=== PATIENT | male | born 1930 | race Caucasian/White ===

== ENCOUNTER → 2017-03-15 | Outpatient (CLI) | payer MEDICARE ==
[2017-03-15 09:23] LABS: Basophils # (A) 0.1 k/uL (0-0.2); Basophils % (A) 1 %; CHCM 34.6; Eosinophils # (A) 0.4 k/uL (0-0.7); Eosinophils % (A) 6 %; HDW 2.26; HGB 15.5 gm/dL (13.0-17.5); Luc # (Auto) 0.15; Luc % (Auto) 2; Lymphocytes # (A) 2.9 k/uL (1.0-4.8); Lymphocytes % (A) 42 %; MCH 31.5 pg (25.0-35.0); MCV 95.7 fL (80.0-100.0); Mean Platelet Volume 7.4; Monocytes # (A) 0.5 k/uL (0-1.0); Monocytes % (A) 7 %; Neutrophils # (A) 2.8 k/uL (1.3-7.7); Neutrophils % (A) 41 %; RBC 4.91 m/uL (4.30-5.90); RDW 13.4 % (11.5-15.5); WBC 6.7 k/uL (3.8-10.6); WBC (Perox) 6.38
[2017-03-15 09:45] LABS: ALT 41 U/L (21-72); AST 42 U/L (17-59); Alkaline Phosphatase 78 U/L (38-126); Anion Gap 7 mmol/L; Blood Urea Nitrogen 13 mg/dL (9-20); Calcium 9.1 mg/dL (8.4-10.2); Carbon Dioxide 34 mmol/L (22-30); Chloride 88 mmol/L (98-107); Cholesterol 170 mg/dL (<200); Glucose 86 mg/dL (74-99); HDL Cholesterol 64 mg/dL (40-60); Non-African American GFR(MDRD) >60 (>60 ml/min/1.73 sqM); Sodium 129 mmol/L (137-145); Total Bilirubin 1.2 mg/dL (0.2-1.3); Total Protein 6.6 g/dL (6.3-8.2)
== END | disposition home or self-care (01) ==
LOC: LABWHC1 08:28
PROVIDERS: ATTEND Internal Medicine
DX: E78.5 Hyperlipidemia, unspecified (principal); I10 Essential (primary) hypertension
CPT/HCPCS: 36415; 80053; 80061; 84439; 84443; 85025

== ENCOUNTER 2018-04-30 12:13 | Emergency (ER) | payer MEDICARE ==
[2018-04-30 12:37] VITALS: BP 149/81; PULSE 82; RESP 18; TEMP 98.3
[2018-04-30] MEDS ORDERED: KETOROLAC 60 MG/2 ML VIAL IM STA (13:11)
--- NOTE | 2018-04-30 13:20 | ED ---
General Adult HPI - General Chief complaint: Extremity Injury, Upper Stated complaint: swollen wrist Time Seen by Provider: 04/30/18 12:35 Source: patient, RN notes reviewed Mode of arrival: ambulatory Limitations: no limitations - History of Present Illness Initial comments: This is an 87-year-old male presents emergency Department complaining of right medial wrist pain. Patient states the area is very tender and swollen. Patient doesn't recall any injury. Patient denies any hand pain. Patient was elbow pain. Patient denies any history of gout. Patient denies any fever chills. Patient states he woke up this morning with the pain is the first time he noticed it. - Related Data Allergies Allergy/AdvReac Type Severity Reaction Status Date / Time aspirin Allergy Unknown Verified 04/30/18 12:37 Review of Systems ROS Statement: Those systems with pertinent positive or pertinent negative responses have been documented in the HPI. ROS Other: All systems not noted in ROS Statement are negative. Past Medical History Past Medical History: Asthma History of Any Multi-Drug Resistant Organisms: None Reported Past Surgical History: No Surgical Hx Reported Past Psychological History: No Psychological Hx Reported Smoking Status: Never smoker Past Alcohol Use History: None Reported Past Drug Use History: None Reported General Exam - General Exam Comments Initial Comments: GENERAL Patient is well-developed and well-nourished. Patient is in mild distress. EYES Patient's pupils are equal and round. Extraocular motion is intact SKIN Unremarkable NEURO The patient is alert and oriented 3 PYSCH Patient has normal interpersonal interactions. MUSCULOSKELETAL Patient's right medial wrist is tender and mildly swollen. Limitations: no limitations Course Vital Signs 04/30/18 12:34 Temperature 98.3 F Pulse Rate 82 Respiratory 18 Rate Blood Pressure 149/81 O2 Sat by Pulse 95 Oximetry Medical Decision Making - Medical Decision Making X-ray of the wrist showed no acute abnormality. Disposition Clinical Impression: Sprain and strain of wrist Disposition: HOME SELF-CARE Condition: Good Instructions: Wrist Injury (ED) Additional Instructions: Patient should take 400 mg of Motrin every 6 hours. Is patient prescribed a controlled substance at d/c from ED?: No Referrals: Nasrin Carr MD [Primary Care Provider] - 1-2 days Time of Disposition: 14:34
--- NOTE | 2018-04-30 14:11 | XR ---
EXAMINATION TYPE: XR wrist complete RT DATE OF EXAM: 04/30/2018 COMPARISON: NONE HISTORY: 87-year-old male pain and swelling lateral aspect TECHNIQUE: 4 views FINDINGS: Diffuse osteopenia. Tiny 2 mm density adjacent to the radial styloid process. There is TFC calcificat ion as well as scattered synovial calcification. Large chronic ununited fracture fragment measuring 1 .3 cm of the ulnar styloid process. No acute fracture, subluxation, or dislocation seen. Moderate deg enerative change at the triscaphe joint and first MCP joint. Mild at the first CMC joint. IMPRESSION: 1. TFC and scattered synovial calcifications. Findings could be idiopathic or could reflect CPPD. 2. Additional tiny 2 mm calcification adjacent to the radial styloid process. If pain localizes here, a calcific capsulitis is possible. 3. 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 4. Osteopenia without acute fracture seen. 5. Degenerative changes at the thumb and triscaphe joint.
== END 2018-04-30 15:00 | disposition home or self-care (01) ==
LOC: EC 12:13
DX: S66.911A Strain of unspecified muscle, fascia and tendon at wrist and hand level, right hand, initial encounter (principal); S63.501A Unspecified sprain of right wrist, initial encounter; Z88.6 Allergy status to analgesic agent
CPT/HCPCS: 96372; 99283

== ENCOUNTER → 2018-05-07 | Outpatient (CLI) | payer MEDICARE ==
[2018-05-07 12:01] LABS: Basophils % (A) 0 %; Eosinophils # (A) 0.3 k/uL (0-0.7); Eosinophils % (A) 4 %; HCT 44.3 % (39.0-53.0); HGB 14.9 gm/dL (13.0-17.5); Lymphocytes # (A) 2.2 k/uL (1.0-4.8); Lymphocytes % (A) 35 %; MCH 31.9 pg (25.0-35.0); MCHC 33.6 g/dL (31.0-37.0); MCV 95.1 fL (80.0-100.0); Mean Platelet Volume 6.5; Monocytes # (A) 0.3 k/uL (0-1.0); Monocytes % (A) 5 %; Neutrophils # (A) 3.4 k/uL (1.3-7.7); Neutrophils % (A) 54 %; Platelet Count 273 k/uL (150-450); RBC 4.66 m/uL (4.30-5.90); RDW 12.1 % (11.5-15.5); WBC 6.3 k/uL (3.8-10.6)
[2018-05-07 12:22] LABS: Albumin 3.7 g/dL (3.5-5.0); Calcium 9.3 mg/dL (8.4-10.2); Potassium 4.4 mmol/L (3.5-5.1); Total Protein 6.5 g/dL (6.3-8.2)
[2018-05-07 12:37] LABS: T4, Free (Free Thyroxine) 1.29 ng/dL (0.78-2.19)
== END | disposition home or self-care (01) ==
LOC: LABWHC1 10:31
PROVIDERS: ATTEND Internal Medicine
DX: Z00.00 Encounter for general adult medical examination without abnormal findings (principal); E78.5 Hyperlipidemia, unspecified; E87.1 Hypo-osmolality and hyponatremia
CPT/HCPCS: 36415; 80053; 80061; 84439; 84443; 85025

== ENCOUNTER 2018-10-21 09:13 | Observation (INO) | payer MEDICARE ==
[2018-10-21] MEDS ORDERED: MORPHINE SULFATE 4 MG/ML SYRINGE IV STA (10:02)
[2018-10-21] MEDS ORDERED: SODIUM CHLORIDE 0.9% 500 ML 500 ML IV ONE (10:02)
[2018-10-21] MEDS ORDERED: methylPREDNISolone SOD SUCCI 125 MG/2 ML VIAL IV STA (10:04)
--- NOTE | 2018-10-21 10:06 | ED ---
General Adult HPI - General Chief complaint: Fall Stated complaint: Back pain Time Seen by Provider: 10/21/18 09:45 Source: patient, RN notes reviewed Mode of arrival: EMS Limitations: no limitations - History of Present Illness Initial comments: Patient is a pleasant 88-year-old male presenting to the emergency Department with son-in-law for back problems. Patient did have a fall 1 month ago and may have had some other falls. Patient has no history of chronic back problems prior to that. Patient has gone and orthopedics in [place] as well as e mergency department there. Patient has had x-rays and has had steroid injection. Patient is having difficulty getting around the house. Patient has decreased appetite. Area of discomfort is lower back. Discomfort does extend towards the bilateral buttocks and legs. - Related Data Home Medications Medication Instructions Recorded Confirmed ALPRAZolam [Xanax] 0.25 mg PO Q12H PRN 10/21/18 10/21/18 Acetaminophen-Codeine 300-30mg 1 tab PO Q6H PRN 10/21/18 10/21/18 [Tylenol w/codeine #3] Albuterol Sulfate [Proair Hfa] 2 puff INHALATION RT-QID PRN 10/21/18 10/21/18 Hydrochlorothiazide [Hydrodiuril] 25 mg PO MOWEFR 10/21/18 10/21/18 Mometasone/Formoterol [Dulera 200 2 puff INHALATION RT-BID 10/21/18 10/21/18 Mcg/5 Mcg Inhaler] Montelukast Sodium [Singulair] 10 mg PO HS 10/21/18 10/21/18 Zolpidem [Ambien] 5 mg PO HS 10/21/18 10/21/18 amLODIPine BESYLATE [Norvasc] 2.5 mg PO DAILY 10/21/18 10/21/18 Allergies Allergy/AdvReac Type Severity Reaction Status Date / Time aspirin Allergy Unknown Verified 04/30/18 12:37 Review of Systems ROS Statement: Those systems with pertinent positive or pertinent negative responses have been documented in the HPI. ROS Other: All systems not noted in ROS Statement are negative. Constitutional: Denies: fever Eyes: Denies: eye pain ENT: Denies: ear pain Respiratory: Denies: dyspnea Cardiovascular: Denies: chest pain Endocrine: Denies: fatigue Gastrointestinal: Denies: abdominal pain Genitourinary: Denies: dysuria Musculoskeletal: Reports: as per HPI, back pain Skin: Denies: rash Neurological: Denies: weakness Past Medical History Past Medical History: Asthma Additional Past Medical History / Comment(s): [place] History of Any Multi-Drug Resistant Organisms: None Reported Past Surgical History: No Surgical Hx Reported Past Psychological History: No Psychological Hx Reported Smoking Status: Never smoker Past Alcohol Use History: None Reported Past Drug Use History: None Reported General Exam Limitations: no limitations General appearance: alert, in no apparent distress Head exam: Present: atraumatic Eye exam: Present: normal appearance Neck exam: Present: normal inspection Respiratory exam: Present: normal lung sounds bilaterally Cardiovascular Exam: Present: regular rate, normal rhythm Expanded Peripheral pulses: 2+: Posterior Tibialis (R), Posterior Tibialis (L) GI/Abdominal exam: Present: soft. Absent: distended, tenderness, pulsatile mass Extremities exam: Present: normal inspection, full ROM. Absent: tenderness Back exam: Absent: tenderness Neurological exam: Present: alert. Absent: motor sensory deficit Psychiatric exam: Present: normal affect, normal mood Skin exam: Present: normal color Course Vital Signs 10/21/18 10/21/18 09:20 12:08 Temperature 98.8 F Pulse Rate 85 81 Respiratory 18 18 Rate Blood Pressure 147/74 173/85 O2 Sat by Pulse 97 96 Oximetry Medical Decision Making - Medical Decision Making Patient reevaluated. Patient and family updated. Case was discussed in detail with Dr. Milner, who will admit. Case was earlier discussed with Mariana, with Dr. Villarreal, covering for Dr. Carr who did recommend admission to Dr. Vitale. - Lab Data Result diagrams: 10/21/18 11:15 10/21/18 11:15 Lab Results 10/21/18 10/21/18 10/21/18 Range/Units 11:15 11:15 11:20 WBC 9.5 (3.8-10.6) k/uL RBC 4.62 (4.30-5.90) m/uL Hgb 14.1 (13.0-17.5) gm/dL Hct 43.0 (39.0-53.0) % MCV 93.2 (80.0-100.0) fL MCH 30.6 (25.0-35.0) pg MCHC 32.8 (31.0-37.0) g/dL RDW 12.6 (11.5-15.5) % Plt Count 319 (150-450) k/uL Neutrophils % 79 % Lymphocytes % 12 % Monocytes % 7 % Eosinophils % 1 % Basophils % 0 % Neutrophils # 7.4 (1.3-7.7) k/uL Lymphocytes # 1.2 (1.0-4.8) k/uL Monocytes # 0.6 (0-1.0) k/uL Eosinophils # 0.1 (0-0.7) k/uL Basophils # 0.0 (0-0.2) k/uL Sodium 133 L (137-145) mmol/L Potassium 4.0 (3.5-5.1) mmol/L Chloride 98 (98-107) mmol/L Carbon Dioxide 24 (22-30) mmol/L Anion Gap 11 mmol/L BUN 25 H (9-20) mg/dL Creatinine 0.78 (0.66-1.25) mg/dL Est GFR (CKD-EPI)AfAm >90 (>60 ml/min/1.73 sqM) Est GFR (CKD-EPI)NonAf 80 (>60 ml/min/1.73 sqM) Glucose 70 L (74-99) mg/dL Calcium 8.9 (8.4-10.2) mg/dL Total Bilirubin 1.6 H (0.2-1.3) mg/dL AST 41 (17-59) U/L ALT 33 (21-72) U/L Alkaline Phosphatase 94 (38-126) U/L Total Protein 5.5 L (6.3-8.2) g/dL Albumin 3.1 L (3.5-5.0) g/dL Urine Color Yellow Urine Appearance Clear (Clear) Urine pH 6.5 (5.0-8.0) Ur Specific [place] 1.012 (1.001-1.035) Urine Protein Trace H (Negative) Urine Glucose (UA) Negative (Negative) Urine Ketones 2+ H (Negative) Urine Blood Trace H (Negative) Urine Nitrite Negative (Negative) Urine Bilirubin Negative (Negative) Urine Urobilinogen <2.0 (<2.0) mg/dL Ur Leukocyte Esterase Large H (Negative) Urine RBC 3 (0-5) /hpf Urine WBC 35 H (0-5) /hpf Ur Squamous Epith Cells <1 (0-4) /hpf Urine Bacteria Rare H (None) /hpf Urine Mucus Rare H (None) /hpf - Radiology Data Radiology results: image reviewed (Lower spine x-ray shows no acute compression deformity. Anterolisthesis L5 on S1. Diffuse osseous demineralization is also seeing.) Disposition Clinical Impression: Low back pain, UTI (urinary tract infection), Dehydration Disposition: ADMITTED IP TO THIS HOSP Is patient prescribed a controlled substance at d/c from ED?: No Referrals: Nasrin Carr MD [Primary Care Provider] - 1-2 days Decision Time: 13:17
[2018-10-21 11:32] LABS: Basophils % (A) 0 %; Eosinophils # (A) 0.1 k/uL (0-0.7); Eosinophils % (A) 1 %; HGB 14.1 gm/dL (13.0-17.5); Lymphocytes # (A) 1.2 k/uL (1.0-4.8); Lymphocytes % (A) 12 %; MCH 30.6 pg (25.0-35.0); MCHC 32.8 g/dL (31.0-37.0); MCV 93.2 fL (80.0-100.0); Mean Platelet Volume 6.4; Monocytes # (A) 0.6 k/uL (0-1.0); Monocytes % (A) 7 %; Neutrophils # (A) 7.4 k/uL (1.3-7.7); Neutrophils % (A) 79 %; Platelet Count 319 k/uL (150-450); RBC 4.62 m/uL (4.30-5.90); RDW 12.6 % (11.5-15.5); WBC 9.5 k/uL (3.8-10.6)
[2018-10-21 11:47] LABS: Appearance,Urine Clear (Clear); Bacteria,Urine Rare /hpf; Bilirubin,Urine Negative (Negative); Blood,Urine Trace (Negative); Color,Urine Yellow; Glucose,Urine (UA) Negative (Negative); Ketones,Urine 2+ (Negative); Leukocyte Esterase,Urine Large (Negative); Mucus,Urine Rare /hpf; Nitrite,Urine Negative (Negative); PH, Urine 6.5 (5.0-8.0); Protein,Urine Trace (Negative); RBC,Urine 3 /hpf (0-5); Specific Gravity,Urine 1.012 (1.001-1.035); Squamous Epithelial Cell,Urine <1 /hpf (0-4); Urobilinogen,Urine <2.0 mg/dL (<2.0); WBC,Urine 35 /hpf (0-5)
--- NOTE | 2018-10-21 11:50 | XR ---
EXAMINATION TYPE: XR lumbar spine 2 or 3V DATE OF EXAM: 10/21/2018 CLINICAL HISTORY: Back pain after a fall TECHNIQUE: Frontal and lateral images of the lumbar spine are obtained. COMPARISON: None FINDINGS: There are 5 lumbar type vertebral bodies identified. There is diffuse osseous demineraliza tion. Grade 1 anterolisthesis is seen of L5 on S1. No vertebral body height loss of the lumbar spine is seen. Facet arthropathy is present from L3 through S1. Intervertebral disc space narrowing is seen at L3-L4. Mild atherosclerosis of the abdominal aorta is noted. IMPRESSION: No acute compression deformity of the lumbar spine. 1 anterolisthesis of L5 on S1. This m ay relate to facet hypertrophy. Diffuse osseous demineralization is also seen.
[2018-10-21 11:55] LABS: ALT 33 U/L (21-72); AST 41 U/L (17-59); Albumin 3.1 g/dL (3.5-5.0); Alkaline Phosphatase 94 U/L (38-126); Anion Gap 11 mmol/L; Blood Urea Nitrogen 25 mg/dL (9-20); Calcium 8.9 mg/dL (8.4-10.2); Carbon Dioxide 24 mmol/L (22-30); Chloride 98 mmol/L (98-107); Glucose 70 mg/dL (74-99); Sodium 133 mmol/L (137-145); Total Bilirubin 1.6 mg/dL (0.2-1.3); Total Protein 5.5 g/dL (6.3-8.2)
[2018-10-21] MEDS ORDERED: cefTRIAXone IN SWFI 1,000 MG/10 ML SYRINGE IVP STA (13:23)
[2018-10-21] MEDS ORDERED: MORPHINE SULFATE 4 MG/ML SYRINGE IV PRN (13:23)
[2018-10-21] MEDS ORDERED: NALOXONE 0.4 MG/ML 1 ML VIAL IV PRN (13:23)
[2018-10-21 14:11] VITALS: BMI 22.8
[2018-10-21] MEDS: SODIUM CHLORIDE 0.9% 1,000 ML IV SCH (14:16)
[2018-10-21] MEDS: KETOROLAC 30 MG/ML 1 ML VIAL IVP PRN (16:00)
[2018-10-21] MEDS ORDERED: ALBUTEROL NEBULIZED 2.5 MG/3 ML INHALATION PRN (16:35)
--- NOTE | 2018-10-21 16:42 | P.HPIM ---
History of Present Illness Patient is a pleasant 88-year-old the male came in with complaints of back pain did have some falls. Patient followed up the with orthopedic surgery as an outpatient and it did get extensive recent steroid injection patient did get an x-ray showed spondylolisthesis. Patient is complaining of severe radicular pain in both legs denied any increased weakness, and tingling numbness but does have sharp pain radiating to both buttock areas more so in the left side. Denied any bowel or bladder incontinence. Patient is being admitted because of extreme poor functionality and may need placement and to subacute rehabilitation. Pat ieshaina denied any UTI symptoms although urine is bit abnormal with positive leukocyte esterase elevated white blood cell count because of which patient was started on Rocephin patient may have mostly asymptomatic bacteriuria rather than UTI. Review of Systems REVIEW OF SYSTEMS: CONSTITUTIONAL: No fever, no malaise, no fatigue. HEENT: No recent visual problems or hearing problems. Denied any sore throat. CARDIOVASCULAR: No chest pain, orthopnea, PND, no palpitations, no syncope. PULMONARY: No shortness of breath, no cough, no hemoptysis. GASTROINTESTINAL: No diarrhea, no nausea, no vomiting, no abdominal pain. NEUROLOGICAL: No headaches, no weakness, no numbness. HEMATOLOGICAL: Denies any bleeding or petechiae. GENITOURINARY: Denies any burning micturition, frequency, or urgency. MUSCULOSKELETAL/RHEUMATOLOGICAL: As mentioned in HPI ENDOCRINE: Denies any polyuria or polydipsia. The rest of the 14-point review of systems is negative. Past Medical History Past Medical History: Asthma, Hearing Disorder / Deafness, Memory Impairment Additional Past Medical History / Comment(s): Some short term memory problems, [place] bilaterally. History of Any Multi-Drug Resistant Organisms: None Reported Past Surgical History: Appendectomy Additional Past Surgical History / Comment(s): Low back injection, colonoscopies, nasal polyps removed. Past Anesthesia/Blood Transfusion Reactions: No Reported Reaction Smoking Status: Never smoker - Past Family History Father Additional Family Medical History / Comment(s): Father of heart problems at the ageof 45yrs. Mother Family Medical History: No Reported History Medications and Allergies Home Medications Medication Instructions Recorded Confirmed Type ALPRAZolam [Xanax] 0.25 mg PO Q12H PRN 10/21/18 10/21/18 History Acetaminophen-Codeine 300-30mg 1 tab PO Q6H PRN 10/21/18 10/21/18 History [Tylenol w/codeine #3] Albuterol Sulfate [Proair Hfa] 2 puff INHALATION RT-QID PRN 10/21/18 10/21/18 History Hydrochlorothiazide [Hydrodiuril] 25 mg PO MOWEFR 10/21/18 10/21/18 History Mometasone/Formoterol [Dulera 200 2 puff INHALATION RT-BID 10/21/18 10/21/18 History Mcg/5 Mcg Inhaler] Montelukast Sodium [Singulair] 10 mg PO HS 10/21/18 10/21/18 History Zolpidem [Ambien] 5 mg PO HS 10/21/18 10/21/18 History amLODIPine BESYLATE [Norvasc] 2.5 mg PO DAILY 10/21/18 10/21/18 History Allergies Allergy/AdvReac Type Severity Reaction Status Date / Time aspirin Allergy Unknown Verified 04/30/18 12:37 Physical Exam Vitals: Vital Signs Temp Pulse Resp BP Pulse Ox 10/21/18 15:15 98.7 F 80 16 163/87 95 10/21/18 14:19 98.9 F 81 16 160/81 96 10/21/18 12:08 81 18 173/85 96 10/21/18 09:20 98.8 F 85 18 147/74 97 Intake and Output 10/21/18 10/21/18 10/21/18 06:59 14:59 22:59 Other: Weight 78.517 kg PHYSICAL EXAMINATION: GENERAL: The patient is alert and oriented x3, not in any acute distress. Well developed, well nourished. HEENT: Pupils are round and equally reacting to light. EOMI. No scleral icterus. No conjunctival pallor. Normocephalic, atraumatic. No pharyngeal erythema. No thyromegaly. CARDIOVASCULAR: S1 and S2 present. No murmurs, rubs, or gallops. PULMONARY: Chest is clear to auscultation, no wheezing or crackles. ABDOMEN: Soft, nontender, nondistended, normoactive bowel sounds. No palpable organomegaly. MUSCULOSKELETAL: Radicular pain as mentioned in HPI EXTREMITIES: No cyanosis, clubbing, or pedal edema. NEUROLOGICAL: Gross neurological examination did not reveal any focal deficits. SKIN: No rashes. Results CBC & Chem 7: 10/21/18 11:15 10/21/18 11:15 Labs: Abnormal Lab Results - Last 24 Hours (Table) 10/21/18 10/21/18 Range/Units 11:15 11:20 Sodium 133 L (137-145) mmol/L BUN 25 H (9-20) mg/dL Glucose 70 L (74-99) mg/dL Total Bilirubin 1.6 H (0.2-1.3) mg/dL Total Protein 5.5 L (6.3-8.2) g/dL Albumin 3.1 L (3.5-5.0) g/dL Urine Protein Trace H (Negative) Urine Ketones 2+ H (Negative) Urine Blood Trace H (Negative) Ur Leukocyte Esterase Large H (Negative) Urine WBC 35 H (0-5) /hpf Urine Bacteria Rare H (None) /hpf Urine Mucus Rare H (None) /hpf Thrombosis Risk Factor Assmnt - Choose All That Apply Any of the Below Risk Factors Present?: Yes Other Risk Factors: Yes Each Risk Factor Represents 3 Points: Age 75 years or older Other congenital or acquired thrombophilia - If yes, enter type in comment: No Thrombosis Risk Factor Assessment Total Risk Factor Score: 3 Thrombosis Risk Factor Assessment Level: Moderate Risk Assessment and Plan Plan: Lumbar radiculopathy with poor functionality, consulted orthopedic surgery patient will be started on Decadron PT and OT consultation, patient may need to disposition to subacute rehabilitation -Hyponatremia secondary to hydrochlorothiazide which will be held amlodipine dose will be increased patient blood pressure is bit elevated because of the pain. Patient will be started on Toradol as well for pain. -Hypertension -Possible asymptomatic bacteriuria possibility of urinary tract infection is low -Asthma without any significant exacerbation
[2018-10-21] MEDS: DEXAMETHASONE 4 MG TAB PO SCH ×2 (17:36→21:14)
[2018-10-21] MEDS: Acetaminophen-Codeine 300-30mg TAB PO PRN (17:38)
[2018-10-21] MEDS: SYMBICORT 160-4.5 MCG INHALER INHALATION SCH (19:27)
[2018-10-21] MEDS: FAMOTIDINE 20 MG TAB PO SCH (21:14)
[2018-10-21] MEDS: MONTELUKAST 10 MG TAB PO SCH (21:14)
[2018-10-21] MEDS: ZOLPIDEM 5 MG TAB PO SCH (21:14)
[2018-10-21] MEDS: HEPARIN SODIUM,PORCINE 5,000 UNIT/ML 1 ML VIAL SQ SCH (21:14)
[2018-10-22] MEDS: SODIUM CHLORIDE 0.9% 1,000 ML IV SCH ×2 (06:18→17:03)
[2018-10-22] MEDS: amLODIPine 5 MG TAB PO SCH (07:25)
[2018-10-22] MEDS: FAMOTIDINE 20 MG TAB PO SCH ×2 (07:25→21:12)
[2018-10-22] MEDS: DEXAMETHASONE 4 MG TAB PO SCH ×3 (07:25→21:55)
[2018-10-22] MEDS: HEPARIN SODIUM,PORCINE 5,000 UNIT/ML 1 ML VIAL SQ SCH ×2 (07:25→21:12)
[2018-10-22] MEDS: Acetaminophen-Codeine 300-30mg TAB PO PRN ×3 (07:30→19:25)
[2018-10-22] MEDS: KETOROLAC 30 MG/ML 1 ML VIAL IVP PRN ×3 (07:31→21:56)
[2018-10-22] MEDS ORDERED: HYDROCHLOROTHIAZIDE 25 MG TAB PO SCH (09:00)
[2018-10-22] MEDS: SYMBICORT 160-4.5 MCG INHALER INHALATION SCH ×2 (09:33→19:40)
--- NOTE | 2018-10-22 16:52 | P.CNOR ---
History of Present Illness - [facility] Consult date: 10/22/18 Requesting physician: Massimo Javier Consult reason: low back pain History of present illness: Patient is a very pleasant 88-year-old male who is seen and examined at bedside for further evaluation after consultation was placed for low back pain and lower extremity pain. Patient sustained a fall approximately 1 month ago where he fell into a ditch and was unable to get out of the ditch. He was taken to [facility] for further evaluation. He was not experiencing back pain at that time. Following that fall he has been experiencing some increased back pain along with some pain into the lower extremities and the buttocks. He presented back to [facility] for further evaluation. During his last trip to the emergency department he did undergo a steroid injection. He also was evaluated by orthopedics in [place] without significant acute finding s. He has continued to have some difficulty with ambulation and back pain. He presented to the emergency department yesterday, 10/21/2018 for further evaluation. Patient states he does live with his son-in-law. Patient states since his admission he is not experiencing any significant back pain. He feels his back pain and lower extremity and buttock pain has improved during his admission. His pain is currently being controlled with Toradol and Tylenol #3. At this time he does not feel he needs specific further treatment. He is currently happy with his treatment while in the hospital. Medicine is planning for placement to a subacute rehabilitation facility the time of discharge. X-ra ys of the lumbar spine were taken during his evaluation in emergency department. Past Medical History Past Medical History: Asthma, Hearing Disorder / Deafness, Memory Impairment Additional Past Medical History / Comment(s): Some short term memory problems, crow bilaterally. History of Any Multi-Drug Resistant Organisms: None Reported Past Surgical History: Appendectomy Additional Past Surgical History / Comment(s): Low back injection, colonosco pies, nasal polyps removed. Past Anesthesia/Blood Transfusion Reactions: No Reported Reaction Smoking Status: Never smoker - Past Family History Father Additional Family Medical History / Comment(s): Father of heart problems at the ageof 45yrs. Mother Family Medical History: No Reported History Medications and Allergies Home Medications Medication Instructions Recorded Confirmed Type ALPRAZolam [Xanax] 0.25 mg PO Q12H PRN 10/21/18 10/21/18 History Acetaminophen-Codeine 300-30mg 1 tab PO Q6H PRN 10/21/18 10/21/18 History [Tylenol w/codeine #3] Albuterol Sulfate [Proair Hfa] 2 puff INHALATION RT-QID PRN 10/21/18 10/21/18 History Hydrochlorothiazide [Hydrodiuril] 25 mg PO MOWEFR 10/21/18 10/21/18 History Mometasone/Formoterol [Dulera 200 2 puff INHALATION RT-BID 10/21/18 10/21/18 History Mcg/5 Mcg Inhaler] Montelukast Sodium [Singulair] 10 mg PO HS 10/21/18 10/21/18 History Zolpidem [Ambien] 5 mg PO HS 10/21/18 10/21/18 History amLODIPine BESYLATE [Norvasc] 2.5 mg PO DAILY 10/21/18 10/21/18 History Allergies Allergy/AdvReac Type Severity Reaction Status Date / Time aspirin Allergy Unknown Verified 04/30/18 12:37 Physical Examination Physical exam: Patient is awake, alert, and oriented 3 Vital signs stable Good chest excursion with deep inspiration and expiration Abdomen soft nontender Examination of lumbar spine reveals skin is intact with no abrasions, lacerations, or bruises; no erythema, purulence or signs of infection No significant pain with palpation of the lumbosacral spine Dorsiflexion, plantarflexion, and extensor hallucis longus positive sustained bilaterally Lower extremity strength 5/5 bilaterally Patient is able to lift legs off the bed independently without significant difficulty No lower extremity hyperreflexia bilaterally Straight leg test negative bilateral lower extremities No signs or symptoms of DVT; no calf pain No pain with internal and external rotation of the hips bilaterally Neurovascularly intact Results Pertinent studies: X-rays lumbosacral spine taken on 10/21/2018: L5-S1 significant degenerative disc disease and spondylolisthesis most likely due to spondylolysis; no evidence of vertebral body compression fracture - Labs Labs: Microbiology - Last 24 Hours (Table) 10/21/18 11:20 Urine Culture - Preliminary Urine,Voided H & H 10/21/18 Range/Units 11:15 Hgb 14.1 (13.0-17.5) gm/dL Hct 43.0 (39.0-53.0) % Result Diagrams: 10/21/18 11:15 10/21/18 11:15 Assessment and Plan Assessment: Assessment: Low back pain Lower extremity numbness and tingling, resolved L5-S1 significant degenerative disc disease L5-S1 spondylolisthesis Probable spondylolysis L5 History of recent falls (1) Spondylolisthesis at L5-S1 level Current Visit: Yes Status: Acute Code(s): M43.17 - SPONDYLOLISTHESIS, LUMBOSACRAL REGION SNOMED Code(s): 917417063 (2) Degenerative disc disease at L5-S1 level Current Visit: Yes Status: Acute Code(s): M51.36 - OTHER INTERVERTEBRAL DISC DEGENERATION, LUMBAR REGION SNOMED Code(s): 68106325 (3) History of recent fall Current Visit: Yes Status: Acute Code(s): Z91.81 - HISTORY OF FALLING SNOMED Code(s): 412952173 (4) Low back pain Current Visit: Yes Status: Acute Code(s): M54.5 - LOW BACK PAIN SNOMED Code(s): 921421070 Plan: Plan: 1. After reviewing of imaging, physical examination of the patient, and further discussion with the patient, we will currently plan to continue with conservative treatment. He has been experiencing recent falls and increased low back pain with lower extremity pain and pain in bilateral buttocks. The symptoms have improved during his admission here [facility]. We are not planning for surgical intervention at his lumbosacral spine. I do feel he could benefit from bracing given his ongoing back pain and evidence of spondylolisthesis. A prescription for an Exos LSO has been written, signed, and given the case management. They'll plan to try to obtain this brace for him. Once this brace is delivered and fitted appropriately, he may wear this brace for comfort support as needed during increased activities and ambulation. He will be cleared for discharge from orthopedic spine standpoint. We'll plan to have him follow up in outpatient setting on as-needed basis. If he has an exacerbation of his symptoms following discharge she may call the office to set up follow-up appointment. He may follow-up with René Kent PA-C or Dr. Jorge Ozuna at [facility]. 2. Patient will continue to be seen and examined by medicine for his other medical diagnoses Time with Patient: Greater than 30 (Including obtaining history, physical examination, reviewing of imaging, and dictation.)
--- NOTE | 2018-10-22 18:56 | P.PN ---
Subjective Progress Note Date: 10/22/18 Interval history: Patient is a pleasant 88-year-old the male came in with complaints of back pain did have some falls. Patient followed up the with orthopedic surgery as an outpatient and it did get extensive recent steroid injection patient did get an x-ray showed spondylolisthesis. Patient is complaining of severe radicular pain in both legs denied any increased weakness, and tingling numbness but does have sharp pain radiating to both buttock areas more so in the left side. Denied any bowel or bladder incontinence. Patient is being admitted because of extreme poor functionality and may need placement and to subacute rehabilitation. Patient denied any UTI symptoms although urine is bit abnormal with positive leukocyte esterase elevated white blood cell count because of which patient was started on Rocephin patient may have mostly asymptomatic bacteriuria rather than UTI. 10/22/2018 Evaluated by physical therapy, sub acute rehab recommended at discharge. Maintained on Decadron, Toradol. Complains of pain with movement/activity as mentioned above. Orthopedic spine evaluation pending. Afebrile. Urine culture in progress. Denies chest pain, palpitations or increasing shortness of breath. Denies lightheadedness , dizziness or focal deficits. Objective - Vital Signs Vital signs: Vital Signs Temp 97.4 F L 10/22/18 05:00 Pulse 81 10/22/18 05:00 Resp 16 10/22/18 05:00 BP 142/68 10/22/18 05:00 Pulse Ox 93 L 10/22/18 05:00 Intake & Output 10/21/18 10/22/18 10/22/18 18:59 06:59 18:59 Intake Total 840 Output Total 400 Balance 440 Weight 78.517 kg Intake: Intake, IV Titration 300 Amount Sodium Chloride 0.9% 1, 300 000 ml @ 75 mls/hr IV . [id number] [facility] Rx#:[id number] Oral 540 Output: Urine 400 Other: Voiding Method Urinal Urinal - Exam GENERAL: The patient is alert and oriented x3, no acute distress. Sitting up in a chair HEENT: Pupils are round and equally reacting to light. EOMI. No scleral icterus. No conjunctival pallor. Normocephalic, atraumatic. CARDIOVASCULAR: S1 and S2 present. No murmurs, rubs, or gallops. PULMONARY: Chest is clear to auscultation, no wheezing or crackles. ABDOMEN: Soft, nontender, nondistended, normoactive bowel sounds. No palpable organomegaly. MUSCULOSKELETAL: Radicular pain as mentioned in HPI EXTREMITIES: No cyanosis, clubbing, or pedal edema. NEUROLOGICAL: Gross neurological examination did not reveal any focal deficits. SKIN: No rashes. - Labs CBC & Chem 7: 10/21/18 11:15 10/21/18 11:15 Labs: Abnormal Lab Results - Last 24 Hours (Table) 10/21/18 10/21/18 Range/Units 11:15 11:20 Sodium 133 L (137-145) mmol/L BUN 25 H (9-20) mg/dL Glucose 70 L (74-99) mg/dL Total Bilirubin 1.6 H (0.2-1.3) mg/dL Total Protein 5.5 L (6.3-8.2) g/dL Albumin 3.1 L (3.5-5.0) g/dL Urine Protein Trace H (Negative) Urine Ketones 2+ H (Negative) Urine Blood Trace H (Negative) Ur Leukocyte Esterase Large H (Negative) Urine WBC 35 H (0-5) /hpf Urine Bacteria Rare H (None) /hpf Urine Mucus Rare H (None) /hpf Microbiology - Last 24 Hours (Table) 10/21/18 11:20 Urine Culture - Preliminary Urine,Voided Assessment and Plan Assessment: Lumbar radiculopathy with poor functionality, orthopedic spine evaluation pending -Hyponatremia secondary to hydrochlorothiazide,held -Hypertension, pain induced -Possible asymptomatic bacteriuria possibility of urinary tract infection low, culture pending -Asthma without any significant exacerbation Plan: Continue on current medication regime , Pepcid, heparin subcu ,monitoring and symptomatic treatment. Pain management. Continue on Decadron, Toradol. Orthopedic consult in place with recommendations pending. [facility] records are being obtained regarding back pain visits. Subacute rehab recommended at discharge as per PT. Further recommendations to follow. The impression and plan of care has been dictated as directed. : I performed a history and examination of this patient, discussed the same with the dictator. I agree with the dictator's note ,documented as a scribe. Any additional findings or plans will be noted.
[2018-10-22] MEDS: MONTELUKAST 10 MG TAB PO SCH (21:12)
[2018-10-22] MEDS: ZOLPIDEM 5 MG TAB PO SCH (22:51)
[2018-10-23] MEDS: Acetaminophen-Codeine 300-30mg TAB PO PRN ×2 (03:59→10:22)
[2018-10-23] MEDS: SYMBICORT 160-4.5 MCG INHALER INHALATION SCH (07:41)
[2018-10-23] MEDS: SODIUM CHLORIDE 0.9% 1,000 ML IV SCH (08:22)
[2018-10-23] MEDS: KETOROLAC 30 MG/ML 1 ML VIAL IVP PRN (08:29)
[2018-10-23 09:01] LABS: Basophils % (A) 0 %; Eosinophils % (A) 0 %; HCT 43.4 % (39.0-53.0); HGB 13.7 gm/dL (13.0-17.5); Lymphocytes # (A) 1.1 k/uL (1.0-4.8); Lymphocytes % (A) 10 %; MCHC 31.5 g/dL (31.0-37.0); MCV 95.2 fL (80.0-100.0); Mean Platelet Volume 6.9; Monocytes # (A) 0.3 k/uL (0-1.0); Monocytes % (A) 3 %; Neutrophils # (A) 10.4 k/uL (1.3-7.7); Neutrophils % (A) 87 %; Platelet Count 404 k/uL (150-450); RBC 4.56 m/uL (4.30-5.90); RDW 12.6 % (11.5-15.5); WBC 11.9 k/uL (3.8-10.6)
[2018-10-23 09:14] LABS: Calcium 8.9 mg/dL (8.4-10.2); Potassium 3.8 mmol/L (3.5-5.1)
[2018-10-23] MEDS: amLODIPine 5 MG TAB PO SCH (09:40)
[2018-10-23] MEDS: FAMOTIDINE 20 MG TAB PO SCH (09:40)
[2018-10-23] MEDS: DEXAMETHASONE 4 MG TAB PO SCH (09:40)
[2018-10-23] MEDS: HEPARIN SODIUM,PORCINE 5,000 UNIT/ML 1 ML VIAL SQ SCH (09:41)
[2018-10-23] MEDS ORDERED: SODIUM CHLORIDE 0.9% 1,000 ML IV SCH (10:45)
[2018-10-23] MEDS ORDERED: Acetaminophen-Codeine 300-30mg TAB PO PRN (11:25)
[2018-10-23] MEDS ORDERED: SENNOSIDES 8.6 MG TAB PO PRN (11:30)
--- NOTE | 2018-10-23 13:38 | P.PN ---
Subjective 88-year-old the male came in with complaints of back pain did have some falls. Patient followed up the with orthopedic surgery as an outpatient and it did get extensive recent steroid injection patient did get an x-ray showed spondylolisthesis. Patient is complaining of severe radicular pain in both legs denied any increased weakness, and tingling numbness but does have sharp pain radiating to both buttock areas more so in the left side. Denied any bowel or bladder incontinence. Patient is being admitted because of extreme poor functionality and may need placement and to subacute rehabilitation. Patient denied any UTI symptoms although urine is bit abnormal with positive leukocyte esterase elevated white blood cell count because of which patient was started on Rocephin patient may have mostly asymptomatic bacteriuria rather than UTI. 10/22/2018 Evaluated by physical therapy, sub acute rehab recommended at discharge. Maintained on Decadron, Toradol. Complains of pain with movement/activity as mentioned above. Orthopedic spine evaluation pending. Afebrile. Urine culture in progress. Denies chest pain, palpitations or increas ing shortness of breath. Denies lightheadedness , dizziness or focal deficits. 10/23/2018 Patient still has back pain was evaluated by orthopedic surgery had a brace patient will undergo physical therapy and subacute rehabilitation along with anti-inflammatories and pain management. Patient's radicular pain did improve Constitutional: Denied any fatigue denied any fever. Cardio vascular: denied any chest pain, palpitations Gastrointestinal denied any nausea vomiting Pulmonary: Denied any shortness of breath cough Neurologic denied any new focal deficits All inpatient medications were reviewed and appropriate changes in these medications as dictated in the interval history and assessment and plan. Objective - Vital Signs Vital signs: Vital Signs Temp 97.6 F 10/23/18 12:46 Pulse 89 10/23/18 12:46 Resp 17 10/23/18 12:46 BP 175/87 10/23/18 12:46 Pulse Ox 94 L 10/23/18 12:46 Intake & Output 10/22/18 10/23/18 10/23/18 18:59 06:59 18:59 Intake Total 1250 1180 Output Total 400 Balance 1250 780 Weight 78.517 kg Intake: Intake, IV Titration 100 Amount cefTRIAXone 1 gm In 100 Sodium Chloride 0.9% 50 ml @ 100 mls/hr IVPB [facility] Rx#:[id number] Oral 1150 1180 Output: Urine 400 Other: Voiding Method Urinal Urinal Urinal # Voids 2 - Exam GENERAL: The patient is alert and oriented x3, no acute distress. Sitting up in a chair HEENT: Pupils are round and equally reacting to light. EOMI. No scleral icterus. No conjunctival pallor. Normocephalic, atraumatic. CARDIOVASCULAR: S1 and S2 present. No murmurs, rubs, or gallops. PULMONARY: Patient has mild bibasilar crackles on exam with good air entry into bilateral lung pillai alert, chest x-ray most probably atelectasis ABDOMEN: Soft, nontender, nondistended, normoactive bowel sounds. No palpable organomegaly. MUSCULOSKELETAL: Radicular pain as mentioned in HPI EXTREMITIES: No cyanosis, clubbing, or pedal edema. NEUROLOGICAL: Gross neurological examination did not reveal any focal deficits. SKIN: No rashes. - Labs CBC & Chem 7: 10/23/18 08:09 10/23/18 08:09 Labs: Abnormal Lab Results - Last 24 Hours (Table) 10/23/18 10/23/18 Range/Units 08:09 08:09 WBC 11.9 H (3.8-10.6) k/uL Neutrophils # 10.4 H (1.3-7.7) k/uL Sodium 136 L (137-145) mmol/L BUN 43 H (9-20) mg/dL Glucose 134 H (74-99) mg/dL Assessment and Plan Plan: Lumbar radiculopathy with poor functionality, orthopedic surgery evaluated the patient continue with anti-inflammatories along with the Decadron possible is patient to subacute rehabilitation and patient decided to place for that -Hyponatremia secondary to hydrochlorothiazide which will be held amlodipine dose was increased. -Hypertension - asymptomatic bacteriuria possibility of urinary tract infection is low, antiemetics will be discontinued -Asthma without any significant exacerbation
--- NOTE | 2018-10-23 14:37 | P.DS ---
Providers Date of admission: 10/21/18 13:23 Attending physician: Thang Milner Consults: 10/21/18 13:23 Consult Physician Urgent Consulting Provider: Bandar Ozuna Consult Reason/Comments: back pain Do you want consulting provider notified?: Yes Primary care physician: Nasrin Lilly [facility] Course: 88-year-old the male came in with complaints of back pain did have some falls. Patient followed up the with orthopedic surgery as an outpatient and it did get extensive recent steroid injection patient did get an x-ray showed spondylolisthesis. Patient is complaining of severe radicular pain in both legs denied any increased weakness, and tingling numbness but does have sharp pain radiating to both buttock areas more so in the left side. Denied any bowel or bladder incontinence. Patient is being admitted because of extreme poor functionality and may need placement and to subacute rehabilitation. Patient denied any UTI symptoms although urine is bit abnormal with positive leukocyte esterase elevated white blood cell count because of which patient was started on Rocephin patient may have mostly asymptomatic bacteriuria rather than UTI. 10/22/2018 Evaluated by physical therapy, sub acute rehab recommended at discharge. Maintained on Decadron, Toradol. Complains of pain with movement/activity as mentioned above. Orthopedic spine evaluation pending. Afebrile. Urine culture in progress. Denies chest pain, palpitations or increasing shortness of breath. Denies lightheadedness , dizziness or focal deficits. 10/23/2018 Patient still has back pain was evaluated by orthopedic surgery had a brace patient will undergo physical therapy and subacute rehabilitation along with anti-inflammatories and pain management. Patient's radicular pain did improve. Patient is being discharged today to subacute rehabilitation - Exam GENERAL: The patient is alert and oriented x3, no acute distress. Sitting up in a chair HEENT: Pupils are round and equally reacting to light. EOMI. No scleral icterus. No conjunctival pallor. Normocephalic, atraumatic. CARDIOVASCULAR: S1 and S2 present. No murmurs, rubs, or gallops. PULMONARY: Patient has mild bibasilar crackles on exam with good air entry into bilateral lung pillai alert, chest x-ray most probably atelectasis ABDOMEN: Soft, nontender, nondistended, normoactive bowel sounds. No palpable organomegaly. MUSCULOSKELETAL: Radicular pain as mentioned in HPI EXTREMITIES: No cyanosis, clubbing, or pedal edema. NEUROLOGICAL: Gross neurological examination did not reveal any focal deficits. SKIN: No rashes. Assessment and Plan Plan: Lumbar radiculopathy with poor functionality, orthopedic surgery evaluated the patient continue with anti-inflammatories along with the Decadron -Hyponatremia secondary to hydrochlorothiazide which was discontinued amlodipine dose was increased. -Hypertension - asymptomatic bacteriuria possibility of urinary tract infection is low, antibiotics were discontinued and patient received 3 days of antibiotics here -Asthma without any significant exacerbation Plan - Discharge Summary Discharge Rx Participant: No New Discharge Prescriptions: New Dexamethasone [Hexadrol] 4 mg PO TID tab Etodolac [Lodine] 400 mg PO BID #10 tablet amLODIPine [Norvasc] 5 mg PO DAILY tab Famotidine [Pepcid] 20 mg PO BID tab Continue Montelukast Sodium [Singulair] 10 mg PO HS Mometasone/Formoterol [Dulera 200 Mcg/5 Mcg Inhaler] 2 puff INHALATION RT-BID Albuterol Sulfate [Proair Hfa] 2 puff INHALATION RT-QID PRN PRN Reason: Shortness Of Breath Zolpidem [Ambien] 5 mg PO HS #10 tab Changed Acetaminophen-Codeine 300-30mg [Tylenol w/codeine #3] 1 tab PO Q4HR PRN #14 tab PRN Reason: Pain Discontinued Hydrochlorothiazide [Hydrodiuril] 25 mg PO MOWEFR amLODIPine BESYLATE [Norvasc] 2.5 mg PO DAILY ALPRAZolam [Xanax] 0.25 mg PO Q12H PRN PRN Reason: Anxiety Discharge Medication List Albuterol Sulfate [Proair Hfa] 2 puff INHALATION RT-QID PRN 10/21/18 [History] Mometasone/Formoterol [Dulera 200 Mcg/5 Mcg Inhaler] 2 puff INHALATION RT-BID 10/21/18 [History] Montelukast Sodium [Singulair] 10 mg PO HS 10/21/18 [History] Acetaminophen-Codeine 300-30mg [Tylenol w/codeine #3] 1 tab PO Q4HR PRN #14 tab 10/23/18 [Rx] Dexamethasone [Hexadrol] 4 mg PO TID tab 10/23/18 [Rx] Etodolac [Lodine] 400 mg PO BID #10 tablet 10/23/18 [Rx] Famotidine [Pepcid] 20 mg PO BID tab 10/23/18 [Rx] Zolpidem [Ambien] 5 mg PO HS #10 tab 10/23/18 [Rx] amLODIPine [Norvasc] 5 mg PO DAILY tab 10/23/18 [Rx] Follow up Appointment(s)/Referral(s): Nasrin Carr MD [Primary Care Provider] - 1-2 days René Kent PAC [[employer]] - As Needed (Patient may follow-up with René Kent PA-C or Dr. Jorge Ozuna at [facility] on an as-needed basis following discharge. ) Activity/Diet/Wound Care/Special Instructions: 1. Patient may wear LSO brace for comfort or support during increase activities as needed Discharge Disposition: HOME WITH HOME HEALTH SERVICES
[2018-10-23 16:23] VITALS: BP 134/67; PULSE 82; RESP 12; TEMP 97.5
--- NOTE | 2018-10-24 07:23 | XR ---
EXAMINATION TYPE: XR chest 1V portable DATE OF EXAM: 10/23/2018 CLINICAL HISTORY: Abnormal physical exam, crackles in lung bases. ECF placement. TECHNIQUE: Single AP portable upright view of the chest is obtained. COMPARISON: None FINDINGS: Bibasilar opacities are present. There is mild cardiomegaly with atherosclerotic thoracic aorta. Upper lungs are clear without pneumothorax. Osseous structures are intact. IMPRESSION: There is mild cardiomegaly with small bilateral pleural effusions and associated bibasila r atelectasis and/or infiltrate noted. Consider progress study.
== END 2018-10-23 17:22 ==
LOC: EC 09:13 → 3NMEDONC 13:23
PROVIDERS: ADMIT Internal Medicine; ATTEND Internal Medicine
DX: M51.17 Intervertebral disc disorders with radiculopathy, lumbosacral region (principal); M43.17 Spondylolisthesis, lumbosacral region; D72.829 Elevated white blood cell count, unspecified; E87.1 Hypo-osmolality and hyponatremia; T50.2X5A Adverse effect of carbonic-anhydrase inhibitors, benzothiadiazides and other diuretics, initial encounter; E86.0 Dehydration; I10 Essential (primary) hypertension; R82.71 Bacteriuria; J45.909 Unspecified asthma, uncomplicated; R29.6 Repeated falls; Z91.81 History of falling; H91.90 Unspecified hearing loss, unspecified ear; R41.3 Other amnesia; Z79.51 Long term (current) use of inhaled steroids; Z79.899 Other long term (current) drug therapy; Z88.6 Allergy status to analgesic agent; Z82.49 Family history of ischemic heart disease and other diseases of the circulatory system
CPT/HCPCS: 96376 ×2; 96361 ×2; 96366; 96372 ×3; 96375 ×2; 96365; 99285; 36415; 94640 ×4; 97116; 97162; 97535; 97166; 80053; 80048; 85025 ×2; 81001; 87086; 87077; 87186; 72100; 71045; G0378 ×3; J8540 ×3; J2270; J1644 ×3; J2930; J0696 ×3; J1885 ×3

== ENCOUNTER 2018-11-06 11:36 | Inpatient (IN) | payer MEDICARE ==
[2018-11-06] MEDS ORDERED: SODIUM CHLORIDE 0.9% 1,000 ML IV STA (11:44)
[2018-11-06] MEDS ORDERED: FAMOTIDINE 20 MG/2 ML VIAL IV STA (11:51)
--- NOTE | 2018-11-06 12:04 | ED ---
GI Bleed HPI - General Stated complaint: abn labs Time Seen by Provider: 11/06/18 11:36 Source: RN/MD, EMS, RN notes reviewed, old records reviewed Mode of arrival: EMS - History of Present Illness Initial comments: This is a 88-year-old male with no known prior history of GI bleeding who currently is had a slow decline in his hemoglobin level last week or so. He was brought in by EMS for evaluation he apparently is having some dark stools. Patient does have lumbar radiculopathy and initially was not complaining of any pain and per paramedics she was ambulatory at the half-way. He presents w ith complaints of left lateral distal thigh pain. No other reported complaints this time no falls reported. No nausea no vomiting fevers chills sweats no complaints of abdominal pain. The patient himself is a poor historian MD complaint: melena, other - Related Data Home Medications Medication Instructions Recorded Confirmed Albuterol Sulfate [Proair Hfa] 2 puff INHALATION RT-QID PRN 10/21/18 11/06/18 Mometasone/Formoterol [Dulera 200 2 puff INHALATION RT-BID 10/21/18 11/06/18 Mcg/5 Mcg Inhaler] Montelukast Sodium [Singulair] 10 mg PO HS 10/21/18 11/06/18 HYDROcodone/APAP 7.5-325MG [[place] 1 tab PO Q4H PRN 11/06/18 11/06/18 7.5-325] Zolpidem [Ambien] 5 mg PO HS PRN 11/06/18 11/06/18 predniSONE 50 mg PO DAILY 11/06/18 11/06/18 Previous Rx's Medication Instructions Recorded Famotidine [Pepcid] 20 mg PO BID tab 10/23/18 amLODIPine [Norvasc] 5 mg PO DAILY tab 10/23/18 Allergies Allergy/AdvReac Type Severity Reaction Status Date / Time aspirin Allergy Unknown Verified 11/06/18 12:37 Review of Systems ROS Statement: Those systems with pertinent positive or pertinent negative responses have been documented in the HPI. ROS Other: All systems not noted in ROS Statement are negative. Past Medical History Past Medical History: Asthma, Hearing Disorder / Deafness, Memory Impairment Additional Past Medical History / Comment(s): Some short term memory problems, ely [place] bilaterally. History of Any Multi-Drug Resistant Organisms: None Reported Past Surgical History: Appendectomy Additional Past Surgical History / Comment(s): Low back injection, colonoscopies, nasal polyps removed. Past Anesthesia/Blood Transfusion Reactions: No Reported Reaction Smoking Status: Never smoker - Past Family History Father Additional Family Medical History / Comment(s): Father of heart problems at the ageof 45yrs. Mother Family Medical History: No Reported History General Exam - General Exam Comments Initial Comments: This is a well-developed well-nourished awake alert but confused gentleman General appearance: alert, anxious Head exam: Present: atraumatic, normocephalic, normal inspection Eye exam: Present: normal appearance, PERRL, EOMI. Absent: scleral icterus, conjunctival injection, periorbital swelling ENT exam: Present: normal exam, mucous membranes moist Neck exam: Present: normal inspection. Absent: tenderness, meningismus, lymphadenopathy Respiratory exam: Present: normal lung sounds bilaterally. Absent: respiratory distress, wheezes, rales, rhonchi, stridor Cardiovascular Exam: Present: regular rate, normal rhythm, normal heart sounds. Absent: systolic murmur, diastolic murmur, rubs, gallop, clicks GI/Abdominal exam: Present: soft, normal bowel sounds. Absent: distended, tenderness, guarding, rebound, rigid Rectal exam: Present: normal rectal tone, black stool Extremities exam: Present: normal inspection, full ROM, normal capillary refill. Absent: tenderness, pedal edema, joint swelling, calf tenderness Back exam: Present: normal inspection Neurological exam: Present: alert, oriented X3, CN II-XII intact Psychiatric exam: Present: normal affect, normal mood Skin exam: Present: warm, dry, intact, pallor. Absent: rash Course Vital Signs 11/06/18 11/06/18 11/06/18 11:38 15:16 15:44 Temperature 98.5 F 98.0 F Pulse Rate 74 80 79 Respiratory 18 18 18 Rate Blood Pressure 132/68 115/63 121/67 O2 Sat by Pulse 96 96 Oximetry 11/06/18 11/06/18 15:46 15:56 Temperature 97.5 F L Pulse Rate 77 80 Respiratory 18 18 Rate Blood Pressure 127/65 119/62 O2 Sat by Pulse 95 95 Oximetry - Reevaluation(s) Reevaluation #1: 11/06/18 16:27 I did reevaluate patient several occasions I did discuss findings the patient an d his son was present. Also discuss case with Dr. Howe. Patient be admitted for evaluation of apparent upper GI bleed and anemia with GI consultation. Reevaluation #2: 11/06/18 16:27 Patient's son did state that the patient did seem to have some difficult with speech for brief period time is unclear whether this represented symptoms secondary to the presenting complaints. He is back to his normal self at this time. Dr. Howe is aware Medical Decision Making - Lab Data Result diagrams: 11/06/18 12:04 11/06/18 12:04 Lab Results 11/06/18 11/06/18 11/06/18 Range/Units 12:04 12:04 12:04 WBC 21.5 H (3.8-10.6) k/uL RBC 2.23 L (4.30-5.90) m/uL Hgb 7.3 L (13.0-17.5) gm/dL Hct 21.4 L (39.0-53.0) % MCV 96.2 (80.0-100.0) fL MCH 32.9 (25.0-35.0) pg MCHC 34.2 (31.0-37.0) g/dL RDW 16.3 H (11.5-15.5) % Plt Count 213 (150-450) k/uL Neutrophils % 96 % Lymphocytes % 1 % Monocytes % 2 % Eosinophils % 1 % Basophils % 0 % Neutrophils # 20.6 H (1.3-7.7) k/uL Lymphocytes # 0.3 L (1.0-4.8) k/uL Monocytes # 0.4 (0-1.0) k/uL Eosinophils # 0.1 (0-0.7) k/uL Basophils # 0.0 (0-0.2) k/uL Anisocytosis Slight Macrocytosis Slight PT 11.6 (9.0-12.0) sec INR 1.1 (<1.2) APTT 23.2 (22.0-30.0) sec Sodium 134 L (137-145) mmol/L Potassium 4.5 (3.5-5.1) mmol/L Chloride 102 (98-107) mmol/L Carbon Dioxide 27 (22-30) mmol/L Anion Gap 5 mmol/L BUN 65 H (9-20) mg/dL Creatinine 1.14 (0.66-1.25) mg/dL Est GFR (CKD-EPI)AfAm 66 (>60 ml/min/1.73 sqM) Est GFR (CKD-EPI)NonAf 57 (>60 ml/min/1.73 sqM) Glucose 103 H (74-99) mg/dL Calcium 8.0 L (8.4-10.2) mg/dL Magnesium 2.3 (1.6-2.3) mg/dL Total Bilirubin 1.3 (0.2-1.3) mg/dL AST 24 (17-59) U/L ALT 39 (21-72) U/L Alkaline Phosphatase 67 (38-126) U/L Creatine Kinase 44 L (55-170) U/L Troponin I (0.000-0.034) ng/mL Total Protein 4.7 L (6.3-8.2) g/dL Albumin 2.8 L (3.5-5.0) g/dL Urine Color Urine Appearance (Clear) Urine pH (5.0-8.0) Ur Specific Gladys (1.001-1.035) Urine Protein (Negative) Urine Glucose (UA) (Negative) Urine Ketones (Negative) Urine Blood (Negative) Urine Nitrite (Negative) Urine Bilirubin (Negative) Urine Urobilinogen (<2.0) mg/dL Ur Leukocyte Esterase (Negative) Urine RBC (0-5) /hpf Urine WBC (0-5) /hpf Ur Squamous Epith Cells (0-4) /hpf Urine Bacteria (None) /hpf Urine Mucus (None) /hpf Stool Occult Blood (Negative) Blood Type Blood Type Confirm Blood Type Recheck Antibody Screen Crossmatch Spec Expiration Date 11/06/18 11/06/18 11/06/18 Range/Units 12:04 12:04 12:04 WBC (3.8-10.6) k/uL RBC (4.30-5.90) m/uL Hgb (13.0-17.5) gm/dL Hct (39.0-53.0) % MCV (80.0-100.0) fL MCH (25.0-35.0) pg MCHC (31.0-37.0) g/dL RDW (11.5-15.5) % Plt Count (150-450) k/uL Neutrophils % % Lymphocytes % % Monocytes % % Eosinophils % % Basophils % % Neutrophils # (1.3-7.7) k/uL Lymphocytes # (1.0-4.8) k/uL Monocytes # (0-1.0) k/uL Eosinophils # (0-0.7) k/uL Basophils # (0-0.2) k/uL Anisocytosis Macrocytosis PT (9.0-12.0) sec INR (<1.2) APTT (22.0-30.0) sec Sodium (137-145) mmol/L Potassium (3.5-5.1) mmol/L Chloride (98-107) mmol/L Carbon Dioxide (22-30) mmol/L Anion Gap mmol/L BUN (9-20) mg/dL Creatinine (0.66-1.25) mg/dL Est GFR (CKD-EPI)AfAm (>60 ml/min/1.73 sqM) Est GFR (CKD-EPI)NonAf (>60 ml/min/1.73 sqM) Glucose (74-99) mg/dL Calcium (8.4-10.2) mg/dL Magnesium (1.6-2.3) mg/dL Total Bilirubin (0.2-1.3) mg/dL AST (17-59) U/L ALT (21-72) U/L Alkaline Phosphatase (38-126) U/L Creatine Kinase (55-170) U/L Troponin I 0.044 H* (0.000-0.034) ng/mL Total Protein (6.3-8.2) g/dL Albumin (3.5-5.0) g/dL Urine Color Urine Appearance (Clear) Urine pH (5.0-8.0) Ur Specific Gladys (1.001-1.035) Urine Protein (Negative) Urine Glucose (UA) (Negative) Urine Ketones (Negative) Urine Blood (Negative) Urine Nitrite (Negative) Urine Bilirubin (Negative) Urine Urobilinogen (<2.0) mg/dL Ur Leukocyte Esterase (Negative) Urine RBC (0-5) /hpf Urine WBC (0-5) /hpf Ur Squamous Epith Cells (0-4) /hpf Urine Bacteria (None) /hpf Urine Mucus (None) /hpf Stool Occult Blood Positive (Negative) Blood Type Blood Type Confirm O Positive Blood Type Recheck Antibody Screen Crossmatch Spec Expiration Date 11/06/18 11/06/18 Range/Units 12:51 13:47 WBC (3.8-10.6) k/uL RBC (4.30-5.90) m/uL Hgb (13.0-17.5) gm/dL Hct (39.0-53.0) % MCV (80.0-100.0) fL MCH (25.0-35.0) pg MCHC (31.0-37.0) g/dL RDW (11.5-15.5) % Plt Count (150-450) k/uL Neutrophils % % Lymphocytes % % Monocytes % % Eosinophils % % Basophils % % Neutrophils # (1.3-7.7) k/uL Lymphocytes # (1.0-4.8) k/uL Monocytes # (0-1.0) k/uL Eosinophils # (0-0.7) k/uL Basophils # (0-0.2) k/uL Anisocytosis Macrocytosis PT (9.0-12.0) sec INR (<1.2) APTT (22.0-30.0) sec Sodium (137-145) mmol/L Potassium (3.5-5.1) mmol/L Chloride (98-107) mmol/L Carbon Dioxide (22-30) mmol/L Anion Gap mmol/L BUN (9-20) mg/dL Creatinine (0.66-1.25) mg/dL Est GFR (CKD-EPI)AfAm (>60 ml/min/1.73 sqM) Est GFR (CKD-EPI)NonAf (>60 ml/min/1.73 sqM) Glucose (74-99) mg/dL Calcium (8.4-10.2) mg/dL Magnesium (1.6-2.3) mg/dL Total Bilirubin (0.2-1.3) mg/dL AST (17-59) U/L ALT (21-72) U/L Alkaline Phosphatase (38-126) U/L Creatine Kinase (55-170) U/L Troponin I (0.000-0.034) ng/mL Total Protein (6.3-8.2) g/dL Albumin (3.5-5.0) g/dL Urine Color Yellow Urine Appearance Cloudy (Clear) Urine pH 5.5 (5.0-8.0) Ur Specific Gladys 1.022 (1.001-1.035) Urine Protein Trace H (Negative) Urine Glucose (UA) Negative (Negative) Urine Ketones Negative (Negative) Urine Blood Negative (Negative) Urine Nitrite Negative (Negative) Urine Bilirubin 2+ H (Negative) Urine Urobilinogen <2.0 (<2.0) mg/dL Ur Leukocyte Esterase Large H (Negative) Urine RBC 2 (0-5) /hpf Urine WBC 16 H (0-5) /hpf Ur Squamous Epith Cells 9 H (0-4) /hpf Urine Bacteria Occasional H (None) /hpf Urine Mucus Rare H (None) /hpf Stool Occult Blood (Negative) Blood Type O Positive Blood Type Confirm Blood Type Recheck CABO Indicated Antibody Screen NEGATIVE Crossmatch See Detail Spec Expiration Date 11/09/2018 5594 - EKG Data -: EKG Interpreted by Me (Atrial fibrillation rate is 76 QRS duration 70 QT since QTC 424/477 nonspec) Disposition Clinical Impression: Melena, Upper GI bleed, Anemia, Dehydration, Lumbar radiculopathy Disposition: ADMITTED IP TO THIS [facility] Condition: Fair Referrals: Aguilar Kumar MD [Primary Care Provider] - 1-2 days
[2018-11-06 12:31] LABS: Anisocytosis Slight; Basophils % (A) 0 %; Eosinophils # (A) 0.1 k/uL (0-0.7); Eosinophils % (A) 1 %; HCT 21.4 % (39.0-53.0); HGB 7.3 gm/dL (13.0-17.5); Lymphocytes # (A) 0.3 k/uL (1.0-4.8); Lymphocytes % (A) 1 %; MCH 32.9 pg (25.0-35.0); MCHC 34.2 g/dL (31.0-37.0); MCV 96.2 fL (80.0-100.0); Macrocytosis Slight; Mean Platelet Volume 7.5; Monocytes # (A) 0.4 k/uL (0-1.0); Monocytes % (A) 2 %; Neutrophils # (A) 20.6 k/uL (1.3-7.7); Neutrophils % (A) 96 %; Platelet Count 213 k/uL (150-450); RBC 2.23 m/uL (4.30-5.90); RDW 16.3 % (11.5-15.5); WBC 21.5 k/uL (3.8-10.6)
[2018-11-06 12:35] LABS: INR 1.1 (<1.2); Partial Thromboplastin Time 23.2 sec (22.0-30.0); Prothrombin Time 11.6 sec (9.0-12.0)
[2018-11-06 12:42] LABS: Albumin 2.8 g/dL (3.5-5.0); Magnesium 2.3 mg/dL (1.6-2.3); Potassium 4.5 mmol/L (3.5-5.1); Total Bilirubin 1.3 mg/dL (0.2-1.3); Total Protein 4.7 g/dL (6.3-8.2)
[2018-11-06] MEDS ORDERED: fentaNYL (PF) 50 MCG/ML 2 ML AMP IV STA (13:16)
[2018-11-06 14:14] LABS: Appearance,Urine Cloudy (Clear); Bacteria,Urine Occasional /hpf; Bilirubin,Urine 2+ (Negative); Blood,Urine Negative (Negative); Color,Urine Yellow; Glucose,Urine (UA) Negative (Negative); Ketones,Urine Negative (Negative); Leukocyte Esterase,Urine Large (Negative); Mucus,Urine Rare /hpf; Nitrite,Urine Negative (Negative); PH, Urine 5.5 (5.0-8.0); Protein,Urine Trace (Negative); RBC,Urine 2 /hpf (0-5); Specific Gravity,Urine 1.022 (1.001-1.035); Squamous Epithelial Cell,Urine 9 /hpf (0-4); Urobilinogen,Urine <2.0 mg/dL (<2.0)
--- NOTE | 2018-11-06 14:23 | XR ---
EXAMINATION TYPE: XR abdomen acute w cxr DATE OF EXAM: 11/06/2018 CLINICAL HISTORY: Slowly declining hemoglobin. Chest and abdominal pain . TECHNIQUE: Single frontal view of chest is obtained. Supine and upright views of the abdomen are acq uired. COMPARISON: Chest x-ray October 23, 2018. FINDINGS: Small left greater than right pleural effusions are felt present. There is patchy associate d bibasilar atelectasis. Cardiomegaly is redemonstrated with atherosclerotic aorta.. Osseous structu res are intact. Gas prominent small bowel loops throughout the central abdomen are seen. Gas and fecal material is s een in nondistended colon and rectum. Scattered pelvic phleboliths are noted. Advanced degenerative c hange right hip joint with marked joint space loss and [id number] formation is seen. There is moder ate axial joint space loss left hip. Osseous structures are demineralized. No pneumoperitoneum is not ed. IMPRESSION: 1. Cardiomegaly with small to tiny bilateral pleural effusions and associated patchy bibasilar atelec tasis. 2. Overall nonspecific but likely nonobstructive bowel gas pattern.
[2018-11-06] MEDS ORDERED: NALOXONE 0.4 MG/ML 1 ML VIAL IV PRN (16:31)
[2018-11-06] MEDS ORDERED: ALBUTEROL NEBULIZED 2.5 MG/3 ML INHALATION PRN (16:33)
[2018-11-06] MEDS ORDERED: ZOLPIDEM 5 MG TAB PO PRN (16:33)
[2018-11-06] MEDS: SODIUM CHLORIDE 0.9% 1,000 ML IV SCH (17:39)
[2018-11-06] MEDS: SYMBICORT 160-4.5 MCG INHALER INHALATION SCH (19:30)
[2018-11-06] MEDS: HYDROcodone/APAP 7.5-325MG 1 EACH TAB PO PRN (20:07)
[2018-11-06 20:37] VITALS: BMI 20.9
[2018-11-06] MEDS: PANTOPRAZOLE 40 MG/10 ML VIAL IV SCH (21:52)
[2018-11-06] MEDS: MONTELUKAST 10 MG TAB PO SCH ×2 (21:52→21:55)
[2018-11-06] MEDS: FAMOTIDINE 20 MG TAB PO SCH ×2 (21:52→21:55)
[2018-11-07] MEDS: SODIUM CHLORIDE 0.9% 1,000 ML IV SCH ×2 (02:58→11:32)
[2018-11-07 06:24] LABS: Anisocytosis Slight; Basophils % (A) 0 %; Eosinophils # (A) 0.1 k/uL (0-0.7); Eosinophils % (A) 1 %; HCT 23.4 % (39.0-53.0); HGB 7.7 gm/dL (13.0-17.5); Lymphocytes # (A) 0.4 k/uL (1.0-4.8); Lymphocytes % (A) 3 %; MCH 30.4 pg (25.0-35.0); MCHC 32.9 g/dL (31.0-37.0); MCV 92.4 fL (80.0-100.0); Mean Platelet Volume 9.1; Monocytes # (A) 0.4 k/uL (0-1.0); Monocytes % (A) 3 %; Neutrophils # (A) 12.5 k/uL (1.3-7.7); Neutrophils % (A) 93 %; Platelet Count 164 k/uL (150-450); RBC 2.53 m/uL (4.30-5.90); RDW 16.8 % (11.5-15.5); WBC 13.4 k/uL (3.8-10.6)
[2018-11-07 06:43] LABS: Calcium 7.8 mg/dL (8.4-10.2); Potassium 4.2 mmol/L (3.5-5.1)
[2018-11-07] MEDS: SYMBICORT 160-4.5 MCG INHALER INHALATION SCH ×2 (08:17→19:39)
[2018-11-07] MEDS: HYDROcodone/APAP 7.5-325MG 1 EACH TAB PO PRN (08:32)
[2018-11-07] MEDS: FAMOTIDINE 20 MG TAB PO SCH (08:33)
[2018-11-07] MEDS: predniSONE 50 MG TAB PO SCH (08:34)
[2018-11-07] MEDS: PANTOPRAZOLE 40 MG/10 ML VIAL IV SCH ×2 (08:34→22:03)
[2018-11-07] MEDS: amLODIPine 5 MG TAB PO SCH (08:34)
--- NOTE | 2018-11-07 16:22 | CT ---
EXAMINATION TYPE: CT pelvis wo con DATE OF EXAM: 11/07/2018 COMPARISON: Pain HISTORY: Low back and leg pain. CT DLP: 299.4 mGycm Automated exposure control for dose reduction was used. FINDINGS: Axial images were obtained at 3 mm thick sections. Bone soft tissue windows are reviewed. 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 Marked facet degenerative changes present L5-S1. Degenerative disc changes present L5-S1. There is degenerative joint changes of the sacroiliac joints bilaterally. There is loss of the joint space of the right hip. There is some narrowing of the left hip joint spac e. Symphysis pubis appears normal. No acute fractures are evident. Vascular calcifications within the aorta. Normal bowel gas is present. Diverticular changes are withi n the sigmoid colon. Urinary bladder is visualized is normal. Prostate hypertrophy and calcifications are present. IMPRESSION: 1. ADVANCED OSTEOARTHRITIC DEGENERATIVE CHANGE RIGHT HIP. MODERATE OSTEOARTHRITIC DEGENERATIVE CHANGE IN THE LEFT HIP IS PRESENT. 2. DEGENERATIVE DISC CHANGES L5-S1. FACET DEGENERATIVE CHANGES ARE ALSO PRESENT AT THIS LEVEL. 3. SACROILIAC JOINT DEGENERATIVE CHANGES.
--- NOTE | 2018-11-07 16:26 | CT ---
EXAMINATION TYPE: CT lumbar spine wo con DATE OF EXAM: 11/07/2018 4:08 PM COMPARISON: None HISTORY: Low back and leg pain CT DLP: 718.6 mGycm Automated exposure control for dose reduction was used. Unenhanced CT of the lumbar spine was performed. Bone and soft tissue window settings are submitted as well as coronal and sagittal reconstructions. L1-L2: Normal disc space height. No disc herniation protrusion or central stenosis. No facet joint arthropathy. No evidence for foraminal encroachment. L2-L3: Broad-based disc bulge has mild anterior thecal sac compression. No spinal canal stenosis is p resent. Neural foraminal narrowing is present to moderate degree slightly greater on the left. Correl ate with radicular symptoms. L3-L4: Mild disc bulge has anterior thecal sac flattening. Facet hypertrophy and ligamentum flavum queen s posterior lateral thecal sac compression. These are contributing to some spinal canal narrowing thr ough this level. There appears to be moderate to severe right and left foraminal stenosis secondary t o disc bulging and facet hypertrophy. L4-L5: Broad-based disc bulge has moderate anterior thecal sac flattening. No AP spinal canal stenosi s present. Facet hypertrophy and ligamentum flavum laxity of posterior lateral thecal sac compression contributing to lateral canal narrowing. Mild foraminal narrowing is present. L5-S1: Normal disc space height. No disc herniation protrusion or central stenosis. No facet joint arthropathy. No evidence for foraminal encroachment. In the sagittal reconstructed images there is a step-off of the possible cortical defect at approxima tely the S2 level. Correlate for location of the patient's pain. Sacral fracture is not excluded. Due to the plane of section obtained, axial and coronal images are nondiagnostic for this fracture. IMPRESSION: 1. Spinal canal stenosis due to mild to moderate disc bulging and facet hypertrophy and ligamentum fl avum laxity at the L3-4 level. 2. Spinal canal stenosis in the lateral direction due to facet hypertrophy and ligamentum flavum laxi ty L4-5. Some moderate flattening from disc bulge is also present at this level. 3. And sagittal reconstructed images there is a step-off of the anterior S2 region which could indica te an underlying sacral fracture. Correlate with location of the patient's pain.
[2018-11-07] MEDS: HYDROmorphone 0.5 MG/0.5 ML SYRINGE IVP PRN ×2 (16:49→22:04)
--- NOTE | 2018-11-07 18:52 | P.HPIM ---
History of Present Illness H&P Date: 11/07/18 Chief Complaint: Gastrointestinal bleeding, anemia 8-year-old patient known to Dr[facility] has never been seen in our office was brought EMS for evaluation apparently patient was having dark stools. Patient does have lumbar radiculopathy and initially was not complaining of any pain per paramedics he was ambulatory at the [facility] presents for his complaints of lateral distal thigh pain no other reported complaints no falls no nausea no vomiting patient has a very poor historian Review of Systems Constitutional: Reports as per HPI, Reports weakness Ears, nose, mouth and throat: Reports as per HPI Gastrointestinal: Reports as per HPI, Reports abdominal pain, Reports melena Genitourinary: Reports as per HPI Musculoskeletal: Reports low back pain Integumentary: Reports as per HPI Neurological: Reports as per HPI Past Medical History Past Medical History: Asthma, Dementia, Hearing Disorder / Deafness, Memory Impairment Additional Past Medical History / Comment(s): Some short term memory problems, [place] bilaterally. History of Any Multi-Drug Resistant Organisms: None Reported Past Surgical History: Appendectomy Additional Past Surgical History / Comment(s): Low back injection, colonoscopies, nasal polyps removed. Past Anesthesia/Blood Transfusion Reactions: No Reported Reaction Past Psychological History: No Psychological Hx Reported Additional Psychological History / Comment(s): Pt resides with his son-in-law. He ambulates with a walker. He no longer drives. His son in law plans to take over managing pt's medications and he drives pt to his appts. Smoking Status: Never smoker Past Alcohol Use History: None Reported Past Drug Use History: None Reported - Past Family History Father Additional Family Medical History / Comment(s): Father of heart problems at the ageof 45yrs. Mother Family Medical History: No Reported History Medications and Allergies Home Medications Medication Instructions Recorded Confirmed Type Albuterol Sulfate [Proair Hfa] 2 puff INHALATION RT-QID PRN 10/21/18 11/06/18 History Mometasone/Formoterol [Dulera 200 2 puff INHALATION RT-BID 10/21/18 11/06/18 History Mcg/5 Mcg Inhaler] Montelukast Sodium [Singulair] 10 mg PO HS 10/21/18 11/06/18 History Famotidine [Pepcid] 20 mg PO BID tab 10/23/18 11/06/18 Rx amLODIPine [Norvasc] 5 mg PO DAILY tab 10/23/18 11/06/18 Rx HYDROcodone/APAP 7.5-325MG [[place] 1 tab PO Q4H PRN 11/06/18 11/06/18 History 7.5-325] Zolpidem [Ambien] 5 mg PO HS PRN 11/06/18 11/06/18 History predniSONE 50 mg PO DAILY 11/06/18 11/06/18 History Allergies Allergy/AdvReac Type Severity Reaction Status Date / Time aspirin Allergy Unknown Verified 11/06/18 12:37 Physical Exam Osteopathic Statement: *. No significant issues noted on an osteopathic st ructural exam other than those noted in the History and Physical/Consult. Vitals: Vital Signs Temp Pulse Resp BP Pulse Ox 11/07/18 15:17 97.7 F 82 20 115/61 95 11/07/18 11:44 97.7 F 76 20 129/72 94 L 11/07/18 07:45 97.6 F 89 20 148/60 97 11/07/18 03:47 85 17 11/07/18 03:45 97.5 F L 85 17 130/61 96 11/07/18 01:02 85 17 11/07/18 00:55 97.1 F L 85 17 145/70 92 L 11/07/18 00:00 85 17 Intake and Output 11/07/18 11/07/18 11/07/18 06:59 14:59 22:59 Intake Total 600 Output Total 600 650 450 Balance 0 -650 -450 Intake: Intake, IV Titration 600 Amount Sodium Chloride 0.9% 1, 600 000 ml @ 100 mls/hr IV . Q10H [facility] Rx#:[id number] Output: Urine 600 650 450 Other: Voiding Method Diaper # Voids 1 1 1 Weight 76.5 kg General: [Patient awake, alert and oriented times 3. Patient in no acute distre ss.] HEENT: [PERRL. EOMI. No pharyngeal erythema or exudate.] Neck: [No adenopathy.] Cardiac: [Heart regular in rate and rhythm. No S3. No S4. No clicks, rubs. No murmur.] Lungs: [Clear to auscultation bilaterally.] Abdomen: [No mass. No organomegaly. Bowel sounds presnt and normoactive in all 4 quadrants.] Extremes: [No edema no cyanosis no claudication normal pulses] : [] Musculoskeletal: [No joint erythema, edema or tenderness.] Skin: [No rash.] Neurologic: [No lateralizing deficits. CN II - XII grossly intact.] Lymphatic: [No adenopathy.] Results CBC & Chem 7: 11/07/18 05:57 11/07/18 05:57 Labs: Abnormal Lab Results - Last 24 Hours (Table) 11/07/18 11/07/18 Range/Units 05:57 05:57 WBC 13.4 H (3.8-10.6) k/uL RBC 2.53 L (4.30-5.90) m/uL Hgb 7.7 L (13.0-17.5) gm/dL Hct 23.4 L (39.0-53.0) % RDW 16.8 H (11.5-15.5) % Neutrophils # 12.5 H (1.3-7.7) k/uL Lymphocytes # 0.4 L (1.0-4.8) k/uL Sodium 135 L (137-145) mmol/L Carbon Dioxide 31 H (22-30) mmol/L BUN 46 H (9-20) mg/dL Calcium 7.8 L (8.4-10.2) mg/dL Microbiology - Last 24 Hours (Table) 11/06/18 13:47 Urine Culture - Preliminary Urine,Voided Thrombosis Risk Factor Assmnt - Choose All That Apply Any of the Below Risk Factors Present?: Yes Each Factor Represents 1 point: Swollen legs (current) Other Risk Factors: Yes Each Risk Factor Represents 2 Points: Patient confined to bed Each Risk Factor Represents 3 Points: Age 75 years or older Other congenital or acquired thrombophilia - If yes, enter type in comment: No Thrombosis Risk Factor Assessment Total Risk Factor Score: 6 Thrombosis Risk Factor Assessment Level: High Risk Assessment and Plan (1) Anemia Current Visit: Yes Status: Acute Code(s): D64.9 - ANEMIA, UNSPECIFIED SNOMED Code(s): 714438982 (2) Dehydration Current Visit: Yes Status: Acute Code(s): E86.0 - DEHYDRATION SNOMED Code(s): 20779130 (3) Melena Current Visit: Yes Status: Acute Code(s): K92.1 - MELENA SNOMED Code(s): 0416578 (4) Low back pain Current Visit: No Status: Acute Code(s): M54.5 - LOW BACK PAIN SNOMED Code(s): 454516523 Plan: Consultation Dr. dorado a new general surgery regarding gastrointestinal bleed type and cross for 1 units of packed red cells Extensive pain management secondary to lumbar stenosis Will reassess in the morning Time with Patient: Greater than 30
--- NOTE | 2018-11-07 19:02 | P.CONS ---
History of Present Illness - Reason for Consult Consult date: 11/07/18 Anemia Requesting physician: Dmitry Canas Jr - Chief Complaint Dark stool - History of Present Illness The patient is a 88-year-old male with medical history significant for asthma, hearing disorder/gastritis, Ayaka impairment who presented to the hospital 2 to decrease in his hemoglobin and symptoms of dark stool. Of note history is limited as the patient is extremely hard of hearing and unable to answer questions. Reports from nursing staff and on review of the electronic medical record are of the patient having dark-colored stool over the recent past. No re ports of abdominal pain, nausea or vomiting, or gross red blood per rectum. Today the patient has had no further bowel movements. On presentation to the hospital hemoglobin was found to be 7.3 which subsequently trended to 7.7. Stool testing was positive for occult blood. X-ray of the abdomen was significant for a nonspecific bowel gas pattern. Review of Systems Review of systems could not be obtained and patient was started. Past Medical History Past Medical History: Asthma, Dementia, Hearing Disorder / Deafness, Memory I mpairment Additional Past Medical History / Comment(s): Some short term memory problems, [place] bilaterally. History of Any Multi-Drug Resistant Organisms: None Reported Past Surgical History: Appendectomy Additional Past Surgical History / Comment(s): Low back injection, colonoscopies, nasal polyps removed. Past Anesthesia/Blood Transfusion Reactions: No Reported Reaction Past Psychological History: No Psychological Hx Reported Additional Psychological History / Comment(s): Pt resides with his son-in-law. He ambulates with a walker. He no longer drives. His son in law plans to take over managing pt's medications and he drives pt to his appts. Smoking Status: Never smoker Past Alcohol Use History: None Reported Past Drug Use History: None Reported - Past Family History Father Additional Family Medical History / Comment(s): Father of heart problems at the ageof 45yrs. Mother Family Medical History: No Reported History Medications and Allergies Home Medications Medication Instructions Recorded Confirmed Type Albuterol Sulfate [Proair Hfa] 2 puff INHALATION RT-QID PRN 10/21/18 11/06/18 History Mometasone/Formoterol [Dulera 200 2 puff INHALATION RT-BID 10/21/18 11/06/18 History Mcg/5 Mcg Inhaler] Montelukast Sodium [Singulair] 10 mg PO HS 10/21/18 11/06/18 History Famotidine [Pepcid] 20 mg PO BID tab 10/23/18 11/06/18 Rx amLODIPine [Norvasc] 5 mg PO DAILY tab 10/23/18 11/06/18 Rx HYDROcodone/APAP 7.5-325MG [[place] 1 tab PO Q4H PRN 11/06/18 11/06/18 History 7.5-325] Zolpidem [Ambien] 5 mg PO HS PRN 11/06/18 11/06/18 History predniSONE 50 mg PO DAILY 11/06/18 11/06/18 History Allergies Allergy/AdvReac Type Severity Reaction Status Date / Time aspirin Allergy Unknown Verified 11/06/18 12:37 Physical Exam Vitals: Vital Signs Temp Pulse Resp BP Pulse Ox 11/07/18 15:17 97.7 F 82 20 115/61 95 11/07/18 11:44 97.7 F 76 20 129/72 94 L 11/07/18 07:45 97.6 F 89 20 148/60 97 11/07/18 03:47 85 17 11/07/18 03:45 97.5 F L 85 17 130/61 96 11/07/18 01:02 85 17 11/07/18 00:55 97.1 F L 85 17 145/70 92 L 11/07/18 00:00 85 17 Intake and Output 11/07/18 11/07/18 11/07/18 06:59 14:59 22:59 Intake Total 600 Output Total 600 650 450 Balance 0 -650 -450 Intake: Intake, IV Titration 600 Amount Sodium Chloride 0.9% 1, 600 000 ml @ 100 mls/hr IV . Q10H [facility] Rx#:[id number] Output: Urine 600 650 450 Other: Voiding Method Diaper # Voids 1 1 1 Weight 76.5 kg On physical examination, patient appears comfortable in no apparent distress. HEAD: Normocephalic, atraumatic. EYES: No scleral icterus. No conjunctival injection. MOUTH: No lesions, tongue midline. NECK: Trachea midline, no gross abnormalities. CHEST: Clear to auscultation with no wheezing or rhonchi appreciated. HEART: S1-S2 appreciated. ABDOMEN: Soft, obese. Bowel sounds are positive. No organomegaly. No guarding or rigidity. EXTREMITIES: No pedal edema. SKIN: No rashes, no jaundice. NEUROLOGIC: Alert but extremely hard of hearing. No focal deficits. Results CBC & Chem 7: 11/07/18 05:57 11/07/18 05:57 Labs: Abnormal Lab Results - Last 24 Hours (Table) 11/07/18 11/07/18 Range/Units 05:57 05:57 WBC 13.4 H (3.8-10.6) k/uL RBC 2.53 L (4.30-5.90) m/uL Hgb 7.7 L (13.0-17.5) gm/dL Hct 23.4 L (39.0-53.0) % RDW 16.8 H (11.5-15.5) % Neutrophils # 12.5 H (1.3-7.7) k/uL Lymphocytes # 0.4 L (1.0-4.8) k/uL Sodium 135 L (137-145) mmol/L Carbon Dioxide 31 H (22-30) mmol/L BUN 46 H (9-20) mg/dL Calcium 7.8 L (8.4-10.2) mg/dL Microbiology - Last 24 Hours (Table) 11/06/18 13:47 Urine Culture - Preliminary Urine,Voided Abdominal x-ray: report reviewed (X-ray of the abdomen with a nonspecific bowel gas pattern) Assessment and Plan Assessment: 1. Anemia of acute blood loss, patient presenting with complaints of melanotic stool found to have a hemoglobin of 7.7 stable from 7.6. Stool positive for occult blood. Suspicion is for possible upper GI bleed with differential including erosive gastritis/esophagitis, peptic ulcer disease, AVM or other etiology. 2. Melena Plan: Supportive care Clear liquid diet Nothing by mouth after midnight Plan for endoscopic evaluation with EGD in the morning Continue Protonix therapy Continue to monitor for signs or symptoms GI bleeding Continue to monitor hemoglobin and hematocrit and transfuse as needed Thank you for allowing us to participate in the care of the patient we will continue to follow
[2018-11-07] MEDS: MONTELUKAST 10 MG TAB PO SCH (22:04)
[2018-11-08] MEDS: SODIUM CHLORIDE 0.9% 1,000 ML IV SCH ×2 (00:50→16:46)
[2018-11-08] MEDS: HYDROmorphone 0.5 MG/0.5 ML SYRINGE IVP PRN ×4 (03:44→18:02)
[2018-11-08] MEDS: PANTOPRAZOLE 40 MG/10 ML VIAL IV SCH ×2 (08:18→21:31)
[2018-11-08] MEDS: SYMBICORT 160-4.5 MCG INHALER INHALATION SCH ×2 (09:35→19:30)
[2018-11-08] MEDS ORDERED: PROPOFOL 10 MG/ML 20 ML VIAL IV ONE (09:48)
[2018-11-08] MEDS ORDERED: IV FLUID CONTINUATION 1,000 ML IV ONE (10:01)
[2018-11-08] MEDS ORDERED: SODIUM CHLORIDE 0.9% 500 ML 500 ML IV ONE (10:14)
--- NOTE | 2018-11-08 10:36 | P.PCN ---
Date of Procedure: 11/08/18 Procedure(s) Performed: Procedure: Esophagogastroduodenoscopy and biopsy. Preoperative diagnosis: Dark stools and dropping hemoglobin consistent with GI bleeding. Postoperative diagnosis: 1. Zenker's diverticulum. 2. Alicia esophagitis. 3. No ulcers or active bleeding. Preparation and sedation: Was provided by anesthesia. Brief clinical history: The patient is an 88-year-old male with medical history significant for asthma, hearing disorder/gastritis, Ayaka impairment who presented to the hospital due to decrease in his hemoglobin and symptoms of dark stool. Reports from nursing staff and on review of the electronic medical record are of the patient having dark-colored stool over the recent past. No reports of abdominal pain, nausea or vomiting, or gross red blood per rectum. The patient has had no further bowel movements. On presentation to the hospital hemoglobin was found to be 7.3 which subsequently trended to 7.7. Stool testing was positive for occult blood. X-ray of the abdomen was significant for a nonspecific bowel gas pattern. The details as summarized in the history and physical and dictated consultations and progress notes. Procedure: With the patient on his left lateral decubitus position and after informed consent and adequate sedation, I initially attempted to pass the Olympus-GIF Q190 video upper endoscope through the cricopharyngeus, however, there was a moderately sized Zenker's diverticulum that made it hard to intubate the esophagus safely. I was then able to pass the GIF H190 video upper endoscope through the cricopharyngeus down the esophagus. GE junction was around 43 cm from the incisors and there was a small sliding hiatal hernia. The esophagus was carpeted with sticky whitish exudates consistent with Alicia esophagitis. There were no mucosal tears, varices, ulcers or bleeding. The endoscope was then passed into the stomach which was insufflated with air and inspected in detail including the retroflex view in the cardia. Finally, the endoscope was passed through the pylorus into the duodenum. The stomach, pyloric channel, duodenal bulb, post bulbar area and descending duodenum appeared within normal limits without any ulcers or bleeding. I obtained biopsies from the esophagus then the endoscope was withdrawn. The patient tolerated the procedure well. Plan: I discussed the findings with the patient's family. Will initiate Diflucan treatment. Further plans based on his course.
[2018-11-08] MEDS: amLODIPine 5 MG TAB PO SCH (10:55)
[2018-11-08] MEDS: FLUCONAZOLE 100 MG TAB PO SCH (10:55)
[2018-11-08] MEDS: predniSONE 50 MG TAB PO SCH (10:56)
[2018-11-08] MEDS: HYDROcodone/APAP 7.5-325MG 1 EACH TAB PO PRN (11:43)
--- NOTE | 2018-11-08 12:43 | P.PN ---
Subjective Progress Note Date: 11/08/18 Principal diagnosis: GI bleed 88-year-old male new to our practice underwent EGD this morning, patient is a poor historian, appears pleasantly demented no complaints of pain at this time Objective - Vital Signs Vital signs: Vital Signs Temp 96.9 F L 11/08/18 07:55 Pulse 78 11/08/18 11:30 Resp 18 11/08/18 11:30 BP 120/59 11/08/18 11:30 Pulse Ox 92 L 11/08/18 07:55 Intake & Output 11/07/18 11/08/18 11/08/18 18:59 06:59 18:59 Intake Total 600 150 Output Total 1100 325 10 Balance -500 -325 140 Weight 77.5 kg Intake: IV 150 Oral 600 Output: Urine 1100 325 10 Other: Voiding Method Urinal Urinal Diaper Diaper Incontinent # Voids 1 1 1 - Exam General: [Patient awake, alert and oriented to person. Patient in no acute distress.] HEENT: [PERRL. EOMI. No pharyngeal erythema or exudate.] Neck: [No adenopathy.] Cardiac: [Heart regular in rate and rhythm. No S3. No S4. No clicks, rubs. No murmur.] Lungs: [Clear to auscultation bilaterally.] Abdomen: [No mass. No organomegaly. Bowel sounds presnt and normoactive in all 4 quadrants.] Extremes: [No edema no cyanosis no claudication normal pulses] : [] Musculoskeletal: [No joint erythema, edema or tenderness.] Skin: [No rash.] Neurologic: [No lateralizing deficits. CN II - XII grossly intact.] Lymphatic: [No adenopathy.] - Labs CBC & Chem 7: 11/07/18 05:57 11/07/18 05:57 Labs: Microbiology - Last 24 Hours (Table) 11/06/18 13:47 Urine Culture - Final Urine,Voided Assessment and Plan (1) Anemia Current Visit: Yes Status: Acute Code(s): D64.9 - ANEMIA, UNSPECIFIED SNOMED Code(s): 936063798 (2) Dehydration Current Visit: Yes Status: Acute Code(s): E86.0 - DEHYDRATION SNOMED Code(s): 18943208 (3) Melena Current Visit: Yes Status: Acute Code(s): K92.1 - MELENA SNOMED Code(s): 5527011 (4) Low back pain Current Visit: No Status: Acute Code(s): M54.5 - LOW BACK PAIN SNOMED Code(s): 175827690 Plan: Patient underwent EGD with Dr. Contreras Continue clear liquid diet and advance as tolerated Continue Protonix therapy Patient appears to have been transfused H&H pending We'll follow closely Time with Patient: Greater than 30
[2018-11-08] MEDS: SODIUM CHLORIDE 0.9% 500 ML 500 ML IV SCH (14:12)
[2018-11-08 14:15] LABS: Anisocytosis Slight; Basophils % (A) 0 %; Eosinophils # (A) 0.1 k/uL (0-0.7); Eosinophils % (A) 1 %; HCT 24.7 % (39.0-53.0); HGB 8.2 gm/dL (13.0-17.5); Hypochromasia Slight; Lymphocytes # (A) 0.3 k/uL (1.0-4.8); Lymphocytes % (A) 3 %; MCH 30.8 pg (25.0-35.0); MCHC 33.1 g/dL (31.0-37.0); Mean Platelet Volume 9.8; Monocytes # (A) 0.5 k/uL (0-1.0); Monocytes % (A) 4 %; Neutrophils # (A) 11.6 k/uL (1.3-7.7); Neutrophils % (A) 93 %; Platelet Count 138 k/uL (150-450); RBC 2.66 m/uL (4.30-5.90); RDW 17.5 % (11.5-15.5); WBC 12.5 k/uL (3.8-10.6)
[2018-11-08 14:36] LABS: ALT 38 U/L (21-72); AST 22 U/L (17-59); Albumin 2.3 g/dL (3.5-5.0); Alkaline Phosphatase 65 U/L (38-126); Anion Gap 4 mmol/L; Blood Urea Nitrogen 33 mg/dL (9-20); Calcium 7.9 mg/dL (8.4-10.2); Carbon Dioxide 27 mmol/L (22-30); Chloride 104 mmol/L (98-107); Glucose 80 mg/dL (74-99); Potassium 4.2 mmol/L (3.5-5.1); Sodium 135 mmol/L (137-145); Total Bilirubin 1.1 mg/dL (0.2-1.3); Total Protein 4.1 g/dL (6.3-8.2)
[2018-11-08] MEDS: MONTELUKAST 10 MG TAB PO SCH (21:31)
[2018-11-09] MEDS: HYDROcodone/APAP 7.5-325MG 1 EACH TAB PO PRN ×3 (01:35→21:42)
[2018-11-09] MEDS: HYDROmorphone 0.5 MG/0.5 ML SYRINGE IVP PRN ×5 (04:47→21:43)
[2018-11-09] MEDS: SYMBICORT 160-4.5 MCG INHALER INHALATION SCH ×2 (09:05→19:41)
[2018-11-09] MEDS: amLODIPine 5 MG TAB PO SCH (09:32)
[2018-11-09] MEDS: predniSONE 50 MG TAB PO SCH (09:32)
[2018-11-09] MEDS: PANTOPRAZOLE 40 MG/10 ML VIAL IV SCH ×2 (09:33→21:42)
[2018-11-09] MEDS: FLUCONAZOLE 100 MG TAB PO SCH (13:37)
[2018-11-09] MEDS: SODIUM CHLORIDE 0.9% 500 ML 500 ML IV SCH (13:44)
[2018-11-09] MEDS: MONTELUKAST 10 MG TAB PO SCH (21:42)
[2018-11-10] MEDS: HYDROmorphone 0.5 MG/0.5 ML SYRINGE IVP PRN ×6 (01:13→18:51)
[2018-11-10] MEDS: HYDROcodone/APAP 7.5-325MG 1 EACH TAB PO PRN ×4 (04:24→20:55)
[2018-11-10] MEDS: SYMBICORT 160-4.5 MCG INHALER INHALATION SCH ×2 (07:59→19:02)
[2018-11-10] MEDS: PANTOPRAZOLE 40 MG/10 ML VIAL IV SCH ×2 (08:24→20:55)
[2018-11-10] MEDS: predniSONE 50 MG TAB PO SCH (08:25)
[2018-11-10] MEDS: amLODIPine 5 MG TAB PO SCH (08:25)
[2018-11-10] MEDS: FLUCONAZOLE 100 MG TAB PO SCH (08:47)
--- NOTE | 2018-11-10 09:53 | P.PN ---
Subjective Progress Note Date: 11/10/18 11/10/2018: Patient is very confused. Staff are cleaning him with a sponge bath. He is shouting that is in pain. He has his eyes closed while is doing this. He has profound deafness so it's difficult to ascertain any symptomatology. I have seen this patient one time at [facility]. He ordinarily sees Dr. Nasrin Pitts, pulmonology. This is been his primary care physician for quite some time. Shahriar was admitted to the hospital several weeks ago for worsening low back pain. He was seen by staff and then sent to [facility]. He lives alone and was unable to care for himself to his pain. Standard labs were done as well as at the [facility] and was found to have hemoglobin drop. A repeat CBC showed a further drop down to the high sixes. He said the emergency room and evaluated. He since undergone consultation with Dr. Clifton. An EKG has performed showing Zenker's diverticulum, Alicia esophagitis but no ulcers or active bleeding that time. While here currently is on [place] and/or Dilaudid for pain. Hemoglobin today is 8.2. This is up from 7.3 at admission. His hemoglobin at [facility] was 6.6, prompting his visit to emergency room and admission. He has profound deafness and dementia, is unable to tolerate anything other than pain. He is unable to localize pain today. Objective - Vital Signs Vital signs: Vital Signs Temp 98.8 F 11/10/18 05:00 Pulse 76 11/10/18 05:00 Resp 18 11/10/18 05:00 BP 99/56 11/10/18 05:00 Pulse Ox 95 11/10/18 05:00 Intake & Output 11/09/18 11/10/18 11/10/18 18:59 06:59 18:59 Intake Total 240 400 Output Total 260 500 Balance -20 -100 Intake: Intake, IV Titration 160 Amount Sodium Chloride 0.9% 500 160 ml 500 ml @ 20 mls/hr IV .Q24H [facility] Rx#:[id number] Oral 240 240 Output: Urine 260 500 Other: Voiding Method Urinal Urinal Urinal Diaper Diaper # Voids 4 1 - Exam General: The patient is awake, confused, recurrently yelling "help me" while staff for bathing him. There is no lumbosacral palpable pain. No skin breakdown noted. Neck: The neck is supple, there is no thyromegaly, lymphadenopathy, tenderness or JVD. Cardiovascular: S1S2 is normal, There is a regular rate and rhythm. No murmur, rub or gallop is appreciated. Respiratory: Lungs are clear to auscultation bilaterally, respirations are non-labored, breath sounds are equal. Gastrointestinal: Soft, non-distended, non-tender abdomen without masses or organomegaly noted. There is no rebound or guarding present. Bowel sounds are unremarkable. Musculoskeletal: Normal ROM, no tenderness, There is no pedal edema. There is no calf tenderness or swelling. No cords were appreciated. Neurological: CN II-XII intact, there are no obvious motor or sensory deficits. Coordination appears grossly intact. Speech is normal. He has his eyes closed and is frequently yelling out. Skin: Skin is warm and dry and no rashes or lesions are noted. There is no evidence of skin breakdown to his back, buttocks, or heels - Labs CBC & Chem 7: 11/08/18 13:53 11/08/18 13:53 Assessment and Plan (1) Hip osteoarthritis Current Visit: Yes Status: Acute Code(s): M16.9 - OSTEOARTHRITIS OF HIP, UNSPECIFIED SNOMED Code(s): 231444054 (2) Dementia Current Visit: Yes Status: Acute Code(s): F03.90 - UNSPECIFIED DEMENTIA WITHOUT BEHAVIORAL DISTURBANCE SNOMED Code(s): 74870655 (3) Acute delirium Current Visit: Yes Status: Acute Code(s): R41.0 - DISORIENTATION, UNSPEC IFIED SNOMED Code(s): 3178123 (4) Upper GI bleed Current Visit: Yes Status: Acute Code(s): K92.2 - GASTROINTESTINAL HEMORRHAGE, UNSPECIFIED SNOMED Code(s): 01624718 (5) Degenerative disc disease at L5-S1 level Current Visit: No Status: Acute Code(s): M51.36 - OTHER INTERVERTEBRAL DISC DEGENERATION, LUMBAR REGION SNOMED Code(s): 69692849 (6) History of recent fall Current Visit: No Status: Acute Code(s): Z91.81 - HISTORY OF FALLING SNOMED Code(s): 442009554 (7) Spondylolisthesis at L5-S1 level Current Visit: No Status: Acute Code(s): M43.17 - SPONDYLOLISTHESIS, LUMBOSACRAL REGION SNOMED Code(s): 289965893 (8) Asthma Current Visit: Yes Status: Acute Code(s): J45.909 - UNSPECIFIED ASTHMA, UNCOMPLICATED SNOMED Code(s): 887800797 (9) Deaf Current Visit: Yes Status: Acute Code(s): H91.90 - UNSPECIFIED HEARING LOSS, UNSPECIFIED EAR SNOMED Code(s): 17938916 Plan: We'll have physical therapy to continue to evaluate him and attempted to help with his pain. We'll plan on him returning to the facility. We'll start him on an antipsychotic to help with his delirium at this time. Forcefully, height spoken with him, though he is profoundly deaf, he was able to relay what it transpired regarding his fall and pain. Unfortunately, he is not a surgical candidate. He may be a candidate for interventional radiology and/or pain management, once his dementia is improved. I'll explore this in the f uture. He'll continue on his current medications as ordered. he will Be reevaluated next 24 hours. Kike to his son-in-law and discuss his case with him.
[2018-11-10] MEDS: ARIPiprazole 2 MG TAB PO SCH (11:51)
[2018-11-10] MEDS: SODIUM CHLORIDE 0.9% 500 ML 500 ML IV SCH (17:50)
[2018-11-10] MEDS: MONTELUKAST 10 MG TAB PO SCH (20:55)
--- NOTE | 2018-11-10 21:56 | P.PN ---
Subjective Progress Note Date: 11/10/18 Principal diagnosis: Anemia acute blood loss, melena Patient seen lying in bed. No acute complaints. Tolerating his diet. Objective - Vital Signs Vital signs: Vital Signs Temp 98.1 F 11/10/18 11:28 Pulse 97 11/10/18 11:28 Resp 16 11/10/18 20:58 BP 99/56 11/10/18 05:00 Pulse Ox 93 L 11/10/18 11:28 Intake & Output 11/10/18 11/10/18 11/11/18 06:59 18:59 06:59 Intake Total 400 760 180 Output Total 500 850 500 Balance -100 -90 -320 Intake: Intake, IV Titration 160 160 80 Amount Sodium Chloride 0.9% 500 160 160 80 ml 500 ml @ 20 mls/hr IV .Q24H [facility] Rx#:[id number] Oral 240 600 100 Output: Urine 500 850 500 Uretheral ([place]) 850 Other: Voiding Method Urinal Indwelling Catheter Indwelling Catheter Diaper # Voids 1 1 1 - Exam On physical examination, patient appears comfortable in no apparent distress. HEAD: Normocephalic, atraumatic. EYES: No scleral icterus. No conjunctival injection. MOUTH: No lesions, tongue midline. NECK: Trachea midline, no gross abnormalities. CHEST: Decreased air entry in all lung pillai. HEART: S1-S2 appreciated. ABDOMEN: Soft, no tenderness to palpation. Bowel sounds are positive. No organomegaly. No guarding or rigidity. EXTREMITIES: No pedal edema. SKIN: No rashes, no jaundice. NEUROLOGIC: Alert and extremely hard of hearing. - Labs CBC & Chem 7: 11/08/18 13:53 11/08/18 13:53 Assessment and Plan Assessment: 1. Anemia of acute blood loss, patient presenting with complaints of melanotic stool found to have a hemoglobin of 7.7 stable from 7.6. Stool positive for occult blood. EGD performed with findings of Alicia esophagitis, Zenker diverticulum with no active bleeding or old blood noted. 2. Melena, no further episodes. 3. Alicia esophagitis. 4. Zenker's diverticulum Plan: Supportive care Okay for diet Upper endoscopy report reviewed Protonix changed to by mouth daily Continue Diflucan for treatment of esophagitis due to alicia Continue to monitor for signs or symptoms GI bleeding Continue to monitor hemoglobin and hematocrit and transfuse as needed Thank you for allowing us to participate in the care of the patient, the GI service will stand by, please call us back with any questions or concerns
--- NOTE | 2018-11-10 22:40 | P.PAINCN ---
History of Present Illness - Reason for Consult Consult date: 11/10/18 Low back pain and hip pain - Chief Complaint Low back pain and hip pain - History of Present Illness 88-year-old male who presents to the hospital from a nursing care facility secondary to GI bleed. She has a history of lumbar stenosis. Review was maps shows prescriptions for [place] 7.5/325 mg, Tylenol 3 with codeine, Ambien, Xanax. Upon questioning patient appears to have moderate to severe dementia is not aware of place or time. He does not complain of any pain in his back or left hip at the moment. He's been given [place] 7.5 mg as needed his last dose was this evening as well as Dilaudid 0.5 mg IV which was given this evening as well. I'm unable to ascertain an appropriate history from the patient secondary to his dementia and likely sundowners. He is able to say definitively that he is not in any pain at the moment but when asked where his pain is normally he cannot consistently report one area. His current orders are for Dilaudid 0.5 mg every 3 hours when necessary as well as [place] 7.5 mg every 4 hours when necessary. He responds well to the [place] tablets per his nurse, and did not respond his Dilaudid IV this evening. Review of Systems 14 point review of system is negative except as mentioned in HPI. Past Medical History Past Medical History: Asthma, Dementia, Hearing Disorder / Deafness, Memory Impairment Additional Past Medical History / Comment(s): Some short term memory problems, [place] bilaterally. History of Any Multi-Drug Resistant Organisms: None Reported Past Surgical History: Appendectomy Additional Past Surgical History / Comment(s): Low back injection, colonoscopies, nasal polyps removed. Past Anesthesia/Blood Transfusion Reactions: No Reported Reaction Past Psychological History: No Psychological Hx Reported Additional Psychological History / Comment(s): Pt resides with his son-in-law. He ambulates with a walker. He no longer drives. His son in law plans to take over managing pt's medications and he drives pt to his appts. Smoking Status: Never smoker Past Alcohol Use History: None Reported Past Drug Use History: None Reported - Past Family History Father Additional Family Medical History / Comment(s): Father of heart problems at the ageof 45yrs. Mother Family Medical History: No Reported History Medications and Allergies Home Medications Medication Instructions Recorded Confirmed Type Albuterol Sulfate [Proair Hfa] 2 puff INHALATION RT-QID PRN 10/21/18 11/06/18 History Mometasone/Formoterol [Dulera 200 2 puff INHALATION RT-BID 10/21/18 11/06/18 History Mcg/5 Mcg Inhaler] Montelukast Sodium [Singulair] 10 mg PO HS 10/21/18 11/06/18 History Famotidine [Pepcid] 20 mg PO BID tab 10/23/18 11/06/18 Rx amLODIPine [Norvasc] 5 mg PO DAILY tab 10/23/18 11/06/18 Rx HYDROcodone/APAP 7.5-325MG [[place] 1 tab PO Q4H PRN 11/06/18 11/06/18 History 7.5-325] Zolpidem [Ambien] 5 mg PO HS PRN 11/06/18 11/06/18 History predniSONE 50 mg PO DAILY 11/06/18 11/06/18 History Allergies Allergy/AdvReac Type Severity Reaction Status Date / Time aspirin Allergy Unknown Verified 11/06/18 12:37 Physical Exam Vitals: Vital Signs Temp Pulse Pulse Resp BP Pulse Ox 11/10/18 20:58 16 11/10/18 11:28 98.1 F 97 16 93 L 11/10/18 05:00 98.8 F 76 18 99/56 95 11/10/18 00:00 70 18 Intake and Output 11/10/18 11/10/18 11/10/18 06:59 14:59 22:59 Intake Total 240 760 180 Output Total 500 1350 Balance -260 760 -1170 Intake: Intake, IV Titration 160 80 Amount Sodium Chloride 0.9% 500 160 80 ml 500 ml @ 20 mls/hr IV .Q24H [facility] Rx#:[id number] Oral 240 600 100 Output: Urine 500 1350 Uretheral ([place]) 850 Other: Voiding Method Urinal Urinal Indwelling Catheter Diaper Diaper # Voids 1 1 Gen.: Patient is alert and oriented to person but not to place and time. HEENT: NCAT, EOMI, hearing significantly diminished Pulm: Nonlabored, no expiratory wheezing. Abd: soft, NT, ND Neck: supple, trachea midline Muscle skeletal: Unable to do a thorough examination secondary to lack of patient participation. He is moving his limbs with ease, coordination seems to be intact, no gross motor deficits appreciated. Exam of lumbar spine is difficult secondary to lack of patient compliance. Results CBC & Chem 7: 11/08/18 13:53 11/08/18 13:53 Assessment and Plan Plan: Assessment: This is a 88-year-old male with a history of lumbar spinal stenosis and moderate to severe dementia. 1. Moderate lumbar spinal stenosis 2. Lumbar spondylosis 3. Degenerative disc disease 4. Alzheimer's disease 5. Opioid dependence Plan: 1. Medication: Patient seems to responding well to oral medication was decreas ed in frequency of IV Dilaudid in order to avoid the combination of oral and IV medication. frequency will be changed to every 3 hours as needed with IV Dilaudid 0.5 mg every 12 hours when necessary. Do not give oral and IV medication within 2 hours of each other. 2. Investigation: Maps are reviewed and showed multiple prescriptions for opiates including Tylenol 3 as well as [place]. Also benzodiazepines and Ambien. Avoid a combination of benzodiazepines, Ambien and opiates. 3. Interventions: Given patient's cognitive dysfunction sending him for epidural steroid injection as an inpatient or even as an outpatient could be challenging. Difficult to do physical examination identified the degree of neurogenic claudication 4. Disposition: Once underlying reason for admission as a result or improved be appropriate to send patient home on [place] 7.5/325 mg 3 times a day when necessary with 40-50 tablets dispensed. Highly recommend avoiding the combination of benzodiazepines, Ambien, and opiates. Can increase the risk of . PQRS Measure Charge Sheet PQRS Narrative: Smoking Status Never smoker Blood Pressure [Right Arm] 99/56 Blood Pressure 140/70 Pain Intensity [Lower Back] 8 Pain Intensity [Left Hip] 8 Pain Intensity [Right] 0 Pain Intensity 5 Pain Scale Used Numeric (1 - 10) Scale Used Non Verbal Pain Indicator Home Medications: Ambulatory Orders Albuterol Sulfate [Proair Hfa] 2 puff INHALATION RT-QID PRN 10/21/18 Mometasone/Formoterol [Dulera 200 Mcg/5 Mcg Inhaler] 2 puff INHALATION RT-BID 0 10/21/18 Montelukast Sodium [Singulair] 10 mg PO HS 10/21/18 Famotidine [Pepcid] 20 mg PO BID tab 10/23/18 amLODIPine [Norvasc] 5 mg PO DAILY tab 10/23/18 HYDROcodone/APAP 7.5-325MG [[place] 7.5-325] 1 tab PO Q4H PRN 11/06/18 Zolpidem [Ambien] 5 mg PO HS PRN 11/06/18 predniSONE 50 mg PO DAILY 11/06/18
[2018-11-10] MEDS ORDERED: HYDROmorphone 0.5 MG/0.5 ML SYRINGE IM PRN (23:40)
[2018-11-10] MEDS ORDERED: NALOXONE 0.4 MG/ML 1 ML VIAL IV PRN (23:44)
[2018-11-11] MEDS ORDERED: PANTOPRAZOLE 40 MG TABLET PO SCH (07:30)
[2018-11-11] MEDS: FLUCONAZOLE 100 MG TAB PO SCH (08:24)
[2018-11-11] MEDS: HYDROcodone/APAP 7.5-325MG 1 EACH TAB PO PRN ×3 (08:24→16:10)
[2018-11-11] MEDS: ARIPiprazole 2 MG TAB PO SCH (08:25)
[2018-11-11] MEDS: amLODIPine 5 MG TAB PO SCH (08:25)
[2018-11-11] MEDS: predniSONE 50 MG TAB PO SCH (08:25)
[2018-11-11] MEDS: SYMBICORT 160-4.5 MCG INHALER INHALATION SCH (08:47)
[2018-11-11 11:56] VITALS: BP 128/58; PULSE 93; RESP 16; TEMP 98.1
--- NOTE | 2018-11-11 12:23 | P.DS ---
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 Staff are cleaning him with a sponge bath. He is shouting that is in pain. He has his eyes closed while is doing this. He has profound deafness so it's difficult to ascertain any symptomatology. I have seen this patient one time at [facility]. He ordinarily sees Dr. Nasrin Pitts, pulmonology. This is been his primary care physician for quite some time. Shahriar was admitted to the hospital several weeks ago for worsening low back pain. He was seen by staff and then sent to [facility]. He lives alone and was unable to care for himself to his pain. Standard labs were done as well as at the [facility] and was found to have hemoglobin drop. A repeat CBC showed a further drop down to the high sixes. He said the emergency room and evaluated. He since undergone consultation with Dr. Clifton. An EKG has performed showing Zenker's diverticulum, Alicia esophagitis but no ulcers or active bleeding that time. While here currently is on Dixon and/or Dilaudid for pain. Hemoglobin today is 8.2. This is up from 7.3 at admission. His hemoglobin at [facility] was 6.6, prompting his visit to emergency room and admission. He has profound deafness and dementia, is unable to tolerate anything other than pain. He is unable to localize pain today. 11/11/2018: Patient is doing well today. He is much less confused. His son was at bedside. They requested returning to a different facility other than [facility]. His pain is somewhat better. Pain management did see him but he was very confused at their visit. We'll plan further outpatient evaluations. He will be discharged with the Maurisio with a plan to discontinue this in 2 days Patient Condition at Discharge: Fair Plan - Discharge Summary Discharge Rx Participant: Yes New Discharge Prescriptions: New ARIPiprazole [Abilify] 1 mg PO DAILY tab Fluconazole [Diflucan] 100 mg PO DAILY #0 tab HYDROcodone/APAP 7.5-325MG [Dixon 7.5-325] 1 each PO Q6HR PRN tab PRN Reason: Pain predniSONE See Taper PO DIRECTED #90 tab Continue Montelukast Sodium [Singulair] 10 mg PO HS Mometasone/Formoterol [Dulera 200 Mcg/5 Mcg Inhaler] 2 puff INHALATION RT-BID Albuterol Sulfate [Proair Hfa] 2 puff INHALATION RT-QID PRN PRN Reason: Shortness Of Breath amLODIPine [Norvasc] 5 mg PO DAILY tab Famotidine [Pepcid] 20 mg PO BID tab Discontinued HYDROcodone/APAP 7.5-325MG [Dixon 7.5-325] 1 tab PO Q4H PRN PRN Reason: Pain predniSONE 50 mg PO DAILY Zolpidem [Ambien] 5 mg PO HS PRN PRN Reason: Insomnia Discharge Medication List Albuterol Sulfate [Proair Hfa] 2 puff INHALATION RT-QID PRN 10/21/18 [History] Mometasone/Formoterol [Dulera 200 Mcg/5 Mcg Inhaler] 2 puff INHALATION RT-BID 10/21/18 [History] Montelukast Sodium [Singulair] 10 mg PO HS 10/21/18 [History] Famotidine [Pepcid] 20 mg PO BID tab 10/23/18 [Rx] amLODIPine [Norvasc] 5 mg PO DAILY tab 10/23/18 [Rx] ARIPiprazole [Abilify] 1 mg PO DAILY tab 11/11/18 [Rx] Fluconazole [Diflucan] 100 mg PO DAILY #0 tab 11/11/18 [Rx] HYDROcodone/APAP 7.5-325MG [Dixon 7.5-325] 1 each PO Q6HR PRN tab 11/11/18 [Rx] predniSONE See Taper PO DIRECTED #90 tab 11/11/18 [Rx] Follow up Appointment(s)/Referral(s): Aguilar Kumar MD [Primary Care Provider] - 1-2 days Activity/Diet/Wound Care/Special Instructions: Patient from rehab ([facility]-will not return, possible [place]) Care Plan Goals (MU): Forde catheter to gravity until for 11/13/2018 at 6 AM and bladder scan the patient for post void residuals Discharge Disposition: TRANSFER TO SNF/ECF
== END 2018-11-11 16:30 | DRG 378 ==
LOC: EC 11:36 → 3SCARD 16:31 → 3NMEDONC 11-08 17:10
PROVIDERS: ADMIT Family Medicine; ATTEND Family Medicine
PROC: 30230N1 Transfusion of Nonautologous Red Blood Cells into Peripheral Vein, Open Approach (ICD-10-PCS; principal; 2018-11-06)
PROC: 0DB58ZX Excision of Esophagus, Via Natural or Artificial Opening Endoscopic, Diagnostic (ICD-10-PCS; 2018-11-08)
DX: K92.2 Gastrointestinal hemorrhage, unspecified (principal); D62 Acute posthemorrhagic anemia; B37.81 Candidal esophagitis; F05 Delirium due to known physiological condition; E86.0 Dehydration; G30.9 Alzheimer's disease, unspecified; F02.80 Dementia in other diseases classified elsewhere, unspecified severity, without behavioral disturbance, psychotic disturbance, mood disturbance, and anxiety; K22.5 Diverticulum of esophagus, acquired; M16.10 Unilateral primary osteoarthritis, unspecified hip; M48.061 Spinal stenosis, lumbar region without neurogenic claudication; M51.17 Intervertebral disc disorders with radiculopathy, lumbosacral region; M43.17 Spondylolisthesis, lumbosacral region; K44.9 Diaphragmatic hernia without obstruction or gangrene; J45.909 Unspecified asthma, uncomplicated; H91.90 Unspecified hearing loss, unspecified ear; Z79.51 Long term (current) use of inhaled steroids; Z79.899 Other long term (current) drug therapy; Z91.81 History of falling; Z87.19 Personal history of other diseases of the digestive system; Z90.49 Acquired absence of other specified parts of digestive tract; Z88.8 Allergy status to other drugs, medicaments and biological substances; Z82.49 Family history of ischemic heart disease and other diseases of the circulatory system
CPT/HCPCS: 36415; 43239; 72131; 72192; 74022; 80048; 80053; 81001; 82272; 82550; 83735; 84484; 85025; 85610; 85730; 86850; 86900; 86901; 86920; 87086; 88305; 93005; 94640; 96361; 96374; 96375; 99285

== ENCOUNTER 2018-11-19 04:55 | Inpatient (IN) | payer MEDICARE ==
--- NOTE | 2018-11-19 05:42 | XR ---
EXAM: XR Chest, 1 View CLINICAL HISTORY: chest pain TECHNIQUE: Frontal view of the chest. COMPARISON: 10/23/18 FINDINGS: Lungs: Small to moderate amount of bibasilar airspace opacities, more on the right. Centrilobular pulmonary emphysema Pleural space: Small to moderate bilateral pleural effusions, more on the right. No pneumothorax. Heart: Unremarkable. No cardiomegaly. Mediastinum: Unremarkable. Bones/joints: Osteopenia. Vasculature: Aorta is moderate calcified. IMPRESSION: 1. Small to moderate amount of bibasilar airspace opacities, more on the right, suggest pneumonia and/or atelectasis versus aspiration. 2. Small to moderate bilateral pleural effusions, more on the right.
[2018-11-19 05:58] LABS: Albumin 2.1 g/dL (3.5-5.0); Calcium 7.5 mg/dL (8.4-10.2); Magnesium 1.8 mg/dL (1.6-2.3); Total Bilirubin 1.3 mg/dL (0.2-1.3); Total Protein 4.4 g/dL (6.3-8.2)
[2018-11-19 06:01] LABS: Potassium 5.4 mmol/L (3.5-5.1)
[2018-11-19 06:04] LABS: INR 1.1 (<1.2); Partial Thromboplastin Time 29.2 sec (22.0-30.0); Prothrombin Time 11.4 sec (9.0-12.0)
[2018-11-19 06:28] LABS: Basophils % (A) 0 %; Eosinophils % (A) 0 %; HCT 25.7 % (39.0-53.0); HGB 8.1 gm/dL (13.0-17.5); Hypochromasia Moderate; Lymphocytes # (A) 0.8 k/uL (1.0-4.8); Lymphocytes % (A) 31 %; MCH 30.1 pg (25.0-35.0); MCHC 31.7 g/dL (31.0-37.0); Mean Platelet Volume 8.6; Monocytes # (A) 0.1 k/uL (0-1.0); Monocytes % (A) 3 %; Neutrophils # (A) 1.7 k/uL (1.3-7.7); Neutrophils % (A) 64 %; Platelet Count 121 k/uL (150-450); Poikilocytosis Slight; RDW 14.8 % (11.5-15.5); WBC 2.6 k/uL (3.8-10.6)
[2018-11-19 06:30] LABS: Amorphous Sediment,Urine Occasional /hpf; Appearance,Urine Cloudy (Clear); Bacteria,Urine Rare /hpf; Bilirubin,Urine Negative (Negative); Blood,Urine Moderate (Negative); Color,Urine Yellow; Glucose,Urine (UA) Negative (Negative); Ketones,Urine Negative (Negative); Leukocyte Esterase,Urine Small (Negative); Mucus,Urine Rare /hpf; Nitrite,Urine Negative (Negative); PH, Urine 5.5 (5.0-8.0); Protein,Urine 2+ (Negative); RBC,Urine 5 /hpf (0-5); Specific Gravity,Urine 1.025 (1.001-1.035); Squamous Epithelial Cell,Urine 4 /hpf (0-4); Urobilinogen,Urine <2.0 mg/dL (<2.0)
[2018-11-19 07:08] LABS: VBG PH 7.46 (7.31-7.41)
--- NOTE | 2018-11-19 07:11 | CT ---
EXAM: CT Abdomen and Pelvis Without Intravenous Contrast CLINICAL HISTORY: pain, previous CT pelvis on synapse, patient poor historian, TECHNIQUE: Axial computed tomography images of the abdomen and pelvis without intravenous contrast. DLP is 622.4 mGy-cm. This CT exam was performed using one or more of the following dose reduction techniques: automated exposure control, adjustment of the mA and/or kV according to patient size, and/or use of iterative reconstruction technique. Coronal and sagittal reconstructions are performed COMPARISON: No relevant prior studies available. FINDINGS: Artifacts: Scattering and motion artifacts decrease the sensitivity of this exam. Lung bases: See below. Pleural space: Moderate bilateral pleural effusions. Moderate consolidation in bilateral lower lobes with air bronchogram suggest atelectasis and/or pneumonia versus aspiration. Heart: Moderate cardiomegaly with a trace of pericardial effusion. ABDOMEN: Liver: Unremarkable. Gallbladder and bile ducts: Unremarkable. No calcified stones. No ductal dilation. Pancreas: Unremarkable. No ductal dilation. Spleen: Unremarkable. No splenomegaly. Adrenals: Unremarkable. No mass. Kidneys and ureters: Unremarkable. No obstructing stones. No hydronephrosis. Stomach and bowel: Unremarkable. No obstruction. No mucosal thickening. PELVIS: Appendix: Appendix is not definitively visualized. No pericecal inflammatory change. Bladder: Unremarkable. No stones. Reproductive: Unremarkable as visualized. ABDOMEN and PELVIS: Intraperitoneal space: Unremarkable. No free air. No significant fluid collection. Bones/joints: Bilateral sacral insufficiency fractures. Osteopenia. Moderate degenerative changes in the visualized osseous structures. Old bilateral pars defect of L5 No dislocation. Soft tissues: Mild anasarca. Vasculature: Moderate amount of atherosclerotic calcifications. No abdominal aortic aneurysm. Lymph nodes: Unremarkable. No enlarged lymph nodes. IMPRESSION: 1. Moderate bilateral pleural effusions. Moderate consolidation in bilateral lower lobes with air bronchogram suggest atelectasis and/or pneumonia versus aspiration. 2. Mild anasarca. 3. Moderate cardiomegaly with a trace of pericardial effusion. 4. Bilateral sacral insufficiency fractures, nondisplaced, age indeterminate, probably acute, with evidence of healing on the right.
[2018-11-19] MEDS ORDERED: PIPERACILLIN-TAZOBACTAM 3.375 GM in SODIUM CHLORIDE 0.9% 100 ML IVPB STA (08:13)
[2018-11-19] MEDS ORDERED: PNEUMONIA PROTOCOL UTILIZED 1 EACH MISC PO PRN (08:13)
[2018-11-19] MEDS ORDERED: MAGNESIUM HYDROXIDE 2,400 MG/10 ML CUP PO PRN (08:18)
[2018-11-19] MEDS ORDERED: NA PHOS,M-B/NA PHOS,DI-BA 133 ML ENEMA RECTAL PRN (08:18)
[2018-11-19] MEDS ORDERED: ALBUTEROL NEBULIZED 2.5 MG/3 ML INHALATION PRN (08:18)
--- NOTE | 2018-11-19 08:25 | ED ---
Fever HPI - General Chief Complaint: Fever Stated Complaint: Septic UTI CHF Time Seen by Provider: 11/19/18 05:10 Source: EMS Mode of arrival: EMS Limitations: altered mental status - History of Present Illness Initial Comments: This patient is an 88-year-old man sent from alf reportedly for fever and also for moaning in pain. He is reported to have urinary tract infection that is being treated at the alf. The patient's Forde catheter was recently discontinued due to having the infection. The patient is not able to provide any additional history due to advanced dementia. MD Complaint: fever, other -: days(s) Treatments Prior to Arrival: antibiotics - Related Data Home Medications Medication Instructions Recorded Confirmed Albuterol Sulfate [Proair Hfa] 2 puff INHALATION RT-QID PRN 10/21/18 11/19/18 Mometasone/Formoterol [Dulera 200 2 puff INHALATION RT-BID@0800,1700 10/21/18 11/19/18 Mcg/5 Mcg Inhaler] Montelukast Sodium [Singulair] 10 mg PO HS 10/21/18 11/19/18 Acetaminophen [Tylenol 8 Hour] 650 mg PO Q4H PRN 11/19/18 11/19/18 Bisacodyl [Dulcolax] 10 mg RECTAL DAILY PRN 11/19/18 11/19/18 Famotidine [Pepcid] 20 mg PO BID@0800,1700 11/19/18 11/19/18 Gabapentin [Neurontin] 100 mg PO BID 11/19/18 11/19/18 HYDROcodone/APAP 7.5-325MG [[place] 1 tab PO Q6HR PRN 11/19/18 11/19/18 7.5-325] Ibuprofen [Motrin] 400 mg PO Q6HR PRN 11/19/18 11/19/18 Lactose-Reduced Food [Ensure Plus] 120 ml PO BID@0800,1700 11/19/18 11/19/18 Lidocaine 5% Patch [Lidoderm] 1 patch TOPICAL DAILY 11/19/18 11/19/18 Magnesium Hydroxide [Milk of 2,400 mg PO DAILY PRN 11/19/18 11/19/18 Magnesia] Menthol [Biofreeze] 1 applic TOPICAL BID 04/17/19 04/17/19 Na Phos,M-B/Na Phos,Di-Ba [Fleet 133 ml RECTAL DAILY PRN 11/19/18 11/19/18 Adult] Polyethylene Glycol 3350 [Miralax] 17 gm PO DAILY 11/19/18 11/19/18 cefTRIAXone [Rocephin] 1 gm IVPB DAILY@1800 11/19/18 11/19/18 predniSONE See Taper PO DIRECTED 11/19/18 11/19/18 Previous Rx's Medication Instructions Recorded amLODIPine [Norvasc] 5 mg PO DAILY tab 10/23/18 ARIPiprazole [Abilify] 1 mg PO DAILY tab 11/11/18 Allergies Allergy/AdvReac Type Severity Reaction Status Date / Time aspirin Allergy Unknown Verified 11/19/18 07:51 Review of Systems ROS Statement: Those systems with pertinent positive or pertinent negative responses have been documented in the HPI. ROS Other: All systems not noted in ROS Statement are negative. Limitations: ROS unobtainable due to patients medical condition Past Medical History Past Medical History: Asthma, Dementia, Hearing Disorder / Deafness, Memory Impairment Additional Past Medical History / Comment(s): Some short term memory problems, cherokee bilaterally. History of Any Multi-Drug Resistant Organisms: None Reported Past Surgical History: Appendectomy Additional Past Surgical History / Comment(s): Low back injection, colonoscopies, nasal polyps removed. Past Anesthesia/Blood Transfusion Reactions: No Reported Reaction Past Psychological History: No Psychological Hx Reported Smoking Status: Never smoker Past Alcohol Use History: None Reported Past Drug Use History: None Reported - Past Family History Father Additional Family Medical History / Comment(s): Father of heart problems at the ageof 45yrs. Mother Family Medical History: No Reported History General Exam Limitations: altered mental status General appearance: alert, in distress Head exam: Present: atraumatic, normocephalic Eye exam: Present: normal appearance ENT exam: Present: mucous membranes dry Neck exam: Present: full ROM. Absent: meningismus Respiratory exam: Present: rhonchi. Absent: respiratory distress, wheezes, rales, stridor Cardiovascular Exam: Present: tachycardia, irregular rhythm, normal heart sounds. Absent: systolic murmur, diastolic murmur, rubs, gallop GI/Abdominal exam: Present: soft, guarding (Suprapubic), other (There is full ness in the suprapubic area consistent with bladder). Absent: tenderness, rebound, rigid, mass Extremities exam: Present: normal inspection, normal capillary refill. Absent: calf tenderness Neurological exam: Present: altered. Absent: motor sensory deficit Skin exam: Present: warm, dry, intact, pallor. Absent: rash Course Vital Signs 11/19/18 11/19/18 11/19/18 05:00 05:16 06:25 Temperature 100.6 F H Pulse Rate 116 H 104 H Respiratory 18 20 Rate Blood Pressure 75/52 92/54 O2 Sat by Pulse 95 95 Oximetry Medical Decision Making - Lab Data Result diagrams: 11/19/18 05:08 11/19/18 05:08 Lab Results 11/19/18 11/19/18 11/19/18 Range/Units 05:08 05:08 05:08 WBC 2.6 L (3.8-10.6) k/uL RBC 2.70 L (4.30-5.90) m/uL Hgb 8.1 L (13.0-17.5) gm/dL Hct 25.7 L (39.0-53.0) % MCV 95.0 (80.0-100.0) fL MCH 30.1 (25.0-35.0) pg MCHC 31.7 (31.0-37.0) g/dL RDW 14.8 (11.5-15.5) % Plt Count 121 L (150-450) k/uL Neutrophils % 64 % Lymphocytes % 31 % Monocytes % 3 % Eosinophils % 0 % Basophils % 0 % Neutrophils # 1.7 (1.3-7.7) k/uL Lymphocytes # 0.8 L (1.0-4.8) k/uL Monocytes # 0.1 (0-1.0) k/uL Eosinophils # 0.0 (0-0.7) k/uL Basophils # 0.0 (0-0.2) k/uL Hypochromasia Moderate Poikilocytosis Slight PT (9.0-12.0) sec INR (<1.2) APTT (22.0-30.0) sec VBG pH (7.31-7.41) VBG pCO2 (37-51) mmHg VBG HCO3 (24-28) mmol/L Sodium 131 L (137-145) mmol/L Potassium 5.4 H (3.5-5.1) mmol/L Chloride 99 (98-107) mmol/L Carbon Dioxide 30 (22-30) mmol/L Anion Gap 2 mmol/L BUN 41 H (9-20) mg/dL Creatinine 0.95 (0.66-1.25) mg/dL Est GFR (CKD-EPI)AfAm 82 (>60 ml/min/1.73 sqM) Est GFR (CKD-EPI)NonAf 71 (>60 ml/min/1.73 sqM) Glucose 85 (74-99) mg/dL Plasma Lactic Acid Pradeep (0.7-2.0) mmol/L Calcium 7.5 L (8.4-10.2) mg/dL Magnesium 1.8 (1.6-2.3) mg/dL Total Bilirubin 1.3 (0.2-1.3) mg/dL AST 47 (17-59) U/L ALT 36 (21-72) U/L Alkaline Phosphatase 40 (38-126) U/L Troponin I 0.076 H* (0.000-0.034) ng/mL Total Protein 4.4 L (6.3-8.2) g/dL Albumin 2.1 L (3.5-5.0) g/dL Urine Color Urine Appearance (Clear) Urine pH (5.0-8.0) Ur Specific Brandt (1.001-1.035) Urine Protein (Negative) Urine Glucose (UA) (Negative) Urine Ketones (Negative) Urine Blood (Negative) Urine Nitrite (Negative) Urine Bilirubin (Negative) Urine Urobilinogen (<2.0) mg/dL Ur Leukocyte Esterase (Negative) Urine RBC (0-5) /hpf Urine WBC (0-5) /hpf Urine WBC Clumps (None) /hpf Ur Squamous Epith Cells (0-4) /hpf Amorphous Sediment (None) /hpf Urine Bacteria (None) /hpf Urine Mucus (None) /hpf Influenza Type A RNA (Not Detectd) Influenza Type B (PCR) (Not Detectd) 11/19/18 11/19/18 11/19/18 Range/Units 05:08 05:08 05:30 WBC (3.8-10.6) k/uL RBC (4.30-5.90) m/uL Hgb (13.0-17.5) gm/dL Hct (39.0-53.0) % MCV (80.0-100.0) fL MCH (25.0-35.0) pg MCHC (31.0-37.0) g/dL RDW (11.5-15.5) % Plt Count (150-450) k/uL Neutrophils % % Lymphocytes % % Monocytes % % Eosinophils % % Basophils % % Neutrophils # (1.3-7.7) k/uL Lymphocytes # (1.0-4.8) k/uL Monocytes # (0-1.0) k/uL Eosinophils # (0-0.7) k/uL Basophils # (0-0.2) k/uL Hypochromasia Poikilocytosis PT 11.4 (9.0-12.0) sec INR 1.1 (<1.2) APTT 29.2 (22.0-30.0) sec VBG pH (7.31-7.41) VBG pCO2 (37-51) mmHg VBG HCO3 (24-28) mmol/L Sodium (137-145) mmol/L Potassium (3.5-5.1) mmol/L Chloride (98-107) mmol/L Carbon Dioxide (22-30) mmol/L Anion Gap mmol/L BUN (9-20) mg/dL Creatinine (0.66-1.25) mg/dL Est GFR (CKD-EPI)AfAm (>60 ml/min/1.73 sqM) Est GFR (CKD-EPI)NonAf (>60 ml/min/1.73 sqM) Glucose (74-99) mg/dL Plasma Lactic Acid Pradeep 1.8 (0.7-2.0) mmol/L Calcium (8.4-10.2) mg/dL Magnesium (1.6-2.3) mg/dL Total Bilirubin (0.2-1.3) mg/dL AST (17-59) U/L ALT (21-72) U/L Alkaline Phosphatase (38-126) U/L Troponin I (0.000-0.034) ng/mL Total Protein (6.3-8.2) g/dL Albumin (3.5-5.0) g/dL Urine Color Urine Appearance (Clear) Urine pH (5.0-8.0) Ur Specific Brandt (1.001-1.035) Urine Protein (Negative) Urine Glucose (UA) (Negative) Urine Ketones (Negative) Urine Blood (Negative) Urine Nitrite (Negative) Urine Bilirubin (Negative) Urine Urobilinogen (<2.0) mg/dL Ur Leukocyte Esterase (Negative) Urine RBC (0-5) /hpf Urine WBC (0-5) /hpf Urine WBC Clumps (None) /hpf Ur Squamous Epith Cells (0-4) /hpf Amorphous Sediment (None) /hpf Urine Bacteria (None) /hpf Urine Mucus (None) /hpf Influenza Type A RNA Not Detected (Not Detectd) Influenza Type B (PCR) Not Detected (Not Detectd) 11/19/18 11/19/18 Range/Units 05:45 06:50 WBC (3.8-10.6) k/uL RBC (4.30-5.90) m/uL Hgb (13.0-17.5) gm/dL Hct (39.0-53.0) % MCV (80.0-100.0) fL MCH (25.0-35.0) pg MCHC (31.0-37.0) g/dL RDW (11.5-15.5) % Plt Count (150-450) k/uL Neutrophils % % Lymphocytes % % Monocytes % % Eosinophils % % Basophils % % Neutrophils # (1.3-7.7) k/uL Lymphocytes # (1.0-4.8) k/uL Monocytes # (0-1.0) k/uL Eosinophils # (0-0.7) k/uL Basophils # (0-0.2) k/uL Hypochromasia Poikilocytosis PT (9.0-12.0) sec INR (<1.2) APTT (22.0-30.0) sec VBG pH 7.46 H (7.31-7.41) VBG pCO2 41 (37-51) mmHg VBG HCO3 29 H (24-28) mmol/L Sodium (137-145) mmol/L Potassium (3.5-5.1) mmol/L Chloride (98-107) mmol/L Carbon Dioxide (22-30) mmol/L Anion Gap mmol/L BUN (9-20) mg/dL Creatinine (0.66-1.25) mg/dL Est GFR (CKD-EPI)AfAm (>60 ml/min/1.73 sqM) Est GFR (CKD-EPI)NonAf (>60 ml/min/1.73 sqM) Glucose (74-99) mg/dL Plasma Lactic Acid Pradeep (0.7-2.0) mmol/L Calcium (8.4-10.2) mg/dL Magnesium (1.6-2.3) mg/dL Total Bilirubin (0.2-1.3) mg/dL AST (17-59) U/L ALT (21-72) U/L Alkaline Phosphatase (38-126) U/L Troponin I (0.000-0.034) ng/mL Total Protein (6.3-8.2) g/dL Albumin (3.5-5.0) g/dL Urine Color Yellow Urine Appearance Cloudy (Clear) Urine pH 5.5 (5.0-8.0) Ur Specific Brandt 1.025 (1.001-1.035) Urine Protein 2+ H (Negative) Urine Glucose (UA) Negative (Negative) Urine Ketones Negative (Negative) Urine Blood Moderate H (Negative) Urine Nitrite Negative (Negative) Urine Bilirubin Negative (Negative) Urine Urobilinogen <2.0 (<2.0) mg/dL Ur Leukocyte Esterase Small H (Negative) Urine RBC 5 (0-5) /hpf Urine WBC 18 H (0-5) /hpf Urine WBC Clumps Few H (None) /hpf Ur Squamous Epith Cells 4 (0-4) /hpf Amorphous Sediment Occasional H (None) /hpf Urine Bacteria Rare H (None) /hpf Urine Mucus Rare H (None) /hpf Influenza Type A RNA (Not Detectd) Influenza Type B (PCR) (Not Detectd) Disposition Clinical Impression: Dementia, Pneumonia, Elevated troponin I level Disposition: ADMITTED IP TO THIS HOSP Condition: Serious Is patient prescribed a controlled substance at d/c from ED?: No Referrals: Aguilar Kumar MD [Primary Care Provider] - 1-2 days
[2018-11-19] MEDS: LEVOFLOXACIN 750 MG TAB PO SCH (11:10)
[2018-11-19] MEDS: ARIPiprazole 2 MG TAB PO SCH (11:11)
[2018-11-19] MEDS: amLODIPine 5 MG TAB PO SCH (11:11)
[2018-11-19] MEDS: GABAPENTIN 100 MG CAP PO SCH ×2 (11:11→22:30)
[2018-11-19] MEDS: POLYETHYLENE GLYCOL 3350 17 GM POWD.PACK PO SCH (11:13)
[2018-11-19] MEDS: LIDOCAINE 5% PATCH TOPICAL SCH (11:33)
[2018-11-19] MEDS: PIPERACILLIN-TAZOBACTAM 3.375 GM in SODIUM CHLORIDE 0.9% 100 ML IVPB SCH ×2 (15:30→23:40)
[2018-11-19 16:09] LABS: Glucose,Whole Blood 138 mg/dL (75-99)
[2018-11-19] MEDS: FAMOTIDINE 20 MG TAB PO SCH (17:33)
[2018-11-19] MEDS ORDERED: cefTRIAXone 1 GM VIAL IVPB SCH (18:00)
[2018-11-19] MEDS: METHYL SALICYLATE/MENTHOL CREAM 5 OZ TOPICAL SCH (19:36)
[2018-11-19] MEDS: HYDROcodone/APAP 7.5-325MG 1 EACH TAB PO PRN (19:49)
[2018-11-19] MEDS: SYMBICORT 160-4.5 MCG INHALER INHALATION SCH (20:27)
[2018-11-19] MEDS: ACETAMINOPHEN TAB 325 MG TAB PO PRN (21:16)
[2018-11-19] MEDS: MONTELUKAST 10 MG TAB PO SCH (22:30)
[2018-11-20] MEDS: ARIPiprazole 2 MG TAB PO SCH (07:40)
[2018-11-20] MEDS: PIPERACILLIN-TAZOBACTAM 3.375 GM in SODIUM CHLORIDE 0.9% 100 ML IVPB SCH (07:40)
[2018-11-20 07:41] LABS: Basophils % (A) 0 %; Eosinophils % (A) 0 %; HCT 25.5 % (39.0-53.0); Hypochromasia Marked; Lymphocytes # (A) 0.6 k/uL (1.0-4.8); Lymphocytes % (A) 15 %; MCHC 31.5 g/dL (31.0-37.0); MCV 95.4 fL (80.0-100.0); Mean Platelet Volume 8.3; Monocytes # (A) 0.1 k/uL (0-1.0); Monocytes % (A) 3 %; Neutrophils % (A) 81 %; Platelet Count 158 k/uL (150-450); RBC 2.67 m/uL (4.30-5.90); WBC 3.8 k/uL (3.8-10.6)
[2018-11-20] MEDS: POLYETHYLENE GLYCOL 3350 17 GM POWD.PACK PO SCH (07:41)
[2018-11-20] MEDS: LEVOFLOXACIN 750 MG TAB PO SCH (07:41)
[2018-11-20] MEDS: LIDOCAINE 5% PATCH TOPICAL SCH (07:41)
[2018-11-20] MEDS: GABAPENTIN 100 MG CAP PO SCH ×2 (07:41→20:20)
[2018-11-20] MEDS: amLODIPine 5 MG TAB PO SCH (07:41)
[2018-11-20] MEDS: FAMOTIDINE 20 MG TAB PO SCH (07:41)
[2018-11-20] MEDS: METHYL SALICYLATE/MENTHOL CREAM 5 OZ TOPICAL SCH ×2 (07:42→20:22)
[2018-11-20 08:02] LABS: Calcium 7.5 mg/dL (8.4-10.2); Potassium 4.4 mmol/L (3.5-5.1)
[2018-11-20] MEDS: SYMBICORT 160-4.5 MCG INHALER INHALATION SCH ×2 (08:19→20:34)
[2018-11-20] MEDS: SODIUM CHLORIDE 0.9% 1,000 ML IV SCH (09:06)
--- NOTE | 2018-11-20 09:38 | CONS ---
CONSULTATION CHIEF COMPLAINT: Altered mental status. This is an 88-year-old gentleman who lives in a longterm, was brought in because of fever and moaning. He has been diagnosed with urinary tract infection and is admitted to hospital for the same. She has severe advanced dementia. An EKG on him showed atrial fibrillation with nonspecific ST-T wave changes and PVCs. The patient was in sinus rhythm at his last admission. I am not able to obtain any meaningful information from the patient who is constantly moaning, but is really not giving any information. He remains in A. fib with somewhat of a poorly controlled ventricular rate. The patient was in the hospital not too long ago with GI bleed and low hemoglobin. PAST MEDICAL HISTORY: Past medical history is significant for severe dementia, hypertension. CURRENT MEDICATIONS: Current medications include Abilify, Lidoderm, MiraLAX, Norvasc, Singulair, Ensure, Neurontin, prednisone, ibuprofen. ALLERGIES: Allergic to ASPIRIN. FAMILY HISTORY: Family history is negative for premature coronary artery disease. SOCIAL HISTORY AND REVIEW OF SYSTEMS: I am unable to obtain from the patient. PHYSICAL EXAMINATION: On exam, patient is constantly moaning. Heart rate is 77 beats per minute. Blood pressure is 110/45. Respiratory rate is 18. Chest exam reveals good air entry bilaterally. Heart exam reveals first and second heart sounds, irregular rhythm. A systolic murmur at the apex. Abdomen is soft, nontender. Examination of extremities reveals bilateral 1+ pitting edema. LABS: Labs show a hemoglobin of 8, potassium is 4.4, creatinine is 1.3. ASSESSMENT: 1. Persistent atrial fibrillation with controlled ventricular rate. 2. Severe advanced dementia. 3. Urinary tract infection. PLAN: Patient is not a candidate for long-term anticoagulation given the recent GI bleed. Will use beta blockers for optimal rate control. MMODL / IJN: [id number] /
[2018-11-20] MEDS ORDERED: IPRATROPIUM-ALBUTEROL 3 ML NEB INHALATION PRN (11:31)
[2018-11-20] MEDS: IPRATROPIUM-ALBUTEROL 3 ML NEB INHALATION SCH ×3 (11:53→20:34)
[2018-11-20] MEDS: HYDROcodone/APAP 7.5-325MG 1 EACH TAB PO PRN (11:55)
--- NOTE | 2018-11-20 12:50 | P.HPIM ---
History of Present Illness H&P Date: 11/20/18 This is a 88-year-old gentleman from [facility] admitted with fever ,sepsis, bilateral pneumonia, pleural effusions,UTI in a patient with advanced dementia, anemia, recent GI bleed, contractures and multiple other medical issues. EKG reported atrial fibrillation with nonspecific ST-T wave changes, PVCs. Telemetry reports uncontrolled atrial fibrillation with heart rates up to 130. Troponin 0.076, 0.079, 0.069.Beta blockers initiated.Lactic acid normal on admission, worsened during the night up to 3.8, systolic blood pressure dropped into the mid 80s, received 500 mL fluid bolus, normal this morning. Systolic blood pressure in the low 100s this morning. Forde catheter inserted for urinary retention. Creatinine 0.95, up to 1.37. On admission, temperature 100.6, WBC 2.6. T-max currently 103.1. Blood cultures pending. Urine cultures reporting group D enterococcus. Chest x-ray reporting small to moderate by basilar airspace more on the right suggestive of pneumonia and or atelectasis versus aspiration. Small to moderate bilateral pleural effusions, more on the right. Abdomen/pelvis CT reported moderate bilateral pleural effusions, moderate bilateral lower lobe consolidation with air bronchogram suggestive of pneumonia versus aspiration, Centrilobular pulmonary emphysema, small moderate bilateral pleural effusions, mild anasarca, moderate cardiomegaly,. Oxygen requirements have increased from 3-5 L to maintain O2 sats in the low to high 90%. Maintained on Zosyn and Levaquin. Review of Systems ROS unobtainable: due to mental status Past Medical History Past Medical History: Asthma, Heart Failure, COPD, Dementia, GERD/Reflux, Hearing Disorder / Deafness, Memory Impairment Additional Past Medical History / Comment(s): Some short term memory problems, very [place] bilaterally, upper GI bleed, acute blood loss anemia with transfusions, melanotic stools/+OB, mild CHF, arthritis in hips, DDD L5-S1, spondylolithiasis, lumbar radiculopathy/pain goes down both legs with L leg worse, benjamin esophagitis, zencker's diverticulum. History of Any Multi-Drug Resistant Organisms: None Reported Past Surgical History: Appendectomy Additional Past Surgical History / Comment(s): Low back injection, 11/10/18 EGD with bx, colonoscopies, nasal polyps removed. Past Anesthesia/Blood Transfusion Reactions: No Reported Reaction Past Psychological History: No Psychological Hx Reported Additional Psychological History / Comment(s): Pt resides at [facility]. Staff states he is in bed or merced lifted to wheelchair. Staff state pt is normally AxOx3 but is very [place]. Smoking Status: Never smoker Past Alcohol Use History: None Reported Past Drug Use History: None Reported - Past Family History Father Additional Family Medical History / Comment(s): Father of heart problems at the ageof 45yrs. Mother Family Medical History: No Reported History Medications and Allergies Home Medications Medication Instructions Recorded Confirmed Type Albuterol Sulfate [Proair Hfa] 2 puff INHALATION RT-QID PRN 10/21/18 11/19/18 History Mometasone/Formoterol [Dulera 200 2 puff INHALATION RT-BID@0800,1700 10/21/18 11/19/18 History Mcg/5 Mcg Inhaler] Montelukast Sodium [Singulair] 10 mg PO HS 10/21/18 11/19/18 History amLODIPine [Norvasc] 5 mg PO DAILY tab 10/23/18 11/19/18 Rx ARIPiprazole [Abilify] 1 mg PO DAILY tab 11/11/18 11/19/18 Rx Acetaminophen [Tylenol 8 Hour] 650 mg PO Q4H PRN 11/19/18 11/19/18 History Bisacodyl [Dulcolax] 10 mg RECTAL DAILY PRN 11/19/18 11/19/18 History Famotidine [Pepcid] 20 mg PO BID@0800,1700 11/19/18 11/19/18 History Gabapentin [Neurontin] 100 mg PO BID 11/19/18 11/19/18 History HYDROcodone/APAP 7.5-325MG [Dorothy 1 tab PO Q6HR PRN 11/19/18 11/19/18 History 7.5-325] Ibuprofen [Motrin] 400 mg PO Q6HR PRN 11/19/18 11/19/18 History Lactose-Reduced Food [Ensure Plus] 120 ml PO BID@0800,1700 11/19/18 11/19/18 History Lidocaine 5% Patch [Lidoderm] 1 patch TOPICAL DAILY 11/19/18 11/19/18 History Magnesium Hydroxide [Milk of 2,400 mg PO DAILY PRN 11/19/18 11/19/18 History Magnesia] Menthol [Biofreeze] 1 applic TOPICAL BID 11/19/18 11/19/18 History Na Phos,M-B/Na Phos,Di-Ba [Fleet 133 ml RECTAL DAILY PRN 11/19/18 11/19/18 History Adult] Polyethylene Glycol 3350 [Miralax] 17 gm PO DAILY 11/19/18 11/19/18 History cefTRIAXone [Rocephin] 1 gm IVPB DAILY@1800 11/19/18 11/19/18 History predniSONE See Taper PO DIRECTED 11/19/18 11/19/18 History Allergies Allergy/AdvReac Type Severity Reaction Status Date / Time aspirin Allergy Unknown Verified 11/19/18 07:51 Physical Exam Vitals: Vital Signs Temp Pulse Pulse Resp BP BP Pulse Ox 11/20/18 08:00 77 18 11/20/18 07:45 98.9 F 77 18 110/49 92 L 11/20/18 03:45 98.7 F 80 20 102/62 95 11/20/18 00:00 99 F 93 20 86/60 95 11/19/18 20:35 78 11/19/18 20:27 76 11/19/18 20:00 103.1 F H 76 20 116/78 98 11/19/18 16:00 98.6 F 118 H 16 86/57 91 L 11/19/18 12:00 98.3 F 114 H 22 132/70 92 L 11/19/18 10:10 100.6 F H 90 17 105/55 94 L 11/19/18 10:07 90 17 105/55 94 L 11/19/18 09:50 100 15 105/55 11/19/18 09:40 99 17 105/55 11/19/18 09:30 96 18 105/55 11/19/18 09:20 105 H 25 H 11/19/18 09:10 97 15 105/55 11/19/18 09:00 110 H 15 105/55 Intake and Output 11/19/18 11/20/18 11/20/18 22:59 06:59 14:59 Output Total 300 150 Balance -300 -150 Output: Urine 300 150 Other: Voiding Method Indwelling Catheter Indwelling Catheter Indwelling Catheter Weight 68.2 kg PHYSICAL EXAM: VITAL SIGNS: As above GENERAL: Lying in bed, no acute distress, moaning at times. Alert and oriented 1. HEENT: Conjunctivae normal. eyes normal. NECK: No JVD. No thyroid enlargement. No LNs CARDIOVASCULAR: S1, S2 irregular with rapid ventricular rate. Positive systolic murmur. RESPIRATION: Nonlabored ,Breath sounds diminished in the bases, fine bibasilar crackles. No rhonchi. ABDOMEN: Soft, nontender . No guarding. no masses palpable. No guarding, no rigidity Bowel sounds heard. Extremities: Positive edema of bilateral upper and lower extremities PSYCHIATRY: Alert and oriented -1, mood and affect normal. NERVOUS SYSTEM: Cranial N 2-12 grossly normal. Contractures, Diffuse weakness. No focal deficits. Skin: Unstageable coccyx ulcer, present on admission Microbiology 11/19/18 05:45 Urine,Voided Urine Culture - Preliminary Group D Enterococcus 11/19/18 06:50 Blood Blood Culture - Preliminary No Growth after 24 hours Results CBC & Chem 7: 11/20/18 07:12 11/20/18 07:12 Labs: Abnormal Lab Results - Last 24 Hours (Table) 11/19/18 11/19/18 11/19/18 Range/Units 14:29 16:08 19:40 RBC (4.30-5.90) m/uL Hgb (13.0-17.5) gm/dL Hct (39.0-53.0) % Lymphocytes # (1.0-4.8) k/uL Sodium (137-145) mmol/L BUN (9-20) mg/dL Creatinine (0.66-1.25) mg/dL Glucose (74-99) mg/dL POC Glucose (mg/dL) 138 H (75-99) mg/dL Plasma Lactic Acid Pradeep (0.7-2.0) mmol/L Calcium (8.4-10.2) mg/dL Troponin I 0.079 H* 0.069 H* (0.000-0.034) ng/mL 11/19/18 11/19/18 11/20/18 Range/Units 19:48 23:46 07:12 RBC 2.67 L (4.30-5.90) m/uL Hgb 8.0 L (13.0-17.5) gm/dL Hct 25.5 L (39.0-53.0) % Lymphocytes # 0.6 L (1.0-4.8) k/uL Sodium (137-145) mmol/L BUN (9-20) mg/dL Creatinine (0.66-1.25) mg/dL Glucose (74-99) mg/dL POC Glucose (mg/dL) (75-99) mg/dL Plasma Lactic Acid Pradeep 3.8 H* 2.5 H* (0.7-2.0) mmol/L Calcium (8.4-10.2) mg/dL Troponin I (0.000-0.034) ng/mL 11/20/18 Range/Units 07:12 RBC (4.30-5.90) m/uL Hgb (13.0-17.5) gm/dL Hct (39.0-53.0) % Lymphocytes # (1.0-4.8) k/uL Sodium 136 L (137-145) mmol/L BUN 47 H (9-20) mg/dL Creatinine 1.37 H (0.66-1.25) mg/dL Glucose 106 H (74-99) mg/dL POC Glucose (mg/dL) (75-99) mg/dL Plasma Lactic Acid Pradeep (0.7-2.0) mmol/L Calcium 7.5 L (8.4-10.2) mg/dL Troponin I (0.000-0.034) ng/mL Microbiology - Last 24 Hours (Table) 11/19/18 05:45 Urine Culture - Preliminary Urine,Voided Thrombosis Risk Factor Assmnt - Choose All That Apply Any of the Below Risk Factors Present?: Yes Each Factor Represents 1 point: Abnormal pulmonary function (COPD), Serious lung disease incl. pneumonia (< 1month) Other Risk Factors: Yes Each Risk Factor Represents 3 Points: Age 75 years or older Other congenital or acquired thrombophilia - If yes, enter type in comment: No Thrombosis Risk Factor Assessment Total Risk Factor Score: 5 Thrombosis Risk Factor Assessment Level: High Risk Assessment and Plan Assessment: -Sepsis secondary to Bilateral pneumonia with pleural effusions, UTI. -Hypoxic respiratory failure secondary to the above -Persistent atrial fibrillation with uncontrolled ventricular rate, not candidate for anticoagulation secondary to recent GI bleed as per cardiology - acute UTI with group D enterococcus -Unstageable coccyx ulcer, present on admission -Severe advanced dementia -To acute renal failure. -COPD -Dementia, possibly Alzheimer's -Gastroesophageal reflux disease -Hard of hearing Plan: Continue on current medication regime ,monitoring and symptomatic treatment. Strict aspiration precautions. Infectious disease consulted regarding wound care, antibiotics. Follow cultures closely. maintaining antibiotics, gentle IV fluid hydration. Pulmonary consulted.Home meds have been reviewed and resumed. GI prophylaxis in place. Close monitoring of renal function, electrolytes with repeat labs ordered for a.m. Prognosis guarded given multiple complex medical issues. The impression and plan of care has been dictated as directed. : I performed a history and examination of this patient, discussed the same with the dictator. I agree with the dictator's note ,documented as a scribe. Any additional findings or plans will be noted.
[2018-11-20 14:10] VITALS: BMI 20.4
--- NOTE | 2018-11-20 14:46 | P.CNPUL ---
History of Present Illness Consult date: 11/20/18 Requesting physician: Aguilar Kumar Reason for consult: dyspnea, hypoxemia, pneumonia, abnormal CXR/CT Chief complaint: Acute aspiration pneumonia History of present illness: This is a 88-year-old white male patient of Dr. Kumar with multiple medical comorbidities including history of hypertension, hypercholesterolemia, degenerative joint disease, mild intermittent asthma, moderate to severe dementia, chronic pain syndrome related to history of lumbar spinal stenosis, who is a resident of a local care home, [facility], was brought into the hospital per EMS on 11/19/2018 for evaluation of fever, and a suspected aspiration pneumonia. He was being treated with antibiotics for a urinary tract infection at the care home. Forde catheter has recently been discontinued related to infection. Ration is an extremely poor historian related to underlying history of advanced dementia. Is febrile on presentation with a temp of 100.6F, which later increased to 103.1. Influenza screen was negative, chest x-ray was obtained, and showed a [id number] amount of bibasilar airspace opacities more so on the right, [id number] bilateral pleural effusions more so on the right. EKG showed A. fib with a rate of 117 BPM, with nonspecific ST abnormality. he was also complaining of abdominal pain, and CT of the abdomen and pelvis was obtained, showing mild anasarca, intraperitoneal space was unremarkable, no evidence of free air, no significant fluid collection, there were bilateral sacral insufficiency fractures, osteopenia, moderate degenerative changes in the osseous structures, upper cuts of the abdominal CT showed moderate bilateral pleural effusions, with moderate consolidation in bilateral lower lobes with air bronchograms consistent with malou bauer's history of aspiration pneumonia. Initial lab work showed leukopenia, with white blood cell count of 2.6, hemoglobin of 8.1, sodium of 131, potassium is of 5.4, chloride was 99, CO2 is 30, BUN was 41, creatinine was 0.95, plasma lactic acid was initially 1.8, did increase to 3.8, with fluid resuscitation and is currently at 1.4. Troponins are 0.076, 0.079, and 0.069, LFTs were normal, urinalysis showed 2+ protein, small leuk trase, white blood cells in clumps, rare bacteria. IV fluid hydration has been initiated, he was started on broad- spectrum antibiotics, patient was initially hypotensive on presentation, which has improved with IV fluids. Patient is quite debilitated, he is only oriented to self, his verbal responses are mumbled, difficult to understand, patient is generally weak, does not seem to be in acute respiratory distress at the moment, he is resting in bed, he seems to be chilled, he wants to be covered up, lung sounds are quite diminished at the bases, with crackles. No rhonchi, no wheezing noted, he apparently does have an unstageable sacrum wound. Currently hemodynamically stable, his oxygen requirement did increase, from 0-5 L, his pulse ox on supplemental oxygen is only 92, afebrile this morning, urine culture showed group D enterococcus Review of Systems All systems: negative Constitutional: Denies chills, Denies fever Eyes: denies blurred vision, denies pain Ears, nose, mouth and throat: Denies headache, Denies sore throat Cardiovascular: Denies chest pain, Denies shortness of breath Respiratory: Reports dyspnea, Denies cough Gastrointestinal: Reports abdominal pain, Denies diarrhea, Denies nausea, Denies vomiting Musculoskeletal: Denies myalgias Integumentary: Denies pruritus, Denies rash Neurological: Denies numbness, Denies weakness Psychiatric: Reports confusion, Denies anxiety, Denies depression Endocrine: Denies fatigue, Denies weight change Past Medical History Past Medical History: Asthma, Heart Failure, COPD, Dementia, GERD/Reflux, Hearing Disorder / Deafness, Memory Impairment Additional Past Medical History / Comment(s): Some short term memory problems, very [place] bilaterally, upper GI bleed, acute blood loss anemia with transfusions, melanotic stools/+OB, mild CHF, arthritis in hips, DDD L5-S1, spondylolithiasis, lumbar radiculopathy/pain goes down both legs with L leg worse, benjamin esophagitis, zencker's diverticulum. History of Any Multi-Drug Resistant Organisms: None Reported Past Surgical History: Appendectomy Additional Past Surgical History / Comment(s): Low back injection, 11/10/18 EGD with bx, colonoscopies, nasal polyps removed. Past Anesthesia/Blood Transfusion Reactions: No Reported Reaction Past Psychological History: No Psychological Hx Reported Additional Psychological History / Comment(s): Pt resides at [facility]. Staff states he is in bed or merced lifted to wheelchair. Staff state pt is normally AxOx3 but is very [place]. Smoking Status: Never smoker Past Alcohol Use History: None Reported Past Drug Use History: None Reported - Past Family History Father Additional Family Medical History / Comment(s): Father of heart problems at the ageof 45yrs. Mother Family Medical History: No Reported History Medications and Allergies Home Medications Medication Instructions Recorded Confirmed Type Albuterol Sulfate [Proair Hfa] 2 puff INHALATION RT-QID PRN 10/21/18 11/19/18 History Mometasone/Formoterol [Dulera 200 2 puff INHALATION RT-BID@0800,1700 10/21/18 11/19/18 History Mcg/5 Mcg Inhaler] Montelukast Sodium [Singulair] 10 mg PO HS 10/21/18 11/19/18 History amLODIPine [Norvasc] 5 mg PO DAILY tab 10/23/18 11/19/18 Rx ARIPiprazole [Abilify] 1 mg PO DAILY tab 11/11/18 11/19/18 Rx Acetaminophen [Tylenol 8 Hour] 650 mg PO Q4H PRN 11/19/18 11/19/18 History Bisacodyl [Dulcolax] 10 mg RECTAL DAILY PRN 11/19/18 11/19/18 History Famotidine [Pepcid] 20 mg PO BID@0800,1700 11/19/18 11/19/18 History Gabapentin [Neurontin] 100 mg PO BID 11/19/18 11/19/18 History HYDROcodone/APAP 7.5-325MG [Arley 1 tab PO Q6HR PRN 11/19/18 11/19/18 History 7.5-325] Ibuprofen [Motrin] 400 mg PO Q6HR PRN 11/19/18 11/19/18 History Lactose-Reduced Food [Ensure Plus] 120 ml PO BID@0800,1700 11/19/18 11/19/18 History Lidocaine 5% Patch [Lidoderm] 1 patch TOPICAL DAILY 11/19/18 11/19/18 History Magnesium Hydroxide [Milk of 2,400 mg PO DAILY PRN 11/19/18 11/19/18 History Magnesia] Menthol [Biofreeze] 1 applic TOPICAL BID 11/19/18 11/19/18 History Na Phos,M-B/Na Phos,Di-Ba [Fleet 133 ml RECTAL DAILY PRN 11/19/18 11/19/18 History Adult] Polyethylene Glycol 3350 [Miralax] 17 gm PO DAILY 11/19/18 11/19/18 History cefTRIAXone [Rocephin] 1 gm IVPB DAILY@1800 11/19/18 11/19/18 History predniSONE See Taper PO DIRECTED 11/19/18 11/19/18 History Allergies Allergy/AdvReac Type Severity Reaction Status Date / Time aspirin Allergy Unknown Verified 11/19/18 07:51 Physical Exam Vitals: Vital Signs Temp Pulse Pulse Resp BP Pulse Ox 11/20/18 12:00 98.1 F 81 108/52 92 L 11/20/18 11:02 77 18 11/20/18 08:00 77 18 11/20/18 07:45 98.9 F 77 18 110/49 92 L 11/20/18 03:45 98.7 F 80 20 102/62 95 11/20/18 00:00 99 F 93 20 86/60 95 11/19/18 20:35 78 11/19/18 20:27 76 11/19/18 20:00 103.1 F H 76 20 116/78 98 11/19/18 16:00 98.6 F 118 H 16 86/57 91 L Intake and Output 11/19/18 11/20/18 11/20/18 22:59 06:59 14:59 Output Total 300 150 Balance -300 -150 Output: Urine 300 150 Other: Voiding Method Indwelling Catheter Indwelling Catheter Indwelling Catheter Weight 68.2 kg GENERAL EXAM: Lethargic but arousable 88-year-old frail elderly male, confused, appears to be quite debilitated, resting in bed, has difficulty with mobility in no apparent distress. HEAD: Normocephalic/atraumatic. EYES: Normal reaction of pupils, equal size. Conjunctiva pink, sclera white. NOSE: Clear with pink turbinates. THROAT: No erythema or exudates. NECK: No masses, no JVD, no thyroid enlargement, no adenopathy. CHEST: No chest wall deformity. Symmetrical expansion. LUNGS: Equal air entry with diminished breath sounds CVS: Regular rate and rhythm, normal S1 and S2, no gallops, no murmurs, no rubs ABDOMEN: Soft, nontender. No hepatosplenomegaly, normal bowel sounds, no guarding or rigidity. EXTREMITIES: No clubbing, extensive 2+ edema pitting in upper and lower extremities no cyanosis, 2+ pulses and upper and lower extremities. MUSCULOSKELETAL: Muscle strength and tone normal. Patient has chronic stiffness, rigidity SPINE: No scoliosis or deformity SKIN: No rashes CENTRAL NERVOUS SYSTEM: Sleepy but arousable, confused, unaware of place and time. Results - Laboratory Findings CBC and BMP: 11/20/18 07:12 11/20/18 07:12 PT/INR, D-dimer PT 11.4 sec (9.0-12.0) 11/19/18 05:30 INR 1.1 (<1.2) 11/19/18 05:30 Abnormal lab findings: Abnormal Labs 11/19/18 11/19/18 11/19/18 05:08 05:08 05:08 WBC 2.6 L RBC 2.70 L Hgb 8.1 L Hct 25.7 L Plt Count 121 L Lymphocytes # 0.8 L VBG pH VBG HCO3 Sodium 131 L Potassium 5.4 H BUN 41 H Creatinine Glucose POC Glucose (mg/dL) Plasma Lactic Acid Pradeep Calcium 7.5 L Troponin I 0.076 H* Total Protein 4.4 L Albumin 2.1 L Urine Protein Urine Blood Ur Leukocyte Esterase Urine WBC Urine WBC Clumps Amorphous Sediment Urine Bacteria Urine Mucus 11/19/18 11/19/18 11/19/18 05:45 06:50 14:29 WBC RBC Hgb Hct Plt Count Lymphocytes # VBG pH 7.46 H VBG HCO3 29 H Sodium Potassium BUN Creatinine Glucose POC Glucose (mg/dL) Plasma Lactic Acid Pradeep Calcium Troponin I 0.079 H* Total Protein Albumin Urine Protein 2+ H Urine Blood Moderate H Ur Leukocyte Esterase Small H Urine WBC 18 H Urine WBC Clumps Few H Amorphous Sediment Occasional H Urine Bacteria Rare H Urine Mucus Rare H 11/19/18 11/19/18 11/19/18 16:08 19:40 19:48 WBC RBC Hgb Hct Plt Count Lymphocytes # VBG pH VBG HCO3 Sodium Potassium BUN Creatinine Glucose POC Glucose (mg/dL) 138 H Plasma Lactic Acid Pradeep 3.8 H* Calcium Troponin I 0.069 H* Total Protein Albumin Urine Protein Urine Blood Ur Leukocyte Esterase Urine WBC Urine WBC Clumps Amorphous Sediment Urine Bacteria Urine Mucus 11/19/18 11/20/18 11/20/18 23:46 07:12 07:12 WBC RBC 2.67 L Hgb 8.0 L Hct 25.5 L Plt Count Lymphocytes # 0.6 L VBG pH VBG HCO3 Sodium 136 L Potassium BUN 47 H Creatinine 1.37 H Glucose 106 H POC Glucose (mg/dL) Plasma Lactic Acid Pradeep 2.5 H* Calcium 7.5 L Troponin I Total Protein Albumin Urine Protein Urine Blood Ur Leukocyte Esterase Urine WBC Urine WBC Clumps Amorphous Sediment Urine Bacteria Urine Mucus - Diagnostic Findings Chest x-ray: report reviewed, image reviewed Additional studies: EKG reviewed, Abdomen and pelvis ct reviewed Assessment and Plan Plan: Assessment: #1. Acute hypoxemic respiratory failure secondary to aspiration pneumonia versus healthcare acquired pneumonia, chest x-ray showed bibasilar airspace opacities right greater than left. #2. Acute urinary tract infection, was being treated with antibiotics at the [facility], urine culture is positive for group D enterococcus #3. Acute sepsis and septic shock, and the sources could include pneumonia, urinary tract infection, also considered possibility of a wound infection from the sacral wound #4. Mild lactic acidosis, related to sepsis improved with IV hydration #5. Mild elevation of troponins, leukopenia, likely related to sepsis #6. Chronic A. fib not on any chronic anticoagulation related to recent history of GI bleeding #7. Chronic anemia #8. Chronic pain syndrome related to history of lumbar spinal stenosis #9. Advanced dementia #10. Resident of a care home #11. Poor functional performance status #12. Mild intermittent asthma, patient is lifetime nonsmoker Plan: Chest x-ray and lung sections on the abdomen and pelvis CT have been reviewed by Dr. Pitts, patient has bilateral lower lobe consolidation related to pneumonia, and small right-sided pleural effusion, not enough for drainage. Antibiotic coverage will be switched from Zosyn and Levaquin to Unasyn and daptomycin. Obtain wound culture. he is not producing any sputum for culture. The influenza screen was negative. Will await recommendations from ID service as far as antibiotics. Maintain aspiration precautions. CODE STATUS is DO NOT RESUSCITATE will continue with supportive care. Patient has advanced dementia, and quite poor functional performance status. Overall long-term prognosis is poor. I performed a history & physical examination of the patient and discussed their management with my nurse practitioner, Carmen Spicer. I reviewed the nurse practitioner's note and agree with the documented findings and plan of care. Lung sounds are positive for breast sounds bilaterally. The findings and the impression was discussed with the patient. I attest to the documentation by the nurse practitioner. Time with Patient: Greater than 30
[2018-11-20] MEDS: DAPTOmycin 500 MG in SODIUM CHLORIDE 0.9% 50 ML IVPB SCH (16:07)
[2018-11-20] MEDS: AMPICILLIN-SULBACTAM 1.5 GM in SODIUM CHLORIDE 0.9% 50 ML IVPB SCH ×2 (16:56→23:24)
[2018-11-20] MEDS: ACETAMINOPHEN TAB 325 MG TAB PO PRN (20:20)
[2018-11-20] MEDS: MONTELUKAST 10 MG TAB PO SCH (20:21)
--- NOTE | 2018-11-20 23:54 | P.CONS ---
History of Present Illness - Reason for Consult Consult date: 11/20/18 - Chief Complaint fever - History of Present Illness 88-year-old male from the extended care facility presents to hospital with fever from the extended care facility and concerns to urinary tract infection and pneumonia. Because of these concerns the infectious diseases consultation requested. Chart review of present the patient has distinct also medical troubles that includes dementia, chronic pain syndrome with spinal stenosis. The patient is demented and no further information is obtainable from the patient. 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 History of Any Multi-Drug Resistant Organisms: None Reported Past Surgical History: Appendectomy Additional Past Surgical History / Comment(s): Low back injection, 11/10/18 EGD with bx, colonoscopies, nasal polyps removed. Past Anesthesia/Blood Transfusion Reactions: No Reported Reaction Past Psychological History: No Psychological Hx Reported Additional Psychological History / Comment(s): Pt resides at [facility]. Staff states he is in bed or merced lifted to wheelchair. Staff state pt is normally AxOx3 but is very AGDAAGUX. Smoking Status: Never smoker Past Alcohol Use History: None Reported Past Drug Use History: None Reported - Past Family History Father Additional Family Medical History / Comment(s): Father of heart problems at the ageof 45yrs. Mother Family Medical History: No Reported History Medications and Allergies Home Medications and Allergies Comment(s): Current Medications Acetaminophen (Tylenol Tab) 650 mg PO Q6HR PRN PRN Reason: Fever and/ or MILD Pain Last Admin: 11/20/18 20:20 Dose: 650 mg Documented by: Hydrocodone Bitart/Acetaminophen ([place] 7.5-325) 1 each PO Q6HR PRN PRN Reason: MODERATE Pain Last Admin: 11/20/18 11:55 Dose: 1 each Documented by: Albuterol Sulfate (Ventolin Nebulized) 2.5 mg INHALATION RT-QID PRN PRN Reason: Shortness Of Breath Last Admin: 11/19/18 20:25 Dose: 2.5 mg Documented by: Albuterol/Ipratropium (Duoneb 0.5 Mg-3 Mg/3 Ml Soln) 3 ml INHALATION RT-QID [facility] Last Admin: 11/20/18 20:34 Dose: 3 ml Documented by: Albuterol/Ipratropium (Duoneb 0.5 Mg-3 Mg/3 Ml Soln) 3 ml INHALATION RT-Q2H PRN PRN Reason: Shortness Of Breath Or Wheezing Amlodipine Besylate (Norvasc) 5 mg PO DAILY [facility] Last Admin: 11/20/18 07:41 Dose: 5 mg Documented by: Aripiprazole (Abilify) 1 mg PO DAILY [facility] Last Admin: 11/20/18 07:40 Dose: 1 mg Documented by: Budesonide/Formoterol Fumarate (Symbicort 160-4.5 Mcg Inhaler) 2 puff INHALATION RT-BID@0800,1700 [facility] Last Admin: 11/20/18 20:34 Dose: Not Given Documented by: Famotidine (Pepcid) 20 mg PO DAILY@0800 [facility] Gabapentin (Neurontin) 100 mg PO BID [facility] Last Admin: 11/20/18 20:20 Dose: 100 mg Documented by: Sodium Chloride (Saline 0.9%) 1,000 mls @ 50 mls/hr IV .Q20H [facility] Last Admin: 11/20/18 09:06 Dose: Not Given Documented by: Ampicillin Sodium/Sulbactam (Sodium 1.5 gm/ Sodium Chloride) 50 mls @ 100 mls/hr IVPB Q8HR [facility] Last Admin: 11/20/18 23:24 Dose: 100 mls/hr Documented by: Daptomycin 500 mg/ Sodium (Chloride) 50 mls @ 100 mls/hr IVPB Q24H [facility]; Protocol Last Admin: 11/20/18 16:07 Dose: 100 mls/hr Documented by: Lidocaine (Lidoderm) 1 patch TOPICAL DAILY [facility] Last Admin: 11/20/18 07:41 Dose: 1 patch Documented by: Magnesium Hydroxide (Milk Of Magnesia) 2,400 mg PO DAILY PRN PRN Reason: Constipation Methyl Salicylate (Thera-Gesic Cream) 1 applic TOPICAL BID [facility] Last Admin: 11/20/18 20:22 Dose: 1 applic Documented by: Miscellaneous Information (Pneumonia Protocol Utilized) 1 each PO ONCE PRN PRN Reason: Per Protocol Montelukast Sodium (Singulair) 10 mg PO [facility] Last Admin: 11/20/18 20:21 Dose: 10 mg Documented by: Polyethylene Glycol (Miralax) 17 gm PO DAILY [facility] Last Admin: 11/20/18 07:41 Dose: 17 gm Documented by: Sodium Biphosphate/Sodium Phosphate (Fleet Adult) 133 ml RECTAL DAILY PRN PRN Reason: Constipation Home Medications Medication Instructions Recorded Confirmed Type Albuterol Sulfate [Proair Hfa] 2 puff INHALATION RT-QID PRN 10/21/18 11/19/18 History Mometasone/Formoterol [Dulera 200 2 puff INHALATION RT-BID@0800,1700 10/21/18 11/19/18 History Mcg/5 Mcg Inhaler] Montelukast Sodium [Singulair] 10 mg PO 10/21/18 11/19/18 History amLODIPine [Norvasc] 5 mg PO DAILY tab 10/23/18 11/19/18 Rx ARIPiprazole [Abilify] 1 mg PO DAILY tab 11/11/18 11/19/18 Rx Acetaminophen [Tylenol 8 Hour] 650 mg PO Q4H PRN 11/19/18 11/19/18 History Bisacodyl [Dulcolax] 10 mg RECTAL DAILY PRN 11/19/18 11/19/18 History Famotidine [Pepcid] 20 mg PO BID@0800,1700 11/19/18 11/19/18 History Gabapentin [Neurontin] 100 mg PO BID 11/19/18 11/19/18 History HYDROcodone/APAP 7.5-325MG [[place] 1 tab PO Q6HR PRN 11/19/18 11/19/18 History 7.5-325] Ibuprofen [Motrin] 400 mg PO Q6HR PRN 11/19/18 11/19/18 History Lactose-Reduced Food [Ensure Plus] 120 ml PO BID@0800,1700 11/19/18 11/19/18 History Lidocaine 5% Patch [Lidoderm] 1 patch TOPICAL DAILY 11/19/18 11/19/18 History Magnesium Hydroxide [Milk of 2,400 mg PO DAILY PRN 11/19/18 11/19/18 History Magnesia] Menthol [Biofreeze] 1 applic TOPICAL BID 11/19/18 11/19/18 History Na Phos,M-B/Na Phos,Di-Ba [Fleet 133 ml RECTAL DAILY PRN 11/19/18 11/19/18 History Adult] Polyethylene Glycol 3350 [Miralax] 17 gm PO DAILY 11/19/18 11/19/18 History cefTRIAXone [Rocephin] 1 gm IVPB DAILY@1800 11/19/18 11/19/18 History predniSONE See Taper PO DIRECTED 11/19/18 11/19/18 History Allergies Allergy/AdvReac Type Severity Reaction Status Date / Time aspirin Allergy Unknown Verified 11/19/18 07:51 Physical Exam Vitals: Vital Signs Temp Pulse Pulse Resp BP Pulse Ox 11/20/18 23:34 98.1 F 91 17 95/58 93 L 11/20/18 20:36 72 11/20/18 19:44 101 F H 90 14 106/54 95 11/20/18 16:03 76 11/20/18 16:00 102 F H 84 17 102/59 89 L 11/20/18 15:53 80 11/20/18 12:00 98.1 F 81 108/52 92 L 11/20/18 11:02 77 18 11/20/18 08:00 77 18 11/20/18 07:45 98.9 F 77 18 110/49 92 L 11/20/18 03:45 98.7 F 80 20 102/62 95 11/20/18 00:00 99 F 93 20 86/60 95 Intake and Output 11/20/18 11/20/18 11/21/18 14:59 22:59 06:59 Intake Total 50 Output Total 300 Balance 50 -300 Intake: Intake, IV Titration 50 Amount Sodium Chloride 0.9% 1, 50 000 ml @ 50 mls/hr IV . Q20H [facility] Rx#:[id number] Oral 0 Output: Urine 300 Other: Voiding Method Indwelling Catheter Indwelling Catheter Indwelling Catheter Weight 68.2 kg 88-year-old male propped up in bed moaning HEENT: Anicteric oral mucosa dry Neck: The neck is supple without significant lymphadenopathy or thyromegaly. Lungs: Symmetrical air entry with coarse crackles in the bilateral bases Heart: Irregular with a soft S4 click or rub, PMI was nondisplaced. Abdomen: Positive bowel sounds soft and nontender without palpable masses or organomegaly. There was no guarding or rebound. Extremities: The upper extremities have excellent pulses they are symmetric, no significant petechiae or telangiectasia. No splinter hemorrhages were noted. Lower extremities have evidence of bilateral symmetric edema Neuro: Moans and does not interact with the observer Skin was significant solar damage Results CBC & Chem 7: 11/20/18 07:12 11/20/18 07:12 Labs: Abnormal Lab Results - Last 24 Hours (Table) 11/19/18 11/20/18 11/20/18 Range/Units 23:46 07:12 07:12 RBC 2.67 L (4.30-5.90) m/uL Hgb 8.0 L (13.0-17.5) gm/dL Hct 25.5 L (39.0-53.0) % Lymphocytes # 0.6 L (1.0-4.8) k/uL Sodium 136 L (137-145) mmol/L BUN 47 H (9-20) mg/dL Creatinine 1.37 H (0.66-1.25) mg/dL Glucose 106 H (74-99) mg/dL Plasma Lactic Acid Pradeep 2.5 H* (0.7-2.0) mmol/L Calcium 7.5 L (8.4-10.2) mg/dL Microbiology - Last 24 Hours (Table) 11/20/18 12:00 Wound Culture - Preliminary Buttock 11/19/18 05:45 Urine Culture - Preliminary Urine,Voided Group D Enterococcus 11/19/18 06:50 Blood Culture - Preliminary Blood No Growth after 24 hours Laboratory Results WBC 3.8 k/uL (3.8-10.6) 11/20/18 07:12 RBC 2.67 m/uL (4.30-5.90) L 11/20/18 07:12 Hgb 8.0 gm/dL (13.0-17.5) L 11/20/18 07:12 Hct 25.5 % (39.0-53.0) L 11/20/18 07:12 MCV 95.4 fL (80.0-100.0) 11/20/18 07:12 MCH 30.0 pg (25.0-35.0) 11/20/18 07:12 MCHC 31.5 g/dL (31.0-37.0) 11/20/18 07:12 RDW 15.0 % (11.5-15.5) 11/20/18 07:12 Plt Count 158 k/uL (150-450) 11/20/18 07:12 Neutrophils % 81 % 11/20/18 07:12 Lymphocytes % 15 % 11/20/18 07:12 Monocytes % 3 % 11/20/18 07:12 Eosinophils % 0 % 11/20/18 07:12 Basophils % 0 % 11/20/18 07:12 Neutrophils # 3.0 k/uL (1.3-7.7) 11/20/18 07:12 Lymphocytes # 0.6 k/uL (1.0-4.8) L 11/20/18 07:12 Monocytes # 0.1 k/uL (0-1.0) 11/20/18 07:12 Eosinophils # 0.0 k/uL (0-0.7) 11/20/18 07:12 Basophils # 0.0 k/uL (0-0.2) 11/20/18 07:12 Hypochromasia Marked 11/20/18 07:12 Poikilocytosis Slight 11/19/18 05:08 PT 11.4 sec (9.0-12.0) 11/19/18 05:30 INR 1.1 (<1.2) 11/19/18 05:30 APTT 29.2 sec (22.0-30.0) 11/19/18 05:30 VBG pH 7.46 (7.31-7.41) H 11/19/18 06:50 VBG pCO2 41 mmHg (37-51) 11/19/18 06:50 VBG HCO3 29 mmol/L (24-28) H 11/19/18 06:50 Sodium 136 mmol/L (137-145) L 11/20/18 07:12 Potassium 4.4 mmol/L (3.5-5.1) 11/20/18 07:12 Chloride 102 mmol/L (98-107) 11/20/18 07:12 Carbon Dioxide 30 mmol/L (22-30) 11/20/18 07:12 Anion Gap 4 mmol/L 11/20/18 07:12 BUN 47 mg/dL (9-20) H 11/20/18 07:12 Creatinine 1.37 mg/dL (0.66-1.25) H 11/20/18 07:12 Est GFR (CKD-EPI)AfAm 53 (>60 ml/min/1.73 sqM) 11/20/18 07:12 Est GFR (CKD-EPI)NonAf 45 (>60 ml/min/1.73 sqM) 11/20/18 07:12 Glucose 106 mg/dL (74-99) H 11/20/18 07:12 POC Glucose (mg/dL) 138 mg/dL (75-99) H 11/19/18 16:08 POC Glu Registered Nurse Bone Marrow Transplant ID Alina Fernandez 11/19/18 16:08 Lactic Ac Sepsis Rflx Y 11/19/18 20:20 Plasma Lactic Acid Pradeep 1.4 mmol/L (0.7-2.0) 11/20/18 07:16 Calcium 7.5 mg/dL (8.4-10.2) L 11/20/18 07:12 Magnesium 1.8 mg/dL (1.6-2.3) 11/19/18 05:08 Total Bilirubin 1.3 mg/dL (0.2-1.3) 11/19/18 05:08 AST 47 U/L (17-59) 11/19/18 05:08 ALT 36 U/L (21-72) 11/19/18 05:08 Alkaline Phosphatase 40 U/L (38-126) 11/19/18 05:08 Troponin I 0.069 ng/mL (0.000-0.034) H* 11/19/18 19:40 Total Protein 4.4 g/dL (6.3-8.2) L 11/19/18 05:08 Albumin 2.1 g/dL (3.5-5.0) L 11/19/18 05:08 TSH 0.883 mIU/L (0.465-4.680) 11/20/18 07:12 Urine Color Yellow 11/19/18 05:45 Urine Appearance Cloudy (Clear) 11/19/18 05:45 Urine pH 5.5 (5.0-8.0) 11/19/18 05:45 Ur Specific [place] 1.025 (1.001-1.035) 11/19/18 05:45 Urine Protein 2+ (Negative) H 11/19/18 05:45 Urine Glucose (UA) Negative (Negative) 11/19/18 05:45 Urine Ketones Negative (Negative) 11/19/18 05:45 Urine Blood Moderate (Negative) H 11/19/18 05:45 Urine Nitrite Negative (Negative) 11/19/18 05:45 Urine Bilirubin Negative (Negative) 11/19/18 05:45 Urine Urobilinogen <2.0 mg/dL (<2.0) 11/19/18 05:45 Ur Leukocyte Esterase Small (Negative) H 11/19/18 05:45 Urine RBC 5 /hpf (0-5) 11/19/18 05:45 Urine WBC 18 /hpf (0-5) H 11/19/18 05:45 Urine WBC Clumps Few /hpf (None) H 11/19/18 05:45 Ur Squamous Epith Cells 4 /hpf (0-4) 11/19/18 05:45 Amorphous Sediment Occasional /hpf (None) H 11/19/18 05:45 Urine Bacteria Rare /hpf (None) H 11/19/18 05:45 Urine Mucus Rare /hpf (None) H 11/19/18 05:45 Influenza Type A RNA Not Detected (Not Detectd) 11/19/18 05:08 Influenza Type B (PCR) Not Detected (Not Detectd) 11/19/18 05:08 Microbiology 11/20/18 12:00 Buttock Wound Culture - Preliminary 11/19/18 05:45 Urine,Voided Urine Culture - Preliminary Group D Enterococcus 11/19/18 06:50 Blood Blood Culture - Preliminary No Growth after 24 hours Assessment and Plan (1) Dementia Current Visit: Yes Status: Acute Code(s): F03.90 - UNSPECIFIED DEMENTIA WITHOUT BEHAVIORAL DISTURBANCE SNOMED Code(s): 05474382 (2) Aspiration pneumonia Current Visit: Yes Status: Acute Code(s): J69.0 - PNEUMONITIS DUE TO INHALATION OF FOOD AND VOMIT SNOMED Code(s): 557593384 (3) Enterococcus UTI Narrative/Plan: 88-year-old male with a significant recent past medical history of hospitalization, care for the extended care facility has evidence of pneumonia likely aspiration type, enterococcal urinary tract infection that does not appea r to be VRE in the sacral pressure ulceration that has been cultured. Antimicrobial therapy at this point in time should include piperacillin tazobactam for treatment of potential aspiration pneumonia in a extended care facility resident, consider pseudomonas. Piperacillin also give excellent cover age for enterococcal urinary tract infection. Would continue daptomycin therapy for now if is MRSA of the sacral ulceration while culture is pending. The daptomycin however would give no coverage for pulmonary infection. Cultures were further direct antibiotic therapy, prognosis poor Protocol is being utilized the foam dressing for the sacral pressure ulceration, stage III, present on admission. Current Visit: Yes Status: Acute Code(s): N39.0 - URINARY TRACT INFECTION, SITE NOT SPECIFIED; B95.2 - ENTEROCOCCUS THE CAUSE OF DISEASES CLASSIFIED ELSEWHERE SNOMED Code(s): 815571509175535
[2018-11-21] MEDS: PIPERACILLIN-TAZOBACTAM 3.375 GM in SODIUM CHLORIDE 0.9% 100 ML IVPB SCH ×3 (00:28→13:54)
[2018-11-21] MEDS: SODIUM CHLORIDE 0.9% 1,000 ML IV SCH (06:08)
[2018-11-21 07:33] LABS: Basophils % (A) 0 %; Eosinophils % (A) 1 %; HCT 23.4 % (39.0-53.0); HGB 7.3 gm/dL (13.0-17.5); Hypochromasia Marked; Lymphocytes # (A) 0.5 k/uL (1.0-4.8); Lymphocytes % (A) 14 %; MCH 30.1 pg (25.0-35.0); Mean Platelet Volume 9.3; Monocytes # (A) 0.1 k/uL (0-1.0); Monocytes % (A) 3 %; Neutrophils % (A) 81 %; Platelet Count 149 k/uL (150-450); RBC 2.42 m/uL (4.30-5.90); RDW 15.4 % (11.5-15.5); WBC 3.7 k/uL (3.8-10.6)
[2018-11-21 08:01] LABS: Calcium 7.6 mg/dL (8.4-10.2)
[2018-11-21] MEDS: ARIPiprazole 2 MG TAB PO SCH (09:17)
[2018-11-21] MEDS: GABAPENTIN 100 MG CAP PO SCH ×2 (09:17→20:38)
[2018-11-21] MEDS: METHYL SALICYLATE/MENTHOL CREAM 5 OZ TOPICAL SCH ×2 (09:17→20:59)
[2018-11-21] MEDS: LIDOCAINE 5% PATCH TOPICAL SCH (09:17)
[2018-11-21] MEDS: POLYETHYLENE GLYCOL 3350 17 GM POWD.PACK PO SCH (09:18)
[2018-11-21] MEDS: amLODIPine 5 MG TAB PO SCH (09:18)
[2018-11-21] MEDS: FAMOTIDINE 20 MG TAB PO SCH (09:18)
[2018-11-21] MEDS: IPRATROPIUM-ALBUTEROL 3 ML NEB INHALATION SCH ×4 (09:28→20:10)
--- NOTE | 2018-11-21 09:48 | ECHOF ---
Referral Reason:afib MEASUREMENTS -------- HEIGHT: 182.9 cm WEIGHT: 68.0 kg BP: RVIDd: 3.7 cm (< 3.3) IVSd: 1.3 cm (0.6 - 1.1) LVIDd: 3.2 cm (3.9 - 5.3) LVPWd: 1.2 cm (0.6 - 1.1) IVSs: 1.6 cm LVIDs: 2.2 cm LVPWs: 1.0 cm LA Diam: 4.0 cm (2.7 - 3.8) MV EXCURSION: 22.907 mm (> 18.000) MV EF SLOPE: 100 mm/s (70 - 150) MV E Rajendra: 0.94 m/s MV DecT: 86 ms MV A Rajendra: 0.54 m/s MV E/A Ratio: 1.75 RAP: 10.00 mmHg RVSP: 88.54 mmHg FINDINGS -------- Undetermined rhythm. This was a technically adequate study. The left ventricular size is normal. There is mild concentric left ventricular hypertrophy. Overa ll left ventricular systolic function is low-normal with, an EF between 50 - 55 %. The right ventricle is moderate to severely enlarged. The left atrium is mildly dilated. The right atrial size is normal. There is mild aortic valve sclerosis. There is no evidence of aortic regurgitation. Mild mitral annular calcification present. Mild mitral regurgitation is present. Moderate to severe tricuspid regurgitation present. There is moderate to severe pulmonary hypertens ion. The right ventricular systolic pressure, as measured by Doppler is more than 60 mm of Hg There is no pulmonic regurgitation present. The aortic root size is normal. IVC Not well visulized. Echo free space represents a pericardial fat pad. CONCLUSIONS -------- 1. The left ventricular size is normal. 2. There is mild concentric left ventricular hypertrophy. 3. Overall left ventricular systolic function is low-normal with, an EF between 50 - 55 %. 4. The right ventricle is moderate to severely enlarged. 5. The left atrium is mildly dilated. 6. The right atrial size is normal. 7. Interatrial Septum not well visulized. 8. There is mild aortic valve sclerosis. 9. Mild mitral annular calcification present. 10. Mild mitral regurgitation is present. 11. Moderate to severe tricuspid regurgitation present. 12. There is moderate to severe pulmonary hypertension. 13. The right ventricular systolic pressure, as measured by Doppler, is 14. There is no pulmonic regurgitation present. 15. The aortic root size is normal. 16. IVC Not well visulized. 17. Echo free space represents a pericardial fat pad. WIRE WINDING MACHINE TENDER: Paty Elizalde RDCS
[2018-11-21] MEDS: SYMBICORT 160-4.5 MCG INHALER INHALATION SCH ×2 (10:02→20:10)
--- NOTE | 2018-11-21 11:23 | CDI ---
Documentation Clarification Form Date: 11/21/2018 11:10:58 AM From: Sondra MontesSanchezHUEY, CCDS Admit Date: 11/20/2018 4:13:00 PM Patient Name: Shahriar Rojas Visit Number: [id number] Discharge Date: ATTENTION: The Clinical Documentation Specialists (CDI) and [facility] Coding Staff appreciate your assistance in clarifying documentation. Please respond to the clarification below the line at the bottom and electronically sign. The CDI & [facility] Coding staff will review the response and follow-up if needed. Please note: Queries are made part of the Legal Health Record. If you have any questions, please contact the author of this message via ITS. Dr. Dmitry Canas: A diagnosis of anemia lacks specificity to accurately reflect your patients severity of condition and clarification is needed. Per the H/P: anemia, Per the pulmonary consult: chronic anemia. History/Risk Factors: Recent GI Bleed with ABLA requiring transfusion. COPD, GERD, Spinal stenosis with chronic pain syndrome. Clinical indicators: Presented with sepsis with fever, bilateral pneumonia, pleural effusions, UTI, Sacral pressure ulcer & UTI. Also noted to be in Atrial fibrillation, no anticoagulants due to recent GI bleed. From [facility]. Hemoglobin: 8.1 - 8.0* - 7.3* Hematocrit: Hct 25.7 - 25.5* - 23.4* Treatment: IV Zosyn, INH albuterol, IV Rocephin, IV fluid rate 100 In order to capture the severity of condition, please clarify the type of anemia and etiology if known: Blood Loss Hemolytic Simple Unable to determine Other, Please specify: (Last Revision: May 2017) chronic anemia in a patient with history of recent GI bleed ,possible acute blood loss anemia in a patient with extensive medical debility , without s/sx of active bleeding.,no melena, With sepsis, acute renal failure, Recently scoped 11/21 reporting Zenker's Diverticulum, benjamin esophagitis,no ulcers or active bleeding..patient was transitioned to hospice. . MTDD
--- NOTE | 2018-11-21 12:07 | P.PN ---
Subjective Progress Note Date: 11/21/18 This is a 88-year-old white male patient of Dr. Kumar with multiple medical comorbidities including history of hypertension, hypercholesterolemia, degenerative joint disease, mild intermittent asthma, moderate to severe dementia, chronic pain syndrome related to history of lumbar spinal stenosis, who is a resident of a local [place], [facility] re[facility], was brought into the hospital per EMS on 11/19/2018 for evaluation of fever, and a suspected aspiration pneumonia. He was being treated with antibiotics for a urinary tract infection at the [place] [facility] [place]. Forde catheter has recently been discontinued related to infection. Ration is an extremely poor historian related to underlying history of advanced dementia. Is febrile on presentation with a temp of 100.6F, which later increased to 103.1. Influenza screen was negative, chest x-ray was obtained, and showed a [id number] amount of bibasilar airspace opacities more so on the right, [id number] bilateral pleural effusions more so on the right. EKG showed A. fib with a rate of 117 BPM, with nonspecific ST abnormality. he was also complaining of abdominal pain, and CT of the abdomen and pelvis was obtained, showing mild anasarca, intraperitoneal space was unremarkable, no evidence of free air, no significant fluid collection, there were bilateral sacral insufficiency fractures, osteopenia, moderate degenerative changes in the osseous structures, upper cuts of the abdominal CT showed moderate bilateral pleural effusions, with moderate consolidation in bilateral lower lobes with air bronchograms consistent with patient's history of aspiration pneumonia. Initial lab work showed leukopenia, with white blood cell count of 2.6, hemoglobin of 8.1, sodium of 131, potassium is of 5.4, chloride was 99, CO2 is 30, BUN was 41, creatinine was 0.95, plasma lactic acid was initially 1.8, did increase to 3.8, with fluid resuscitation and is currently at 1.4. Troponins are 0.076, 0.079, and 0.069, LFTs were normal, urinalysis showed 2+ protein, small leuk trase, white blood cells in clumps, rare bacteria. IV fluid hydration has been initiated, he was started on broad- spectrum antibiotics, patient was initially hypotensive on presentation, which has improved with IV fluids. Patient is quite debilitated, he is only oriented to self, his verbal responses are mumbled, difficult to understand, patient is generally weak, does not seem to be in acute respiratory distress at the moment. An echocardiogram with Doppler study was performed which revealed an ejection fraction of 50-55%, severe TR and severe pulmonary hypertension. Objective - Vital Signs Vital signs: Vital Signs Temp 98 F 11/21/18 08:00 Pulse 68 11/21/18 09:55 Resp 16 11/21/18 09:28 BP 104/53 11/21/18 08:00 Pulse Ox 99 11/21/18 09:28 Intake & Output 11/20/18 11/21/18 11/21/18 18:59 06:59 18:59 Intake Total 0 400 Output Total 300 Balance 0 100 Weight 68.2 kg 68.3 kg Intake: Intake, IV Titration 400 Amount Sodium Chloride 0.9% 1, 400 000 ml @ 50 mls/hr IV . Q20H [facility] Rx#:[id number] Oral 0 Output: Urine 300 Other: Voiding Method Indwelling Catheter Indwelling Catheter Indwelling Catheter - Exam GENERAL EXAM: Lethargic but arousable 88-year-old frail elderly male, confused, appears to be quite debilitated, resting in bed, has difficulty with mobility in no apparent distress. HEAD: Normocephalic/atraumatic. EYES: Normal reaction of pupils, equal size. Conjunctiva pink, sclera white. NOSE: Clear with pink turbinates. THROAT: No erythema or exudates. NECK: No masses, no JVD, no thyroid enlargement, no adenopathy. CHEST: No chest wall deformity. Symmetrical expansion. LUNGS: Equal air entry with diminished breath sounds CVS: Regular rate and rhythm, normal S1 and S2, no gallops, no murmurs, no rubs ABDOMEN: Soft, nontender. No hepatosplenomegaly, normal bowel sounds, no guarding or rigidity. EXTREMITIES: No clubbing, extensive 2+ edema pitting in upper and lower extremities no cyanosis, 2+ pulses and upper and lower extremities. MUSCULOSKELETAL: Muscle strength and tone normal. Patient has chronic stiffness, rigidity SPINE: No scoliosis or deformity SKIN: No rashes CENTRAL NERVOUS SYSTEM: Sleepy but arousable, confused, unaware of place and time. - Labs CBC & Chem 7: 11/21/18 07:17 11/21/18 07:17 Labs: Abnormal Lab Results - Last 24 Hours (Table) 11/21/18 11/21/18 Range/Units 07:17 07:17 WBC 3.7 L (3.8-10.6) k/uL RBC 2.42 L (4.30-5.90) m/uL Hgb 7.3 L (13.0-17.5) gm/dL Hct 23.4 L (39.0-53.0) % Plt Count 149 L (150-450) k/uL Lymphocytes # 0.5 L (1.0-4.8) k/uL BUN 52 H (9-20) mg/dL Creatinine 1.65 H (0.66-1.25) mg/dL Calcium 7.6 L (8.4-10.2) mg/dL Microbiology - Last 24 Hours (Table) 11/20/18 12:00 Gram Stain - Preliminary Buttock Wound Culture - Preliminary Presumptive MRSA 11/19/18 06:50 Blood Culture - Preliminary Blood No Growth after 48 hours 11/19/18 05:45 Urine Culture - Preliminary Urine,Voided Group D Enterococcus Assessment and Plan Plan: Assessment and plan #1. Acute hypoxemic respiratory failure secondary to aspiration pneumonia versu s healthcare acquired pneumonia, chest x-ray showed bibasilar airspace opacities right greater than left. #2. Acute urinary tract infection, was being treated with antibiotics at the [facility], urine culture is positive for group D enterococcus #3. Acute sepsis and septic shock, and the sources could include pneumonia, urinary tract infection, also considered possibility of a wound infection from t he sacral wound #4. Mild lactic acidosis, related to sepsis improved with IV hydration #5. Mild elevation of troponins, leukopenia, likely related to sepsis #6. Chronic A. fib not on any chronic anticoagulation related to recent history of GI bleeding #7. Chronic anemia #8. Chronic pain syndrome related to history of lumbar spinal stenosis #9. Advanced dementia #10. Resident of a [place] #11. Poor functional performance status #12. Mild intermittent asthma, patient is lifetime nonsmoker Plan Echocardiogram with Doppler study was performed which revealed a normal left v entricular systolic function. We will follow this patient along with you now on an as-needed basis only, please don't hesitate to call with any questions. DNP note has been reviewed, I agree with a documented findings and plan of care. Patient was seen and examined.
[2018-11-21] MEDS: VERAPAMIL 40 MG TAB PO SCH ×3 (13:28→20:36)
[2018-11-21] MEDS: HYDROcodone/APAP 7.5-325MG 1 EACH TAB PO PRN (13:28)
[2018-11-21] MEDS: DAPTOmycin 500 MG in SODIUM CHLORIDE 0.9% 50 ML IVPB SCH (13:28)
--- NOTE | 2018-11-21 14:17 | P.PN ---
Subjective Progress Note Date: 11/21/18 Principal diagnosis: Acute aspiration pneumonia, enterococcus UTI, sepsis This is a 88-year-old white male patient of Dr. Kumar with multiple medical comorbidities including history of hypertension, hypercholesterolemia, degenerative joint disease, mild intermittent asthma, moderate to severe dementia, chronic pain syndrome related to history of lumbar spinal stenosis, who is a resident of a local senior living, [facility] rehab, was brought into the hospital per EMS on 11/19/2018 for evaluation of fever, and a suspected aspiration pneumonia. He was being treated with antibiotics for a urinary tract infection at the senior living. Forde catheter has recently been discontinued related to infection. Ration is an extremely poor historian related to underlying history of advanced dementia. Is febrile on presentation with a temp of 100.6F, which later increased to 103.1. Influenza screen was negative, chest x-ray was obtained, and showed a [id number]-[id number] amount of bibasilar airspace opacities more so on the right, [id number] bilateral pleural effusions more so on the right. EKG showed A. fib with a rate of 117 BPM, with nonspecific ST abnormality. he was also complaining of abdominal pain, and CT of the abdomen and pelvis was obtained, showing mild anasarca, intraperitoneal space was unremarkable, no evidence of free air, no significant fluid collection, there were bilateral sacral insufficiency fractures, osteopenia, moderate degenerative changes in the osseous structures, upper cuts of the abdominal CT showed moderate bilateral pleural effusions, with moderate consolidation in bilateral lower lobes with air bronchograms consistent with patient's history of aspiration pneumonia. Initial lab work showed leukopenia, with white blood cell count of 2.6, hemoglobin of 8.1, sodium of 131, potassium is of 5.4, chloride was 99, CO2 is 30, BUN was 41, creatinine was 0.95, plasma lactic acid was initially 1.8, did increase to 3.8, with fluid resuscitation and is currently at 1.4. Troponins are 0.076, 0.079, and 0.069, LFTs were normal, urinalysis showed 2+ protein, small leuk trase, white blood cells in clumps, rare bacteria. IV fluid hydration has been initiated, he was started on broad- spectrum antibiotics, patient was initially hypotensive on presentation, which has improved with IV fluids. Patient is quite debilitated, he is only oriented to self, his verbal responses are mumbled, difficult to understand, patient is generally weak, does not seem to be in acute respiratory distress at the moment, he is resting in bed, he seems to be chilled, he wants to be covered up, lung sounds are quite diminished at the bases, with crackles. No rhonchi, no wheezing noted, he apparently does have an unstageable sacrum wound. Currently hemodynamically stable, his oxygen requirement did increase, from 0-5 L, his pulse ox on supplemental oxygen is only 92, afebrile this morning, urine culture showed group D enterococcus On 11/21/2018 patient seen in follow-up on selective care unit, he is lethargic, but arousable to verbal stimuli. Has a very congested cough, pulse ox on 3 L of oxygen 93%, was febrile yesterday, last episode of fever was last night at 1944 with a temp of 10 1F, he is afebrile today. Yesterday we switched patient's antibiotics to Unasyn and daptomycin for evidence of enterococcus in his urine cultures, ID service is now on board, and current antibiotic coverage consisted of Zosyn and daptomycin. Blood culture showed no growth, sacral wound culture is positive for presumptive MRSA. Today's labs have been reviewed, and showed a white blood cell count of 3.7, hemoglobin 7.3, electrolytes are within normal limits, and there has been further worsening of patient's renal profile, with B1 up to 52, creatinine of 1.65. Oral intake is poor, patient is on a modified diet for aspiration precautions. Lung sounds reveal diminished breath sounds bilaterally, scattered rhonchi. Objective - Vital Signs Vital signs: Vital Signs Temp 98.5 F 11/21/18 12:00 Pulse 70 11/21/18 12:17 Resp 18 11/21/18 12:17 BP 104/53 11/21/18 12:00 Pulse Ox 93 L 11/21/18 12:00 Intake & Output 11/20/18 11/21/18 11/21/18 18:59 06:59 18:59 Intake Total 0 400 120 Output Total 300 Balance 0 100 120 Weight 68.2 kg 68.3 kg Intake: Intake, IV Titration 400 Amount Sodium Chloride 0.9% 1, 400 000 ml @ 50 mls/hr IV . Q20H [facility] Rx#:[id number] Oral 0 120 Output: Urine 300 Other: Voiding Method Indwelling Catheter Indwelling Catheter Indwelling Catheter - Exam GENERAL EXAM: Lethargic but arousable 88-year-old frail elderly male, confused, appears to be quite debilitated, resting in bed, has difficulty with mobility in no apparent distress. HEAD: Normocephalic/atraumatic. EYES: Normal reaction of pupils, equal size. Conjunctiva pink, sclera white. NOSE: Clear with pink turbinates. THROAT: No erythema or exudates. NECK: No masses, no JVD, no thyroid enlargement, no adenopathy. CHEST: No chest wall deformity. Symmetrical expansion. LUNGS: Equal air entry with diminished breath sounds CVS: Regular rate and rhythm, normal S1 and S2, no gallops, no murmurs, no rubs ABDOMEN: Soft, nontender. No hepatosplenomegaly, normal bowel sounds, no guarding or rigidity. EXTREMITIES: No clubbing, extensive 2+ edema pitting in upper and lower extremities no cyanosis, 2+ pulses and upper and lower extremities. MUSCULOSKELETAL: Muscle strength and tone normal. Patient has chronic stiffness, rigidity SPINE: No scoliosis or deformity SKIN: No rashes CENTRAL NERVOUS SYSTEM: Sleepy but arousable, confused, unaware of place and time. - Labs CBC & Chem 7: 11/21/18 07:17 11/21/18 07:17 Labs: Abnormal Lab Results - Last 24 Hours (Table) 11/21/18 11/21/18 Range/Units 07:17 07:17 WBC 3.7 L (3.8-10.6) k/uL RBC 2.42 L (4.30-5.90) m/uL Hgb 7.3 L (13.0-17.5) gm/dL Hct 23.4 L (39.0-53.0) % Plt Count 149 L (150-450) k/uL Lymphocytes # 0.5 L (1.0-4.8) k/uL BUN 52 H (9-20) mg/dL Creatinine 1.65 H (0.66-1.25) mg/dL Calcium 7.6 L (8.4-10.2) mg/dL Microbiology - Last 24 Hours (Table) 11/19/18 05:45 Urine Culture - Final Urine,Voided Enterococcus faecalis 11/20/18 12:00 Gram Stain - Preliminary Buttock Wound Culture - Preliminary Presumptive MRSA 11/19/18 06:50 Blood Culture - Preliminary Blood No Growth after 48 hours Assessment and Plan Plan: Assessment: #1. Acute hypoxemic respiratory failure secondary to aspiration pneumonia versus healthcare acquired pneumonia, chest x-ray showed bibasilar airspace opacities right greater than left. #2. Acute urinary tract infection, was being treated with antibiotics at the [facility], urine culture is positive for group D enterococcus #3. Acute sepsis and septic shock, and the sources could include pneumonia, urinary tract infection, also considered possibility of a wound infection from the sacral wound #4. Mild lactic acidosis, related to sepsis improved with IV hydration #5. Mild elevation of troponins, leukopenia, likely related to sepsis #6. Chronic A. fib not on any chronic anticoagulation related to recent history of GI bleeding #7. Chronic anemia #8. Chronic pain syndrome related to history of lumbar spinal stenosis #9. Advanced dementia #10. Resident of a senior living #11. Poor functional performance status #12. Mild intermittent asthma, patient is lifetime nonsmoker #13. Presumptive MRSA in the sacral wound Plan: Antibiotics per ID service recommendations, and cultures from the sacral wound showing presumptive MRSA. Renal profile continues to worsen, we will increase patient's hydration 200 mL per hour, patient has diminished oral intake. Continue with nebulized bronchodilators. GI and DVT prophylaxis, maintain aspiration precautions. lobsterman prognosis is poor. I performed a history & physical examination of the patient and discussed their management with my nurse practitioner, Carmen Spicer. I reviewed the nurse practitioner's note and agree with the documented findings and plan of care. Lung sounds are positive for breast sounds bilaterally. The findings and the i mpression was discussed with the patient. I attest to the documentation by the nurse practitioner. Time with Patient: Less than 30
[2018-11-21] MEDS: ACETAMINOPHEN TAB 325 MG TAB PO PRN (20:35)
--- NOTE | 2018-11-21 20:40 | P.PN ---
Subjective Progress Note Date: 11/21/18 88-year-old male from the extended care facility presents to hospital with fever from the extended care facility and concerns to urinary tract infection and pneumonia. Because of these concerns the infectious diseases consultation requested. Chart review of present the patient has distinct also medical troubles that includes dementia, chronic pain syndrome with spinal stenosis. The patient is demented and no further information is obtainable from the patient. 11/21/2018 Patient is without any significant change. Nursing staff relates that the sacral pressure ulceration now has more older. Patient continues to moan. Objective - Vital Signs Vital signs: Vital Signs Temp 98.4 F 11/21/18 15:31 Pulse 98 11/21/18 15:40 Resp 18 11/21/18 15:33 BP 93/57 11/21/18 15:31 Pulse Ox 94 L 11/21/18 15:31 Intake & Output 11/21/18 11/21/18 11/22/18 06:59 18:59 06:59 Intake Total 400 120 Output Total 300 Balance 100 120 Weight 68.3 kg Intake: Intake, IV Titration 400 Amount Sodium Chloride 0.9% 1, 400 000 ml @ 50 mls/hr IV . Q20H [facility] Rx#:[id number] Oral 120 Output: Urine 300 Other: Voiding Method Indwelling Catheter Indwelling Catheter - Exam 88-year-old male propped up in bed moaning HEENT: Anicteric oral mucosa dry Neck: The neck is supple without significant lymphadenopathy or thyromegaly. Lungs: Symmetrical air entry with coarse crackles in the bilateral bases Heart: Irregular with a soft S4 click or rub, PMI was nondisplaced. Abdomen: Positive bowel sounds soft and nontender without palpable masses or organomegaly. There was no guarding or rebound. Extremities: The upper extremities have excellent pulses they are symmetric, no significant petechiae or telangiectasia. No splinter hemorrhages were noted. Lower extremities have evidence of bilateral symmetric edema Neuro: Moans and does not interact with the observer Skin was significant solar damage the unstageable pressure ulcer of the sacrum now has more significant odor - Labs CBC & Chem 7: 11/21/18 07:17 11/21/18 07:17 Labs: Abnormal Lab Results - Last 24 Hours (Table) 11/21/18 11/21/18 Range/Units 07:17 07:17 WBC 3.7 L (3.8-10.6) k/uL RBC 2.42 L (4.30-5.90) m/uL Hgb 7.3 L (13.0-17.5) gm/dL Hct 23.4 L (39.0-53.0) % Plt Count 149 L (150-450) k/uL Lymphocytes # 0.5 L (1.0-4.8) k/uL BUN 52 H (9-20) mg/dL Creatinine 1.65 H (0.66-1.25) mg/dL Calcium 7.6 L (8.4-10.2) mg/dL Microbiology - Last 24 Hours (Table) 11/19/18 05:45 Urine Culture - Final Urine,Voided Enterococcus faecalis 11/20/18 12:00 Gram Stain - Preliminary Buttock Wound Culture - Preliminary Presumptive MRSA 11/19/18 06:50 Blood Culture - Preliminary Blood No Growth after 48 hours Laboratory Results WBC 3.7 k/uL (3.8-10.6) L 11/21/18 07:17 RBC 2.42 m/uL (4.30-5.90) L 11/21/18 07:17 Hgb 7.3 gm/dL (13.0-17.5) L 11/21/18 07:17 Hct 23.4 % (39.0-53.0) L 11/21/18 07:17 MCV 97.0 fL (80.0-100.0) 11/21/18 07:17 MCH 30.1 pg (25.0-35.0) 11/21/18 07:17 MCHC 31.0 g/dL (31.0-37.0) 11/21/18 07:17 RDW 15.4 % (11.5-15.5) 11/21/18 07:17 Plt Count 149 k/uL (150-450) L 11/21/18 07:17 Neutrophils % 81 % 11/21/18 07:17 Lymphocytes % 14 % 11/21/18 07:17 Monocytes % 3 % 11/21/18 07:17 Eosinophils % 1 % 11/21/18 07:17 Basophils % 0 % 11/21/18 07:17 Neutrophils # 3.0 k/uL (1.3-7.7) 11/21/18 07:17 Lymphocytes # 0.5 k/uL (1.0-4.8) L 11/21/18 07:17 Monocytes # 0.1 k/uL (0-1.0) 11/21/18 07:17 Eosinophils # 0.0 k/uL (0-0.7) 11/21/18 07:17 Basophils # 0.0 k/uL (0-0.2) 11/21/18 07:17 Hypochromasia Marked 11/21/18 07:17 Poikilocytosis Slight 11/19/18 05:08 PT 11.4 sec (9.0-12.0) 11/19/18 05:30 INR 1.1 (<1.2) 11/19/18 05:30 APTT 29.2 sec (22.0-30.0) 11/19/18 05:30 VBG pH 7.46 (7.31-7.41) H 11/19/18 06:50 VBG pCO2 41 mmHg (37-51) 11/19/18 06:50 VBG HCO3 29 mmol/L (24-28) H 11/19/18 06:50 Sodium 138 mmol/L (137-145) 11/21/18 07:17 Potassium 4.0 mmol/L (3.5-5.1) 11/21/18 07:17 Chloride 105 mmol/L (98-107) 11/21/18 07:17 Carbon Dioxide 30 mmol/L (22-30) 11/21/18 07:17 Anion Gap 3 mmol/L 11/21/18 07:17 BUN 52 mg/dL (9-20) H 11/21/18 07:17 Creatinine 1.65 mg/dL (0.66-1.25) H 11/21/18 07:17 Est GFR (CKD-EPI)AfAm 42 (>60 ml/min/1.73 sqM) 11/21/18 07:17 Est GFR (CKD-EPI)NonAf 36 (>60 ml/min/1.73 sqM) 11/21/18 07:17 Glucose 93 mg/dL (74-99) 11/21/18 07:17 POC Glucose (mg/dL) 138 mg/dL (75-99) H 11/19/18 16:08 POC Glu Meeting Manager Alina Eduardo 11/19/18 16:08 Lactic Ac Sepsis Rflx Y 11/19/18 20:20 Plasma Lactic Acid Pradeep 1.4 mmol/L (0.7-2.0) 11/20/18 07:16 Calcium 7.6 mg/dL (8.4-10.2) L 11/21/18 07:17 Magnesium 1.8 mg/dL (1.6-2.3) 11/19/18 05:08 Total Bilirubin 1.3 mg/dL (0.2-1.3) 11/19/18 05:08 AST 47 U/L (17-59) 11/19/18 05:08 ALT 36 U/L (21-72) 11/19/18 05:08 Alkaline Phosphatase 40 U/L (38-126) 11/19/18 05:08 Troponin I 0.069 ng/mL (0.000-0.034) H* 11/19/18 19:40 Total Protein 4.4 g/dL (6.3-8.2) L 11/19/18 05:08 Albumin 2.1 g/dL (3.5-5.0) L 11/19/18 05:08 TSH 0.883 mIU/L (0.465-4.680) 11/20/18 07:12 Urine Color Yellow 11/19/18 05:45 Urine Appearance Cloudy (Clear) 11/19/18 05:45 Urine pH 5.5 (5.0-8.0) 11/19/18 05:45 Ur Specific [place] 1.025 (1.001-1.035) 11/19/18 05:45 Urine Protein 2+ (Negative) H 11/19/18 05:45 Urine Glucose (UA) Negative (Negative) 11/19/18 05:45 Urine Ketones Negative (Negative) 11/19/18 05:45 Urine Blood Moderate (Negative) H 11/19/18 05:45 Urine Nitrite Negative (Negative) 11/19/18 05:45 Urine Bilirubin Negative (Negative) 11/19/18 05:45 Urine Urobilinogen <2.0 mg/dL (<2.0) 11/19/18 05:45 Ur Leukocyte Esterase Small (Negative) H 11/19/18 05:45 Urine RBC 5 /hpf (0-5) 11/19/18 05:45 Urine WBC 18 /hpf (0-5) H 11/19/18 05:45 Urine WBC Clumps Few /hpf (None) H 11/19/18 05:45 Ur Squamous Epith Cells 4 /hpf (0-4) 11/19/18 05:45 Amorphous Sediment Occasional /hpf (None) H 11/19/18 05:45 Urine Bacteria Rare /hpf (None) H 11/19/18 05:45 Urine Mucus Rare /hpf (None) H 11/19/18 05:45 Influenza Type A RNA Not Detected (Not Detectd) 11/19/18 05:08 Influenza Type B (PCR) Not Detected (Not Detectd) 11/19/18 05:08 Microbiology 11/19/18 05:45 Urine,Voided Urine Culture - Final Enterococcus faecalis 11/20/18 12:00 Buttock Gram Stain - Preliminary 11/20/18 12:00 Buttock Wound Culture - Preliminary Presumptive MRSA 11/19/18 06:50 Blood Blood Culture - Preliminary No Growth after 48 hours Assessment and Plan (1) Dementia Current Visit: Yes Status: Acute Code(s): F03.90 - UNSPECIFIED DEMENTIA WITHOUT BEHAVIORAL DISTURBANCE SNOMED Code(s): 64677334 (2) Aspiration pneumonia Current Visit: Yes Status: Acute Code(s): J69.0 - PNEUMONITIS DUE TO INHALATION OF FOOD AND VOMIT SNOMED Code(s): 788556263 (3) Enterococcus UTI Narrative/Plan: 88-year-old male with a significant recent past medical history of hospitalization, care for the extended care facility has evidence of pneumonia likely aspiration type, enterococcal urinary tract infection that does not appear to be VRE in the sacral pressure ulceration that has been cultured. Antimicrobial therapy at this point in time should include piperacillin tazobactam for treatment of potential aspiration pneumonia in a extended care facility resident, consider pseudomonas. Piperacillin also give excellent coverage for enterococcal urinary tract infection. Would continue daptomycin therapy for now if is MRSA of the sacral ulceration while culture is pending. The daptomycin however would give no coverage for pulmonary infection. Cultures were further direct antibiotic therapy, prognosis poor Protocol is being utilized the foam dressing for the sacral pressure ulceration, stage III, present on admission. 11/21/2018 patient without significant change of his status. There is odor related to the sacral ulceration. Computed tomography scan did show evidence of some prior trauma and healing fracture to the sacrum. Patient has been seen by pulmonary critical care and is not in respiratory failure at this time. Likely does have aspiration pneumonia. We'll continue with Zosyn. The coccyx ulceration continue to offload, the foam dressing is being utilized to observe drainage, pulmonary culture with MRSA continue daptomycin for now, patient's prognosis is poor. Current Visit: Yes Status: Acute Code(s): N39.0 - URINARY TRACT INFECTION, SITE NOT SPECIFIED; B95.2 - ENTEROCOCCUS THE CAUSE OF DISEASES CLASSIFIED ELSEWHERE SNOMED Code(s): 187767141063900
[2018-11-21] MEDS: MONTELUKAST 10 MG TAB PO SCH (20:48)
--- NOTE | 2018-11-21 22:11 | P.PN ---
Subjective Progress Note Date: 11/21/18 This is a 88-year-old gentleman from [facility] admitted with fever ,sepsis, bilateral pneumonia, pleural effusions,UTI in a patient with advanced dementia, anemia, recent GI bleed, contractures and multiple other medical issues. EKG reported atrial fibrillation with nonspecific ST-T wave changes, PVCs. Telemetry reports uncontrolled atrial fibrillation with heart rates up to 130. Troponin 0.076, 0.079, 0.069.Beta blockers initiated.Lactic acid normal on admission, worsened during the night up to 3.8, systolic blood pressure dropped into the mid 80s, received 500 mL fluid bolus, normal this morning. Systolic blood pressure in the low 100s this morning. Forde catheter inserted for urinary retention. Creatinine 0.95, up to 1.37. On admission, temperature 100.6, WBC 2.6. T-max currently 103.1. Blood cultures pending. Urine cultures reporting group D enterococcus. Chest x-ray reporting small to moderate by basilar airspace more on the right suggestive of pneumonia and or atelectasis versus aspiration. Small to moderate bilateral pleural effusions, more on the right. Abdomen/pelvis CT reported moderate bilateral pleural effusions, moderate bilateral lower lobe consolidation with air bronchogram suggestive of pneumonia versus aspiration, Centrilobular pulmonary emphysema, small moderate bilateral pleural effusions, mild anasarca, moderate cardiomegaly,. Oxygen requirements have increased from 3-5 L to maintain O2 sats in the low to high 90%. Maintained on Zosyn and Levaquin. 11/21/2018 echo reporting normal LV function, moderate to severe tricuspid regurgitation, moderate to severe pulmonary hypertension, right ventricle moderate to severely enlarged. T-max 102, WBC 3.7. Wound cultures reporting presumptive MRSA, urine cultures reporting enterococcus faecalis. Blood cultures reporting no growth at 48 hours. Antibiotics of daptomycin and Zosyn/Wound Care as per infectious disease. Hemoglobin 7.3. Oral intake poor, continues on strict aspiration precautions. Creatinine worsening, 1.65. Patient was a no code, no CPR, no intubation at [facility]. RN reverified no CODE STATUS with durable medical power of cloud systems administrator and order has been changed accordingly. Maintaining O2 sats in the low 90s on 3 L nasal cannula. Objective - Vital Signs Vital signs: Vital Signs Temp 103.2 F H 11/21/18 20:00 Pulse 98 11/21/18 20:23 Resp 18 11/21/18 20:00 BP 104/52 11/21/18 20:00 Pulse Ox 92 L 11/21/18 20:00 Intake & Output 11/21/18 11/21/18 11/22/18 06:59 18:59 06:59 Intake Total 400 120 200 Output Total 300 Balance 100 120 200 Weight 68.3 kg Intake: Intake, IV Titration 400 200 Amount Piperacillin-Tazobactam 3 100 .375 gm In Sodium Chloride 0.9% 100 ml @ 25 mls/hr IVPB Q8HR IZZY Rx# :[id number] Sodium Chloride 0.9% 1, 400 100 000 ml @ 100 mls/hr IV . Q10H IZZY Rx#:[id number] Oral 120 Output: Urine 300 Other: Voiding Method Indwelling Catheter Indwelling Catheter Indwelling Catheter - Exam VITAL SIGNS: As above GENERAL: Lying in bed, no acute distress, hard of hearing, sleepy-arousable ,moaning at times. Alert and oriented 1. HEENT: Conjunctivae normal. eyes normal. NECK: No JVD. No thyroid enlargement. No LNs CARDIOVASCULAR: S1, S2 irregular with rapid ventricular rate. Positive systolic murmur. RESPIRATION: Nonlabored ,Breath sounds diminished in the bases, No rhonchi. ABDOMEN: Soft, nontender . No guarding. no masses palpable. No guarding, no rigidity Bowel sounds heard. Extremities: Positive edema of bilateral upper and lower extremities PSYCHIATRY: Alert and oriented -1, mood and affect normal. NERVOUS SYSTEM: Cranial N 2-12 grossly normal. Contractures, Diffuse weakness. No focal deficits. Skin: Unstageable coccyx ulcer, present on admission Microbiology 11/19/18 05:45 Urine,Voided Urine Culture - Final Enterococcus faecalis 11/20/18 12:00 Buttock Gram Stain - Preliminary 11/20/18 12:00 Buttock Wound Culture - Preliminary Presumptive MRSA 11/19/18 06:50 Blood Blood Culture - Preliminary No Growth after 48 hours - Labs CBC & Chem 7: 11/21/18 07:17 11/21/18 07:17 Labs: Abnormal Lab Results - Last 24 Hours (Table) 11/21/18 11/21/18 Range/Units 07:17 07:17 WBC 3.7 L (3.8-10.6) k/uL RBC 2.42 L (4.30-5.90) m/uL Hgb 7.3 L (13.0-17.5) gm/dL Hct 23.4 L (39.0-53.0) % Plt Count 149 L (150-450) k/uL Lymphocytes # 0.5 L (1.0-4.8) k/uL BUN 52 H (9-20) mg/dL Creatinine 1.65 H (0.66-1.25) mg/dL Calcium 7.6 L (8.4-10.2) mg/dL Microbiology - Last 24 Hours (Table) 11/19/18 05:45 Urine Culture - Final Urine,Voided Enterococcus faecalis 11/20/18 12:00 Gram Stain - Preliminary Buttock Wound Culture - Preliminary Presumptive MRSA 11/19/18 06:50 Blood Culture - Preliminary Blood No Growth after 48 hours Assessment and Plan Assessment: -Sepsis , septic shock secondary to Bilateral aspiration versus healthcare acquired pneumonia with pleural effusions, UTI and infected sacral wound. -Hypoxic respiratory failure secondary to the above -Persistent atrial fibrillation with uncontrolled ventricular rate, not candidate for anticoagulation secondary to recent GI bleed as per cardiology - acute UTI with enterococcus faecalis. -Unstageable coccyx ulcer, present on admission, wound cultures reporting presumptive MRSA -Severe advanced dementia -To acute renal failure. -COPD -Dementia, possibly Alzheimer's, advanced -Gastroesophageal reflux disease -Hard of hearing -Moderate to severe tricuspid regurgitation -Moderate to severe pulmonary hypertension -Chronic pain syndrome secondary to lumbar spinal stenosis -No code, no CPR, no intubation Plan: Continue on current medication regime ,monitoring and symptomatic treatment. IV fluid hydration increased. Close monitoring of renal function, electrolytes with repeat labs ordered for a.m. maintain nebulized bronchodilators .Strict aspiration precautions. Antibiotics/Wound Care as per Infectious disease. Pulmonary consulted. Prognosis guarded given multiple complex medical issues. The impression and plan of care has been dictated as directed. : I performed a history and examination of this patient, discussed the same with the dictator. I agree with the dictator's note ,documented as a scribe. Any additional findings or plans will be noted.
[2018-11-22] MEDS: PIPERACILLIN-TAZOBACTAM 3.375 GM in SODIUM CHLORIDE 0.9% 100 ML IVPB SCH ×4 (00:24→23:01)
[2018-11-22] MEDS: SODIUM CHLORIDE 0.9% 1,000 ML IV SCH ×3 (00:25→20:56)
[2018-11-22] MEDS ORDERED: FUROSEMIDE 10 MG/ML 4 ML VIAL IV STA (04:23)
[2018-11-22] MEDS ORDERED: SODIUM CHLORIDE 0.9% 500 ML 250 ML IV ONE (04:23)
--- NOTE | 2018-11-22 05:07 | XR ---
EXAM: XR Chest, 1 View CLINICAL HISTORY: ITS.REASON XR Reason: change in mental status/infection worsening TECHNIQUE: Frontal view of the chest. COMPARISON: Chest x-ray 11/19/18 IMPRESSION: Cardiomegaly. Persistent right lower lobe opacity, possibly representing pneumonia, atelectasis, or edema. Mild right pleural effusion.
[2018-11-22 05:53] LABS: Basophils % (A) 0 %; Eosinophils % (A) 0 %; HGB 7.1 gm/dL (13.0-17.5); Hypochromasia Marked; Lymphocytes # (A) 0.7 k/uL (1.0-4.8); Lymphocytes % (A) 17 %; MCH 29.7 pg (25.0-35.0); Mean Platelet Volume 9.7; Monocytes # (A) 0.1 k/uL (0-1.0); Monocytes % (A) 2 %; Neutrophils # (A) 3.5 k/uL (1.3-7.7); Neutrophils % (A) 80 %; Platelet Count 159 k/uL (150-450); Poikilocytosis Slight; RBC 2.39 m/uL (4.30-5.90); RDW 15.6 % (11.5-15.5); WBC 4.5 k/uL (3.8-10.6)
[2018-11-22 06:37] LABS: Calcium 7.5 mg/dL (8.4-10.2)
[2018-11-22] MEDS: IPRATROPIUM-ALBUTEROL 3 ML NEB INHALATION SCH ×4 (08:36→19:27)
[2018-11-22] MEDS: SYMBICORT 160-4.5 MCG INHALER INHALATION SCH ×2 (08:36→19:27)
--- NOTE | 2018-11-22 10:39 | P.PN ---
Subjective Progress Note Date: 11/22/18 Principal diagnosis: Plan 8-year-old male patient of Dr. Kumar'david who is residing in [facility] and it in an extended care facility presented to the hospital with fever from extended-care this facility and concerned urinary tract infection probable aspiration pneumonia as well as possible wound culture patient also distinct medical troubles include dementia chronic pain syndrome with spinal stenosis, patient is not in good historian and just spends most of the time sleeping or moaning As above Objective - Vital Signs Vital signs: Vital Signs Temp 99.1 F 11/22/18 04:50 Pulse 89 11/22/18 04:50 Resp 19 11/22/18 04:50 BP 100/52 11/22/18 04:50 Pulse Ox 91 L 11/22/18 04:50 Intake & Output 11/21/18 11/22/18 11/22/18 18:59 06:59 18:59 Intake Total 120 200 120 Output Total 200 Balance 120 0 120 Weight 74.5 kg Intake: Intake, IV Titration 200 Amount Piperacillin-Tazobactam 3 100 .375 gm In Sodium Chloride 0.9% 100 ml @ 25 mls/hr IVPB Q8HR IZZY Rx# :[id number] Sodium Chloride 0.9% 1, 100 000 ml @ 100 mls/hr IV . Q10H IZZY Rx#:[id number] Oral 120 120 Output: Urine 200 Other: Voiding Method Indwelling Catheter Indwelling Catheter # Voids 1 - Exam General: [Patient awake, alert and oriented times 3. Patient in no acute distress.] HEENT: [PERRL. EOMI. No pharyngeal erythema or exudate.] Neck: [No adenopathy.] Cardiac: [Heart regular in rate and rhythm. No S3. No S4. No clicks, rubs. No murmur.] Lungs: [Clear to auscultation bilaterally.] Abdomen: [No mass. No organomegaly. Bowel sounds presnt and normoactive in all 4 quadrants. Pressure ulcer of sacrum significantly malodorous Extremes: Bilateral edema noted no cyanosis no claudication normal pulses] : Normal male genitalia Musculoskeletal: [No joint erythema, edema or tenderness.] Skin: [No rash.] Neurologic: [No lateralizing deficits. CN II - XII grossly intact.] Lymphatic: [No adenopathy.] - Labs CBC & Chem 7: 04/20/19 05:38 11/22/18 05:38 Labs: Abnormal Lab Results - Last 24 Hours (Table) 11/22/18 11/22/18 Range/Units 05:38 05:38 RBC 2.39 L (4.30-5.90) m/uL Hgb 7.1 L (13.0-17.5) gm/dL Hct 23.0 L (39.0-53.0) % RDW 15.6 H (11.5-15.5) % Lymphocytes # 0.7 L (1.0-4.8) k/uL BUN 56 H (9-20) mg/dL Creatinine 2.07 H (0.66-1.25) mg/dL Calcium 7.5 L (8.4-10.2) mg/dL Microbiology - Last 24 Hours (Table) 11/19/18 06:50 Blood Culture - Preliminary Blood No Growth after 72 hours 11/19/18 05:45 Urine Culture - Final Urine,Voided Enterococcus faecalis 11/20/18 12:00 Gram Stain - Preliminary Buttock Wound Culture - Preliminary Presumptive MRSA Assessment and Plan (1) Methicillin resistant Staphylococcus aureus infection greater than 3 months ago Current Visit: Yes Status: Acute Code(s): Z86.14 - PERSONAL HISTORY OF METHICILLIN RESIS STAPH INFECTION SNOMED Code(s): 895551420 (2) Aspiration pneumonia Current Visit: Yes Status: Acute Code(s): J69.0 - PNEUMONITIS DUE TO INHALATION OF FOOD AND VOMIT SNOMED Code(s): 179330188 (3) Dementia Current Visit: Yes Status: Acute Code(s): F03.90 - UNSPECIFIED DEMENTIA WITHOUT BEHAVIORAL DISTURBANCE SNOMED Code(s): 89720064 (4) Elevated troponin I level Current Visit: Yes Status: Acute Code(s): R74.8 - ABNORMAL LEVELS OF OTHER SERUM ENZYMES SNOMED Code(s): 501049794 (5) Enterococcus UTI Current Visit: Yes Status: Acute Code(s): N39.0 - URINARY TRACT INFECTION, SITE NOT SPECIFIED; B95.2 - ENTEROCOCCUS THE CAUSE OF DISEASES CLASSIFIED ELSEWHERE SNOMED Code(s): 830447868616044 (6) Pneumonia Current Visit: Yes Status: Acute Code(s): J18.9 - PNEUMONIA, UNSPECIFIED ORGANISM SNOMED Code(s): 758964019 (7) Acute delirium Current Visit: No Status: Acute Code(s): R41.0 - DISORIENTATION, UNSPECIFIED SNOMED Code(s): 8580844 (8) Low back pain Current Visit: No Status: Acute Code(s): M54.5 - LOW BACK PAIN SNOMED Code(s): 651875845 Plan: Dementia extensive medical debility Probable aspiration pneumonia Enterococcus in urine has evidence of likely aspiration type pneumonia entero coccal urinary infection does not appear to be VRE per Dr. Burton Metcalf Patient currently being covered with Zosyn and daptomycin Prognosis poor Time with Patient: Greater than 30
[2018-11-22] MEDS: GABAPENTIN 100 MG CAP PO SCH ×2 (10:58→20:42)
[2018-11-22] MEDS: FAMOTIDINE 20 MG TAB PO SCH (10:58)
[2018-11-22] MEDS: METHYL SALICYLATE/MENTHOL CREAM 5 OZ TOPICAL SCH ×2 (10:58→20:56)
[2018-11-22] MEDS: VERAPAMIL 40 MG TAB PO SCH ×3 (10:58→20:42)
[2018-11-22] MEDS: LIDOCAINE 5% PATCH TOPICAL SCH (10:58)
[2018-11-22] MEDS: POLYETHYLENE GLYCOL 3350 17 GM POWD.PACK PO SCH (13:22)
[2018-11-22] MEDS: ARIPiprazole 2 MG TAB PO SCH (13:24)
--- NOTE | 2018-11-22 15:08 | P.PN ---
Subjective Progress Note Date: 11/22/18 88-year-old male from the extended care facility presents to hospital with fever from the extended care facility and concerns to urinary tract infection and pneumonia. Because of these concerns the infectious diseases consultation requested. Chart review of present the patient has distinct also medical troubles that includes dementia, chronic pain syndrome with spinal stenosis. The patient is demented and no further information is obtainable from the patient. 11/21/2018 Patient is without any significant change. Nursing staff relates that the sacral pressure ulceration now has more older. Patient continues to moan. patient remains uncomfortable, moans. Objective - Vital Signs Vital signs: Vital Signs Temp 98.5 F 11/22/18 08:00 Pulse 89 11/22/18 12:00 Resp 19 11/22/18 12:00 BP 117/65 11/22/18 08:00 Pulse Ox 92 L 11/22/18 08:00 Intake & Output 11/21/18 11/22/18 11/22/18 18:59 06:59 18:59 Intake Total 120 200 120 Output Total 200 800 Balance 120 0 -680 Weight 74.5 kg Intake: Intake, IV Titration 200 Amount Piperacillin-Tazobactam 3 100 .375 gm In Sodium Chloride 0.9% 100 ml @ 25 mls/hr IVPB Q8HR IZZY Rx# :[id number] Sodium Chloride 0.9% 1, 100 000 ml @ 100 mls/hr IV . Q10H IZZY Rx#:[id number] Oral 120 120 Output: Urine 200 800 Other: Voiding Method Indwelling Catheter Indwelling Catheter Indwelling Catheter # Voids 1 - Exam 88-year-old male propped up in bed moaning HEENT: Anicteric oral mucosa dry Neck: The neck is supple without significant lymphadenopathy or thyromegaly. Lungs: Symmetrical air entry with coarse crackles in the bilateral bases Heart: Irregular with a soft S4 click or rub, PMI was nondisplaced. Abdomen: Positive bowel sounds soft and nontender without palpable masses or organomegaly. There was no guarding or rebound. Extremities: The upper extremities have excellent pulses they are symmetric, no significant petechiae or telangiectasia. No splinter hemorrhages were noted. Lower extremities have evidence of bilateral symmetric edema Neuro: Moans and does not interact with the observer Skin was significant solar damage the unstageable pressure ulcer of the sacrum now has more significant odor - Labs CBC & Chem 7: 11/22/18 05:38 11/22/18 05:38 Labs: Abnormal Lab Results - Last 24 Hours (Table) 11/22/18 11/22/18 Range/Units 05:38 05:38 RBC 2.39 L (4.30-5.90) m/uL Hgb 7.1 L (13.0-17.5) gm/dL Hct 23.0 L (39.0-53.0) % RDW 15.6 H (11.5-15.5) % Lymphocytes # 0.7 L (1.0-4.8) k/uL BUN 56 H (9-20) mg/dL Creatinine 2.07 H (0.66-1.25) mg/dL Calcium 7.5 L (8.4-10.2) mg/dL Microbiology - Last 24 Hours (Table) 11/20/18 12:00 Gram Stain - Final Buttock Wound Culture - Final Methicillin resist S. aureus 11/19/18 06:50 Blood Culture - Preliminary Blood No Growth after 72 hours 11/19/18 05:45 Urine Culture - Final Urine,Voided Enterococcus faecalis Laboratory Results WBC 4.5 k/uL (3.8-10.6) 11/22/18 05:38 RBC 2.39 m/uL (4.30-5.90) L 11/22/18 05:38 Hgb 7.1 gm/dL (13.0-17.5) L 11/22/18 05:38 Hct 23.0 % (39.0-53.0) L 11/22/18 05:38 MCV 96.0 fL (80.0-100.0) 11/22/18 05:38 MCH 29.7 pg (25.0-35.0) 11/22/18 05:38 MCHC 31.0 g/dL (31.0-37.0) 11/22/18 05:38 RDW 15.6 % (11.5-15.5) H 11/22/18 05:38 Plt Count 159 k/uL (150-450) 11/22/18 05:38 Neutrophils % 80 % 11/22/18 05:38 Lymphocytes % 17 % 11/22/18 05:38 Monocytes % 2 % 11/22/18 05:38 Eosinophils % 0 % 11/22/18 05:38 Basophils % 0 % 11/22/18 05:38 Neutrophils # 3.5 k/uL (1.3-7.7) 11/22/18 05:38 Lymphocytes # 0.7 k/uL (1.0-4.8) L 11/22/18 05:38 Monocytes # 0.1 k/uL (0-1.0) 11/22/18 05:38 Eosinophils # 0.0 k/uL (0-0.7) 11/22/18 05:38 Basophils # 0.0 k/uL (0-0.2) 11/22/18 05:38 Hypochromasia Marked 11/22/18 05:38 Poikilocytosis Slight 11/22/18 05:38 PT 11.4 sec (9.0-12.0) 11/19/18 05:30 INR 1.1 (<1.2) 11/19/18 05:30 APTT 29.2 sec (22.0-30.0) 11/19/18 05:30 VBG pH 7.46 (7.31-7.41) H 11/19/18 06:50 VBG pCO2 41 mmHg (37-51) 11/19/18 06:50 VBG HCO3 29 mmol/L (24-28) H 11/19/18 06:50 Sodium 138 mmol/L (137-145) 11/22/18 05:38 Potassium 4.0 mmol/L (3.5-5.1) 11/22/18 05:38 Chloride 106 mmol/L (98-107) 11/22/18 05:38 Carbon Dioxide 27 mmol/L (22-30) 11/22/18 05:38 Anion Gap 5 mmol/L 11/22/18 05:38 BUN 56 mg/dL (9-20) H 11/22/18 05:38 Creatinine 2.07 mg/dL (0.66-1.25) H 11/22/18 05:38 Est GFR (CKD-EPI)AfAm 32 (>60 ml/min/1.73 sqM) 11/22/18 05:38 Est GFR (CKD-EPI)NonAf 28 (>60 ml/min/1.73 sqM) 11/22/18 05:38 Glucose 93 mg/dL (74-99) 11/22/18 05:38 POC Glucose (mg/dL) 138 mg/dL (75-99) H 11/19/18 16:08 POC Glu Portfolio Mgr ID Alina Fernandez 11/19/18 16:08 Lactic Ac Sepsis Rflx Y 11/19/18 20:20 Plasma Lactic Acid Pradeep 1.4 mmol/L (0.7-2.0) 11/20/18 07:16 Calcium 7.5 mg/dL (8.4-10.2) L 11/22/18 05:38 Magnesium 1.8 mg/dL (1.6-2.3) 11/19/18 05:08 Total Bilirubin 1.3 mg/dL (0.2-1.3) 11/19/18 05:08 AST 47 U/L (17-59) 11/19/18 05:08 ALT 36 U/L (21-72) 11/19/18 05:08 Alkaline Phosphatase 40 U/L (38-126) 11/19/18 05:08 Troponin I 0.069 ng/mL (0.000-0.034) H* 11/19/18 19:40 Total Protein 4.4 g/dL (6.3-8.2) L 11/19/18 05:08 Albumin 2.1 g/dL (3.5-5.0) L 11/19/18 05:08 TSH 0.883 mIU/L (0.465-4.680) 11/20/18 07:12 Urine Color Yellow 11/19/18 05:45 Urine Appearance Cloudy (Clear) 11/19/18 05:45 Urine pH 5.5 (5.0-8.0) 11/19/18 05:45 Ur Specific [place] 1.025 (1.001-1.035) 11/19/18 05:45 Urine Protein 2+ (Negative) H 11/19/18 05:45 Urine Glucose (UA) Negative (Negative) 11/19/18 05:45 Urine Ketones Negative (Negative) 11/19/18 05:45 Urine Blood Moderate (Negative) H 11/19/18 05:45 Urine Nitrite Negative (Negative) 11/19/18 05:45 Urine Bilirubin Negative (Negative) 11/19/18 05:45 Urine Urobilinogen <2.0 mg/dL (<2.0) 11/19/18 05:45 Ur Leukocyte Esterase Small (Negative) H 11/19/18 05:45 Urine RBC 5 /hpf (0-5) 11/19/18 05:45 Urine WBC 18 /hpf (0-5) H 11/19/18 05:45 Urine WBC Clumps Few /hpf (None) H 11/19/18 05:45 Ur Squamous Epith Cells 4 /hpf (0-4) 11/19/18 05:45 Amorphous Sediment Occasional /hpf (None) H 11/19/18 05:45 Urine Bacteria Rare /hpf (None) H 11/19/18 05:45 Urine Mucus Rare /hpf (None) H 11/19/18 05:45 Influenza Type A RNA Not Detected (Not Detectd) 11/19/18 05:08 Influenza Type B (PCR) Not Detected (Not Detectd) 11/19/18 05:08 Microbiology 11/20/18 12:00 Buttock Gram Stain - Final 11/20/18 12:00 Buttock Wound Culture - Final Methicillin resist S. aureus 11/19/18 06:50 Blood Blood Culture - Preliminary No Growth after 72 hours 11/19/18 05:45 Urine,Voided Urine Culture - Final Enterococcus faecalis Assessment and Plan (1) Dementia Current Visit: Yes Status: Acute Code(s): F03.90 - UNSPECIFIED DEMENTIA WITHOUT BEHAVIORAL DISTURBANCE SNOMED Code(s): 17672538 (2) Aspiration pneumonia Current Visit: Yes Status: Acute Code(s): J69.0 - PNEUMONITIS DUE TO INHALATION OF FOOD AND VOMIT SNOMED Code(s): 810964585 (3) Enterococcus UTI Narrative/Plan: 88-year-old male with a significant recent past medical history of hospitalization, care for the extended care facility has evidence of pneumonia likely aspiration type, enterococcal urinary tract infection that does not appear to be VRE in the sacral pressure ulceration that has been cultured. Antimicrobial therapy at this point in time should include piperacillin tazobactam for treatment of potential aspiration pneumonia in a extended care facility resident, consider pseudomonas. Piperacillin also give excellent coverage for enterococcal urinary tract infection. Would continue daptomycin therapy for now if is MRSA of the sacral ulceration while culture is pending. The daptomycin however would give no coverage for pulmonary infection. Cultures were further direct antibiotic therapy, prognosis poor Protocol is being utilized the foam dressing for the sacral pressure ulceration, stage III, present on admission. 11/21/2018 patient without significant change of his status. There is odor related to the sacral ulceration. Computed tomography scan did show evidence of some prior trauma and healing fracture to the sacrum. Patient has been seen by pulmonary critical care and is not in respiratory failure at this time. Likely does have aspiration pneumonia. We'll continue with Zosyn. The coccyx ulceration continue to offload, the foam dressing is being utilized to observe drainage, pulmonary culture with MRSA continue daptomycin for now, patient's prognosis is poor. 11/22/2018 the patient is with little change of status except there is no evidence of worsening renal failure. With this the daptomycin doses been adjusted. For treatment of the pneumonia Zosyn continues for now. The MRSA from the sacral pressure ulceration is being treated with the daptomycin. Overall prognosis remains quite poor. Current Visit: Yes Status: Acute Code(s): N39.0 - URINARY TRACT INFECTION, SITE NOT SPECIFIED; B95.2 - ENTEROCOCCUS THE CAUSE OF DISEASES CLASSIFIED ELSEWHERE SNOMED Code(s): 207493189610702
[2018-11-22] MEDS: MONTELUKAST 10 MG TAB PO SCH (20:42)
[2018-11-22] MEDS ORDERED: ACETAMINOPHEN IV (For NPO) 1,000 MG in EMPTY BAG 1 BAG IVPB PRN (20:53)
[2018-11-23] MEDS: GABAPENTIN 100 MG CAP PO SCH (08:53)
[2018-11-23] MEDS: FAMOTIDINE 20 MG TAB PO SCH (08:53)
[2018-11-23] MEDS: ARIPiprazole 2 MG TAB PO SCH (08:53)
[2018-11-23] MEDS: VERAPAMIL 40 MG TAB PO SCH (08:54)
[2018-11-23] MEDS: POLYETHYLENE GLYCOL 3350 17 GM POWD.PACK PO SCH (08:54)
[2018-11-23] MEDS ORDERED: DAPTOmycin 500 MG in SODIUM CHLORIDE 0.9% 50 ML IVPB SCH (09:00)
[2018-11-23] MEDS: IPRATROPIUM-ALBUTEROL 3 ML NEB INHALATION SCH (09:19)
[2018-11-23] MEDS: SYMBICORT 160-4.5 MCG INHALER INHALATION SCH (09:19)
[2018-11-23 09:20] VITALS: BP 105/52; PULSE 88; RESP 20; TEMP 99.6
--- NOTE | 2018-11-25 16:45 | CDI ---
Documentation Clarification Form Date: 11/25/18 From: [facility] Phone: If questions call Sarah Mejia @ [phone], Hours-8:30 am & 5 pm M- F Admit Date: 11/20/2018 4:13:00 PM Patient Name: Shahriar Rojas Visit Number: [id number] Discharge Date: 11/23/2018 10:16:00 AM ATTENTION: The Clinical Documentation Specialists (CDI) and [facility] Coding Staff appreciate your assistance in clarifying documentation. Please respond to the clarification below the line at the bottom and electronically sign. The CDI & [facility] Coding staff will review the response and follow-up if needed. Please note: Queries are made part of the Legal Health Record. If you have any questions, please contact the author of this message via ITS. Dr. Dmitry Canas CHF is documented in the ED note, H&P and two consults under past medical hx. History/Risk Factors: HTN, persistent atrial fibrillaition, sepsis BNP: none Echocardiogram Results:left ventricular systolic function is low-normal w EF between 50 -55% Chest X Ray: 11/22 - cardiomegaly, persistent right lower lobe opacity, possibly representing pneumonia, atelectasis, or edeme, mild right pleural effusion Treatment: 11/22-Lasixc IV 40 mg once STA In your professional opinion, can you please clarify the acuity and type of CHF if known? TYPE Systolic Heart Failure Diastolic Heart Failure Systolic & Diastolic Heart Failure ACUITY Acute Chronic Acute on Chronic Heart Failure Unable to Determine Other, please specify chronic diastolic MTDD
== END 2018-11-23 10:16 | disposition hospice, inpatient (51) | DRG 871 ==
LOC: EC 04:55 → 3SCARD 08:14 → OBSVTOIN 11-20 16:13
PROVIDERS: ADMIT Family Medicine; ATTEND Family Medicine
DX: A41.9 Sepsis, unspecified organism (principal); J96.01 Acute respiratory failure with hypoxia; J69.0 Pneumonitis due to inhalation of food and vomit; R65.21 Severe sepsis with septic shock; N17.9 Acute kidney failure, unspecified; E87.2 Acidosis; I50.32 Chronic diastolic (congestive) heart failure; I48.1 Persistent atrial fibrillation; N39.0 Urinary tract infection, site not specified; M84.48XA Pathological fracture, other site, initial encounter for fracture; L89.150 Pressure ulcer of sacral region, unstageable; Z66 Do not resuscitate; I27.20 Pulmonary hypertension, unspecified; J44.9 Chronic obstructive pulmonary disease, unspecified; I07.1 Rheumatic tricuspid insufficiency; F03.90 Unspecified dementia, unspecified severity, without behavioral disturbance, psychotic disturbance, mood disturbance, and anxiety; D64.9 Anemia, unspecified; I11.0 Hypertensive heart disease with heart failure; B95.2 Enterococcus as the cause of diseases classified elsewhere; B95.62 Methicillin resistant Staphylococcus aureus infection as the cause of diseases classified elsewhere; J45.20 Mild intermittent asthma, uncomplicated; I49.3 Ventricular premature depolarization; M16.0 Bilateral primary osteoarthritis of hip; E78.00 Pure hypercholesterolemia, unspecified; G89.4 Chronic pain syndrome; M48.061 Spinal stenosis, lumbar region without neurogenic claudication; M51.17 Intervertebral disc disorders with radiculopathy, lumbosacral region; K22.5 Diverticulum of esophagus, acquired; K21.9 Gastro-esophageal reflux disease without esophagitis; H91.93 Unspecified hearing loss, bilateral; R77.8 Other specified abnormalities of plasma proteins; Z79.51 Long term (current) use of inhaled steroids; Z79.899 Other long term (current) drug therapy; Z90.49 Acquired absence of other specified parts of digestive tract; Z98.890 Other specified postprocedural states; Z88.8 Allergy status to other drugs, medicaments and biological substances; Z82.49 Family history of ischemic heart disease and other diseases of the circulatory system
CPT/HCPCS: 36415; 51702; 71045; 74176; 80048; 80053; 81001; 82803; 83605; 83735; 84443; 84484; 85025; 85610; 85730; 87040; 87070; 87077; 87086; 87186; 87205; 87502; 93005; 93306; 94640; 94760; 99285

== ENCOUNTER 2018-11-23 09:40 | Inpatient (IN) | payer MEDICAID ==
[2018-11-23] MEDS ORDERED: ACETAMINOPHEN SUPPOSITORY 650 MG SUPP RECTAL PRN (09:49)
[2018-11-23] MEDS ORDERED: LORazepam 2 MG/ML INJ IV PRN (09:49)
[2018-11-23] MEDS ORDERED: ONDANSETRON 4 MG/2 ML VIAL IVP PRN (09:49)
[2018-11-23] MEDS ORDERED: ATROPINE OPHTH SOLN 1% 5ML BTL SUBLINGUAL PRN (09:49)
[2018-11-23] MEDS ORDERED: BISACODYL 10 MG SUPP RECTAL PRN (09:56)
[2018-11-23] MEDS ORDERED: IPRATROPIUM-ALBUTEROL 3 ML NEB INHALATION PRN (09:57)
[2018-11-23] MEDS ORDERED: SCOPOLAMINE 1.5MG/72HR PATCH TRANSDERM SCH (10:00)
[2018-11-23] MEDS: MORPHINE SULFATE (100 MG/2 ML) 100 MG in SODIUM CHLORIDE 0.9% 100 ML IV SCH (11:32)
--- NOTE | 2018-11-23 11:58 | P.PN ---
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 The legal guardian agreed with my recommendation proceeding with hospice care he said that he felt that the gentleman would never want to live the way he had been living for approximately the last month and that they had discussed this multiple times when the patient was much more lucid. Hospice consult was placed, and [facility] [place] hosp[facility] nurse perform consultation. Objective - Vital Signs Vital signs: Intake & Output 11/22/18 11/23/18 11/23/18 18:59 06:59 18:59 Weight 78 kg
[2018-11-23] MEDS ORDERED: ACETAMINOPHEN IV (For NPO) 1,000 MG in EMPTY BAG 1 BAG IVPB ONE (17:00)
[2018-11-24] MEDS: MORPHINE SULFATE (100 MG/2 ML) 100 MG in SODIUM CHLORIDE 0.9% 100 ML IV SCH (01:05)
[2018-11-24 04:13] VITALS: BP 65/30; PULSE 95; RESP 12; TEMP 99.8
== END 2018-11-24 08:42 | disposition expired | DRG 951 ==
LOC: 3SCARD 10:18
PROVIDERS: ADMIT Family Medicine; ATTEND Family Medicine
DX: Z51.5 Encounter for palliative care (principal); L89.153 Pressure ulcer of sacral region, stage 3; A41.9 Sepsis, unspecified organism; J18.9 Pneumonia, unspecified organism; J96.01 Acute respiratory failure with hypoxia; N39.0 Urinary tract infection, site not specified; I48.1 Persistent atrial fibrillation; F03.90 Unspecified dementia, unspecified severity, without behavioral disturbance, psychotic disturbance, mood disturbance, and anxiety; Z87.440 Personal history of urinary (tract) infections; G89.29 Other chronic pain; M48.061 Spinal stenosis, lumbar region without neurogenic claudication; Z79.1 Long term (current) use of non-steroidal anti-inflammatories (NSAID); Z79.891 Long term (current) use of opiate analgesic; Z79.51 Long term (current) use of inhaled steroids; Z79.899 Other long term (current) drug therapy; Z88.0 Allergy status to penicillin
CPT/HCPCS: 94640